=== PATIENT | male | born 1945 | race Two or more races ===

== ENCOUNTER 2020-02-04 22:49 | Inpatient (IN) | payer MEDICAID ==
[~2020-02-04] VITALS: Ht 157.5 cm; Wt 77.7 kg
[2020-02-04] MEDS ORDERED: ACETAMINOPHEN 650 mg PER 20 mL UD PO ONE (23:30)
[2020-02-04] MEDS ORDERED: PIPERACILLIN-TAZOB 3.375GM 100 ML IV ONE (23:45)
[2020-02-04 23:54] LABS: Basophils # (auto) 0.1 10 ^3/uL (0-0.2); Basophils % (auto) 0.5 % (0.0-2.0); Eosinophils # (auto) 0.8 10 ^3/uL (0-0.8); Eosinophils % (auto) 6.6 % (0.0-7.0); Hematocrit 30.4 % (41.0-53.0); Hemoglobin 10.3 g/dL (13.5-17.5); Lymphocytes # (auto) 0.6 10 ^3/uL (0.4-5.4); Lymphocytes % (auto) 4.6 % (10.0-50.0); Mean Corpuscular Hemoglobin 30.4 pg (28.0-32.0); Mean Corpuscular Hgb Conc. 33.8 g/dL (32.0-36.0); Mean Corpuscular Volume 89.8 fL (80.0-100.0); Monocytes # (auto) 0.6 10 ^3/uL (0-1.3); Monocytes % (auto) 5.3 % (0.0-12.0); Neutrophils # (auto) 10.1 10 ^3/uL (1.6-8.6); Platelet Count (auto) 257 10^3/uL (140-450); Red Blood Cells 3.38 10^6/uL (4.5-5.90); Red Cell Distribution Width 14.7 % (11.8-14.3); White Blood Cell 12.2 10^3/uL (4.4-10.8)
[2020-02-05 00:11] LABS: Albumin 3.2 g/dL (3.4-5.0); BUN/Creatinine Ratio 4.7; Calcium 8.8 mg/dL (8.5-10.1); Potassium 5.1 mmol/L (3.5-5.1)
[2020-02-05 00:16] LABS: Bilirubin, Total 0.4 mg/dL (0.2-1.0); Total Protein 7.3 g/dL (6.4-8.2)
[2020-02-05 01:04] LABS: Lactic Acid w/Reflex 2.1 mmol/L (0.4-2.0)
[2020-02-05] MEDS ORDERED: NITROGLYCERIN 0.4 MG SL TAB SL PRN (04:00)
[2020-02-05] MEDS ORDERED: MORPHINE SULFATE 4 MG/ML SYR/VIAL IV PRN (04:00)
[2020-02-05] MEDS ORDERED: VANCOMYCIN 1GM/250ML 250 ML IV ONE (04:00)
[2020-02-05] MEDS ORDERED: DEXTROSE (50%) 50ML SYRG IV PRN (04:00)
[2020-02-05] MEDS ORDERED: VANCOMYCIN PER PHARMACY 0 MG IV SCH (04:00)
[2020-02-05] MEDS: ACCU-CHEK COMFORT CURVE STRIP VI SCH ×6 (04:36→23:59)
[2020-02-05] MEDS: InsuLIN REG 1unit/0.01ml Soln (100units/ml) SC SCH ×6 (04:36→23:59)
[2020-02-05] MEDS: ENOXAPARIN SOD 80 MG/0.8ML SYRINGE SC SCH (05:27)
[2020-02-05] MEDS ORDERED: PIPERACILLIN-TAZOB 2.25GM 0.75 GM in D5W 5% 50 ML IV SCH ×2 (05:45→11:00)
[2020-02-05] MEDS ORDERED: PIPERACILLIN-TAZOB 3.375GM 100 ML IV SCH (06:00)
[2020-02-05 06:33] LABS: Basophils # (auto) 0.1 10 ^3/uL (0-0.2); Basophils % (auto) 0.7 % (0.0-2.0); Eosinophils # (auto) 0.5 10 ^3/uL (0-0.8); Hematocrit 31.7 % (41.0-53.0); Hemoglobin 10.9 g/dL (13.5-17.5); Lymphocytes # (auto) 0.8 10 ^3/uL (0.4-5.4); Mean Corpuscular Hemoglobin 30.9 pg (28.0-32.0); Mean Corpuscular Hgb Conc. 34.5 g/dL (32.0-36.0); Mean Corpuscular Volume 89.6 fL (80.0-100.0); Monocytes # (auto) 0.7 10 ^3/uL (0-1.3); Monocytes % (auto) 7.2 % (0.0-12.0); Neutrophils # (auto) 7.8 10 ^3/uL (1.6-8.6); Neutrophils % (auto) 79.1 % (37.0-80.0); Platelet Count (auto) 245 10^3/uL (140-450); Red Blood Cells 3.53 10^6/uL (4.5-5.90); Red Cell Distribution Width 14.5 % (11.8-14.3); White Blood Cell 9.9 10^3/uL (4.4-10.8)
[2020-02-05 08:12] LABS: BUN/Creatinine Ratio 4.7
[2020-02-05] MEDS ORDERED: CALCIUM GLUC 4.65meq/50ml D5AE 50 ML IV ONE (08:45)
[2020-02-05] MEDS ORDERED: InsuLIN REG 1unit/0.01ml Soln (100units/ml) IV ONE (08:45)
[2020-02-05] MEDS ORDERED: SODIUM ZIRCONIUM CYCL 10 GM PAK PO ONE (08:45)
[2020-02-05] MEDS ORDERED: DEXTROSE (50%) 50ML SYRG IV ONE (08:45)
[2020-02-05] MEDS ORDERED: SODIUM BICARBONATE 8.4 % INJ 50ML VIAL IV ONE (08:45)
[2020-02-05] MEDS: CLOPIDOGREL BISULFATE 75 MG TAB PO SCH (09:50)
[2020-02-05] MEDS ORDERED: LISINOPRIL 20 MG TAB PO SCH (10:00)
[2020-02-05] MEDS: ASPirin 81 mg TAB PO SCH (10:00)
[2020-02-05 11:00] VITALS: BP 157/79
--- NOTE | 2020-02-05 11:00 | NUR ---
Admit to [facility]ENNIFER[facility]ALITO admitted to [facility] via gurney on nurse monitoring, and portable 02. Patient transferred to bed, connected to unit monitoring and oxygen, [facility]. Patient awake and alert. Primary Anguillan speaking, [facility] clinical trial head utilized in communicating with patient. No S/S of SOB/distress or pain. Patient saturation 94% at 2 LPM oxygen via nasal cannula. LT arm AV fistula with bruit. See interventions for complete assessment. Bed locked on low position, side rails up x2, bed alarms on at all times, call crisostomo within reach, instructed to call for needed assistance. Patient oriented to Radha Allen primary RN, unit, room, bed, and unit policies regarding patient care and visiting hours. All questions and concerns addressed, patient verbalized understanding.
--- NOTE | 2020-02-05 11:05 | NUR ---
Per Lexie RIOS, they already called Nephrology consult to Dr Alcantara.
[2020-02-05 11:45] VITALS: BP 146/62
--- NOTE | 2020-02-05 11:57 | NUR ---
Lisinopril held at this time, patient for possible HD today.
[2020-02-05] MEDS: METOPROLOL TARTRATE 25 MG TAB PO SCH ×2 (12:00→21:58)
[2020-02-05] MEDS: DOCUSATE SOD 100 MG CAP PO SCH (12:00)
[2020-02-05] MEDS: PIPERACILLIN-TAZOB 2.25GM 50 ML IV SCH ×2 (12:00→21:57)
[2020-02-05 12:50] LABS: Potassium 4.9 mmol/L (3.5-5.1)
[2020-02-05 12:57] LABS: BUN/Creatinine Ratio 4.9; Calcium 9.5 mg/dL (8.5-10.1)
[2020-02-05] MEDS ORDERED: ESOM40CA83 PO (14:21)
[2020-02-05] MEDS ORDERED: FURO40TA4 PO (14:21)
[2020-02-05] MEDS ORDERED: SEVE800T PO (14:21)
[2020-02-05] MEDS ORDERED: AMLO5TAB15 PO (14:21)
[2020-02-05] MEDS ORDERED: NEPVITT PO (14:21)
--- NOTE | 2020-02-05 14:51 | NUR ---
Dr Mata at bedside, updated on patient's status. Patient seen and examined. Will carry out new orders.
--- NOTE | 2020-02-05 15:00 | NUR ---
Cindy Carnes EMERGENCY DEPARTMENT at bedside, updated on patient's status. Patient seen and examined. Will carry out new orders.
[2020-02-05 15:45] VITALS: BP 132/60
--- NOTE | 2020-02-05 15:48 | NUR ---
Patient's temperature 100.8F orally. Cooling measures done. Will continue to monitor.
[2020-02-05] MEDS: ACETAMINOPHEN 325 MG TAB PO PRN (16:50)
--- NOTE | 2020-02-05 16:51 | NUR ---
Patient's temperature 101F orally, Tylenol PRN given, will continue to monitor.
--- NOTE | 2020-02-05 17:55 | NUR ---
Patient's temperature 98.3 orally. Will continue to monitor.
--- NOTE | 2020-02-05 18:30 | NUR ---
Follow-up consult to Dr Alcantara.
--- NOTE | 2020-02-05 18:45 | NUR ---
Received call from Dr Mosquera, informed that patient goes to [facility] with Dr Alcantara. verbalized understanding and states "That's ok."
--- NOTE | 2020-02-05 18:51 | NUR ---
Spoke to Dr Alcantara over the phone, updated on patient's status. Plan to do HD tomorrow. Will carry out new orders.
--- NOTE | 2020-02-05 19:25 | NUR ---
Opening Shift Note ASSUMED CARE OF PATIENT IN ROOM 262. REPORT RECEIVED FROM DAY NURSE. PT AWAKE AND ALERT, NO S/S RESPIRATORY DISTRESS OR REPORTS OF PAIN. COMPLETE PHYSICAL ASSESSMENT UNDER INTERVENTIONS. CALL LIGHT WITHIN REACH AND BED LOCKED FOR SAFETY. WILL CONTINUE TO MONITOR FOR CHANGES.
[2020-02-05 20:00] VITALS: BP 140/69
[2020-02-05] MEDS: ATORVASTATIN 20 MG TAB PO SCH (21:57)
[2020-02-06] VITALS (7 sets, daily range): BP systolic 132–144; BP diastolic 63–77
--- NOTE | 2020-02-06 01:27 | NUR ---
HOSPITALIST PAGED AFTER USING RESTROOM PT FEELS SOB. PATIENT REPOSITIONED, AND HOB INCREASED. LUNG SOUNDS SOUNDING MORE COURSE.
--- NOTE | 2020-02-06 01:43 | NUR ---
RT AT BEDSIDE PT GETTING BREATHING TREATMENT.
[2020-02-06] MEDS: ALBUTEROL SULF 2.5 MG/0.5ML(0.5%) NEB SOLN NEB PRN ×2 (01:47→11:48)
--- NOTE | 2020-02-06 01:53 | NUR ---
RE-ASSESSMENT PT STILL SOUNDING COURSE AND CRACKLES THROUGHOUT. RR MID 30S PT USING ACCESSORY MUSCLES WITH SHALLOW BREATHING. USING SIMPLE MASK NOW. WILL NOTIFY HOSPITALIST.
--- NOTE | 2020-02-06 01:54 | NUR ---
Respiratory note: POST MED NEB TX PT STILL BREATH SOUNDS ARE COURSE T/O WITH INSPIRATORY CRACKLES HEARD T/O. PLACED PT ON SIMPLE MASK AT 8LPM TO MAINTAIN SATS ABOVE 92%. RN MADE AWARE OF O2 CHANGE. BLANCA CHUNGD MIRYAM WILL BE PAGED TO HOPEFULLY OBTAIN NEW ORDERS FOR PT. WILL CONTINUE TO MONITOR.
[2020-02-06] MEDS ORDERED: FUROSEMIDE 40 MG/4 ML VIAL ONE (02:18)
--- NOTE | 2020-02-06 02:22 | NUR ---
RESPIRATORY STATUS: Pt in respiratory distress. Pt's O2 sats 90-91% on 8 liters simple mask; HR in low 100s (Had previously been in 70s-80s), and respiratory rate in 30s-40s; lung sounds coarse. Pt states he feels SOB. Hospitalist notified of pt's status following breathing treatment and ADULT MINISTRIES DIRECTOR assessment. Order received for Lasix 40mg IVP x1. Lasix administered at this time. To continue to monitor pt.
[2020-02-06] MEDS ORDERED: FUROSEMIDE 40 MG/4 ML VIAL IV ONE (02:30)
[2020-02-06] MEDS: ONDANSETRON HCL 4 MG/2 ML VIAL IV PRN (02:40)
--- NOTE | 2020-02-06 02:40 | NUR ---
NAUSEA: Pt c/o nausea. Zofran 4mg IVP given for nausea as per order. To continue to monitor pt.
--- NOTE | 2020-02-06 02:45 | NUR ---
Respiratory note: Increased o2 consumption. Now at 12lpm on simple mask. Pt getting new IV access at this time, retort load expediterBLANCA Echols and BLANCA Gauthier at bedside. Pt has nausea at this time unable to place on bipap at this time.
--- NOTE | 2020-02-06 02:57 | NUR ---
RESPIRATORY STATUS: Pt continues to experience respiratory distress. Hospitalist notified and order received to begin pt on Bipap. UTILITIES EQUIPMENT REPAIRER at bedside at this time setting up Bipap for pt. To continue to monitor pt.
--- NOTE | 2020-02-06 03:00 | NUR ---
Respiratory note: PLACED PT ON BIPAP B11, BIPAP CONNECTED TO RED OUTLET AND O2 WALL SOURCE. ALARMS ARE SET AND AUDIBLE. AMBU BAG AND MASK AT BEDSIDE. BS ARE COURSE CRACKLES T/O, PT PLACED ON BIPAP DUE TO INCREASED WOB AND INCREASED O2 CONSUMPTION. PT LAST ON 12LPM SIMPLE MASK POX 84%.
[2020-02-06] MEDS: InsuLIN REG 1unit/0.01ml Soln (100units/ml) SC SCH ×6 (04:00→23:13)
[2020-02-06] MEDS: ACCU-CHEK COMFORT CURVE STRIP VI SCH ×6 (04:00→23:13)
--- NOTE | 2020-02-06 04:29 | NUR ---
Respiratory note: PT OFF BIPAP ON 4LPM NC POX 94-96%, BS IMPROVED, BS FINE COURSE T/O. PT COMFORTABLY RESTING IN BED. RN SCAR AWARE OF CHANGES
--- NOTE | 2020-02-06 05:00 | NUR ---
UNABLE TO COLLECT URINE SAMPLE PT HAD LITTLE URINE AND WHEN HE DID HE SAT ON TOILET AND WAS NOT ABLE TO COLLECT.
[2020-02-06] MEDS: ENOXAPARIN SOD 80 MG/0.8ML SYRINGE SC SCH (05:15)
[2020-02-06 05:39] LABS: Basophils # (auto) 0 10 ^3/uL (0-0.2); Basophils % (auto) 0.3 % (0.0-2.0); Eosinophils # (auto) 0.1 10 ^3/uL (0-0.8); Eosinophils % (auto) 0.8 % (0.0-7.0); Hematocrit 30.8 % (41.0-53.0); Hemoglobin 10.3 g/dL (13.5-17.5); Lymphocytes # (auto) 0.4 10 ^3/uL (0.4-5.4); Lymphocytes % (auto) 3.2 % (10.0-50.0); Mean Corpuscular Hemoglobin 30.4 pg (28.0-32.0); Mean Corpuscular Hgb Conc. 33.5 g/dL (32.0-36.0); Mean Corpuscular Volume 90.6 fL (80.0-100.0); Monocytes # (auto) 0.9 10 ^3/uL (0-1.3); Monocytes % (auto) 7.7 % (0.0-12.0); Nucleated Red Blood Cells % 0.1 %; Platelet Count (auto) 232 10^3/uL (140-450); Red Blood Cells 3.39 10^6/uL (4.5-5.90); Red Cell Distribution Width 14.4 % (11.8-14.3); White Blood Cell 11.4 10^3/uL (4.4-10.8)
[2020-02-06 05:52] LABS: INR 1.17 (0.9-1.15)
[2020-02-06 06:10] LABS: BUN/Creatinine Ratio 5.4; Calcium 9.3 mg/dL (8.5-10.1)
[2020-02-06 06:13] LABS: Potassium 6.7 mmol/L (3.5-5.1)
[2020-02-06] MEDS ORDERED: SODIUM CHL 0.9% 1000 ML BAG XX ONE (07:00)
--- NOTE | 2020-02-06 07:01 | NUR ---
HOSPITALIST PAGED REGARDING LAB VALUES THIS MORNING.
--- NOTE | 2020-02-06 07:38 | NUR ---
REPORT GIVEN PT APPEARS TO BE RESTING.
--- NOTE | 2020-02-06 07:50 | NUR ---
HD RN AT BEDSIDE: HD STARTED AT THIS TIME PATIENT LAYING SUPINE IN BED AT THIS TIME. PATIENT A & O X4 CALM AND FOLLOWS COMMANDS. PATIENT GEORGIAN SPEAKING ONLY. BLANCA TRIPLETT AT BEDSIDE MONITORING PATIENT. WILL CONTINUE TO MONITOR PATIENT. CONTINUE CARE.
[2020-02-06] MEDS ORDERED: MORPHINE SULF INJ 2 MG/ML SYRINGE 1ML IV ONE (09:30)
--- NOTE | 2020-02-06 09:30 | NUR ---
DR. TAVARES AT BEDSIDE: ORDERS MD UPDATED ON PT'S STATUS, LABS AND POC FOR TODAY. ORDERS GIVEN AND TO BE CARRIED OUT. SEE COMMUNICATION ORDER, PER DR. TAVARES.
[2020-02-06] MEDS: PIPERACILLIN-TAZOB 2.25GM 50 ML IV SCH ×2 (10:00→21:52)
[2020-02-06] MEDS: DOCUSATE SOD 100 MG CAP PO SCH (10:00)
[2020-02-06] MEDS: CLOPIDOGREL BISULFATE 75 MG TAB PO SCH (10:00)
--- NOTE | 2020-02-06 10:00 | NUR ---
FAMILY AT BEDSIDE: UPDATE TALKING WITH PATIENT'S SON AND AT BEDSIDE. UPDATED THEM ON PT'S CURRENT STATUS AND POC FOR TODAY. FAMILY REMAINS AT BEDSIDE TO VISIT PATIENT, WHILE PATIENT IS RECEIVING HD. HD RN AT BEDSIDE. CONTINUE CARE.
--- NOTE | 2020-02-06 10:41 | NUR ---
HD COMPLETED CURRENT POST HD VS: HR 99, BP 141/77, RR 16. HD RN REMOVED 3.3 LITERS FROM PATIENT DURING HD. CONTINUE CARE.
--- NOTE | 2020-02-06 11:48 | NUR ---
Respiratory note: ASSESSED PT FOR BREATHING TX. PT STATED HE WAS HAVING A SLIGHT DIFFICULT TIME BREATHING. PT IS AWAKE AND ALERT. PT IS CURRENTLY ON 4 L NASAL CANNULA. PT RECEIVED BREATHING TX W/O ANY ADVERSE REACTIONS. HR 102, RR 21, SPO2 98%. WILL CONTINUE TO MONITOR PT. BLANCA RITCHIE IS AWARE.
[2020-02-06] MEDS: ASPirin 81 mg TAB PO SCH (12:35)
[2020-02-06] MEDS: METOPROLOL TARTRATE 25 MG TAB PO SCH ×2 (12:35→21:53)
[2020-02-06] MEDS ORDERED: SODIUM ZIRCONIUM CYCL 10 GM PAK PO ONE (13:30)
--- NOTE | 2020-02-06 13:30 | NUR ---
DR. SIMS AT BEDSIDE: ORDERS MD UPDATED ON PT'S CURRENT STATUS, LABS AND POC FOR TODAY. WILL CARRY OUT ORDERS GIVEN. WILL CONTINUE TO MONITOR.
[2020-02-06] MEDS ORDERED: OPTISON 3ml Vial for INJ IV ONE (15:57)
[2020-02-06] MEDS ORDERED: VANCOMYCIN 1GM/250ML 250 ML IV ONE (16:00)
[2020-02-06] MEDS ORDERED: guaiFENesin-DM 100/10mg/5ml SYR PO PRN (16:45)
--- NOTE | 2020-02-06 16:46 | NUR ---
ASSESSMENT PER CONSULT HELP WITH INSURANCE. PER DUSTY HE WILL SEE PATIENT TODAY TO ASSESS FOR INSURANCE. Addendum: 02/06/20 at 1647 by Adenike Perales Amended: Links added.
[2020-02-06 18:09] LABS: BUN/Creatinine Ratio 4.8; Calcium 9.4 mg/dL (8.5-10.1); Potassium 5.1 mmol/L (3.5-5.1)
[2020-02-06] MEDS: ACETYLCYSTEINE 10 %(100MG/ML) SOL 4ML NEB SCH (18:33)
[2020-02-06] MEDS: IPRATROPIUM BROM 0.5 MG/2.5ML INH SOL NEB SCH (18:33)
[2020-02-06] MEDS: ALBUTEROL SULF 2.5 MG/0.5ML(0.5%) NEB SOLN NEB SCH (18:33)
--- NOTE | 2020-02-06 20:00 | NUR ---
SHIFT OPENING NOTE RECEIVED PATIENT AWAKE, ALERT AND ORIENTED X4. NO SOB, DISTRESS OR PAIN NOTED. ON 4L N/C POX 96%. PATIENT RECEIVED DIALYSIS EARLIER TODAY WITH ACCESS SITE LEFT AV FISTULA 3.3 L OUT. PATIENT IS OLIGURIC WITH URINAL AT BEDSIDE. PHYSICAL ASSESSMENT COMPLETED, SEE INTERVENTIONS. INSTRUCTED ON POC AND TO CALL FOR ASSIST NEEDED. BED IS IN THE LOWEST POSITION WITH THE SIDE RAILS UP X2, CALL LIGHT IS WITHIN REACH.
[2020-02-06] MEDS: ATORVASTATIN 20 MG TAB PO SCH (21:53)
[2020-02-06] MEDS ORDERED: CARVEDILOL 12.5 MG TAB PO SCH (22:00)
[2020-02-07] VITALS: BP 125/59
[2020-02-07] MEDS: ALBUTEROL SULF 2.5 MG/0.5ML(0.5%) NEB SOLN NEB PRN ×2 (00:19→23:55)
[2020-02-07] MEDS: ACETYLCYSTEINE 10 %(100MG/ML) SOL 4ML NEB SCH ×5 (00:19→23:55)
--- NOTE | 2020-02-07 01:55 | NUR ---
MORNING HYGIENE CARE FULL BED BATH PERFORMED WITH WARM SOAPY WASH CLOTHES. GOWN CHANGED. PARTIAL LINEN CHANGED. PATIENT REPOSITIONED FOR COMFORT. TOLERATED IT WELL.
[2020-02-07] MEDS: ACCU-CHEK COMFORT CURVE STRIP VI SCH ×6 (03:36→23:42)
[2020-02-07] MEDS: InsuLIN REG 1unit/0.01ml Soln (100units/ml) SC SCH ×6 (03:36→23:42)
[2020-02-07 03:44] VITALS: BP 122/55
[2020-02-07] MEDS: ENOXAPARIN SOD 80 MG/0.8ML SYRINGE SC SCH ×2 (05:11→23:42)
[2020-02-07 05:58] LABS: Basophils # (auto) 0.1 10 ^3/uL (0-0.2); Basophils % (auto) 0.8 % (0.0-2.0); Eosinophils # (auto) 0.4 10 ^3/uL (0-0.8); Eosinophils % (auto) 5.7 % (0.0-7.0); Hematocrit 27.7 % (41.0-53.0); Hemoglobin 9.4 g/dL (13.5-17.5); Lymphocytes % (auto) 12.9 % (10.0-50.0); Mean Corpuscular Hemoglobin 30.5 pg (28.0-32.0); Mean Corpuscular Hgb Conc. 33.9 g/dL (32.0-36.0); Mean Corpuscular Volume 89.9 fL (80.0-100.0); Monocytes % (auto) 13.6 % (0.0-12.0); Neutrophils # (auto) 5.1 10 ^3/uL (1.6-8.6); Nucleated Red Blood Cells % 0.1 %; Platelet Count (auto) 227 10^3/uL (140-450); Red Blood Cells 3.08 10^6/uL (4.5-5.90); Red Cell Distribution Width 14.3 % (11.8-14.3); White Blood Cell 7.6 10^3/uL (4.4-10.8)
[2020-02-07 06:16] LABS: Albumin 2.7 g/dL (3.4-5.0); Calcium 8.9 mg/dL (8.5-10.1); Potassium 5.1 mmol/L (3.5-5.1)
[2020-02-07 06:23] LABS: Bilirubin, Total 0.4 mg/dL (0.2-1.0); Total Protein 6.6 g/dL (6.4-8.2)
--- NOTE | 2020-02-07 06:40 | NUR ---
END OF SHIFT PATIENT IS QUIETLY LAYING IN BED SLEEPING. NO SOB, DISTRESS OR PAIN NOTED. ON 4L N/C. WILL GIVE REPORT AND ENDORSE CARE TO THE DAY SHIFT RN.
[2020-02-07] MEDS: IPRATROPIUM BROM 0.5 MG/2.5ML INH SOL NEB SCH ×3 (07:00→18:57)
[2020-02-07] MEDS: ALBUTEROL SULF 2.5 MG/0.5ML(0.5%) NEB SOLN NEB SCH ×3 (07:00→18:56)
[2020-02-07 07:40] VITALS: BP 110/47
--- NOTE | 2020-02-07 07:59 | NUR ---
Patient primary Pitcairn Islander speaking. [facility] luster applicator # [id number] utilized in communicating with patient.
--- NOTE | 2020-02-07 08:00 | NUR ---
Opening Shift Note Assumed care of patient, laying in bed, eyes closed, arousable to light shaking, oriented. No S/S of distress/SOB or pain. Patient saturation 97% at 4 LPM oxygen via nasal cannula. See interventions for complete assessment. Bed locked on low position, side rails up x2, bed alarms on at all times, call crisostomo within reach, instructed on POC and to call for assist PRN, will continue to monitor for changes Q1hr and PRN.
--- NOTE | 2020-02-07 09:20 | NUR ---
Paged Cindy Carnes SCHOOL AGE PROGRAM TEACHER regarding patient's Troponin 3.290, awaiting call back.
[2020-02-07] MEDS: PIPERACILLIN-TAZOB 2.25GM 50 ML IV SCH ×2 (09:22→21:14)
[2020-02-07] MEDS: CLOPIDOGREL BISULFATE 75 MG TAB PO SCH (09:23)
[2020-02-07] MEDS: METOPROLOL TARTRATE 25 MG TAB PO SCH ×2 (09:23→21:02)
[2020-02-07] MEDS: SODIUM ZIRCONIUM CYCL 10 GM PAK PO SCH (09:23)
[2020-02-07] MEDS: DOCUSATE SOD 100 MG CAP PO SCH (09:24)
[2020-02-07] MEDS: ASPirin 81 mg TAB PO SCH (09:24)
--- NOTE | 2020-02-07 11:00 | NUR ---
[employer] Ecologist Sandoval at bedside.
[2020-02-07 11:40] VITALS: BP 105/44
--- NOTE | 2020-02-07 11:40 | NUR ---
Dr Atkinson at bedside, updated on patient's status. Informed of patient's Troponin 3.290. verbalized understanding. Patient seen and examined. Will carry out new orders.
--- NOTE | 2020-02-07 11:45 | NUR ---
Re-paged Cindy Carnes TELETYPE ADJUSTER regarding patient's Troponin, awaiting call back.
--- NOTE | 2020-02-07 14:37 | NUR ---
Re-paged Cindy Carnes AIRCRAFT LOADMASTER SUPERINTENDENT regarding patient's Troponin level, awaiting call back. cant hooker Paul informed AIRCRAFT LOADMASTER SUPERINTENDENT not responding despite multiple pages.
[2020-02-07 15:40] VITALS: BP 115/53
--- NOTE | 2020-02-07 16:10 | NUR ---
Dr Ambrosio at bedside, updated on patient's status. Informed of patient's troponin 3.290, verbalized understanding. Patient seen and examined. Received verbal order to schedule Heart Catheterization tomorrow, called Options Advisor. Orders read back and verified. Will carry out.
--- NOTE | 2020-02-07 16:45 | NUR ---
Paged Dr Atkinson to update on patient's status and procedure tomorrow, awaiting call back.
--- NOTE | 2020-02-07 17:30 | NUR ---
Urine sample sent to lab.
[2020-02-07 17:46] LABS: Urine Bacteria NONE SEEN /hpf (None Seen); Urine Blood TRACE /uL (Negative); Urine Specific Gravity 1.008 (1.001-1.035); Urine WBC 6 /hpf (0 - 3)
--- NOTE | 2020-02-07 18:29 | NUR ---
RT NOTE PT WAS SEEN BY RT FOR HHN TX. PT IS EATING EVENING MEAL. RT WILL RETURN.
--- NOTE | 2020-02-07 18:55 | NUR ---
RT NOTE PT WAS SEEN BY RT FOR HHN TX. PT TOLERATES WELL VIA MASK. NO ADVERSE REACTION NOTED. CONT ORDERED Addendum: 02/07/20 at 1919 by Juanita Tse RT Amended: Links added.
[2020-02-07 20:00] VITALS: BP 114/62
--- NOTE | 2020-02-07 20:00 | NUR ---
SHIFT OPENING NOTE RECEIVED PATIENT AWAKE, ALERT AND ORIENTED X4. NO SOB, DISTRESS OR PAIN NOTED. ON 3L N/C POX 98%. LEFT AV FISTULA NOTED. PATIENT IS OLIGURIC WITH URINAL AT BEDSIDE. PHYSICAL ASSESSMENT COMPLETED, SEE INTERVENTIONS. INSTRUCTED ON POC AND TO CALL FOR ASSIST NEEDED. BED IS IN THE LOWEST POSITION WITH THE SIDE RAILS UP X2, CALL LIGHT IS WITHIN REACH.
[2020-02-07] MEDS: ATORVASTATIN 20 MG TAB PO SCH (21:13)
--- NOTE | 2020-02-07 23:56 | NUR ---
RT NOTE PT WAS SEEN BY RT FOR HHN TX. PT TOLERATES WELL VIA MASK. NO ADVERSE REACTION NOTED. CONT ORDERED Addendum: 02/07/20 at 2357 by Juanita Tse RT Amended: Links added.
[2020-02-08] VITALS (7 sets, daily range): BP systolic 129–157; BP diastolic 58–74
--- NOTE | 2020-02-08 03:20 | NUR ---
MORNING HYGIENE CARE FULL BED BATH PERFORMED WITH CHG WIPES FOR PROCEDURE PREP. ORAL CARE INDEPENDENTLY DONE BY PATIENT. FULL LINEN CHANGE. GOWN CHANGED. PATIENT REPOSITIONED FOR COMFORT. TOLERATED IT WELL.
[2020-02-08] MEDS: InsuLIN REG 1unit/0.01ml Soln (100units/ml) SC SCH ×3 (03:48→12:00)
[2020-02-08] MEDS: ACCU-CHEK COMFORT CURVE STRIP VI SCH ×3 (03:48→13:34)
[2020-02-08 06:57] LABS: Basophils # (auto) 0.1 10 ^3/uL (0-0.2); Basophils % (auto) 0.8 % (0.0-2.0); Eosinophils # (auto) 0.8 10 ^3/uL (0-0.8); Eosinophils % (auto) 11.3 % (0.0-7.0); Hematocrit 27.6 % (41.0-53.0); Hemoglobin 9.6 g/dL (13.5-17.5); Lymphocytes % (auto) 14.7 % (10.0-50.0); Mean Corpuscular Hemoglobin 31.1 pg (28.0-32.0); Mean Corpuscular Hgb Conc. 34.7 g/dL (32.0-36.0); Mean Corpuscular Volume 89.7 fL (80.0-100.0); Monocytes # (auto) 0.7 10 ^3/uL (0-1.3); Monocytes % (auto) 10.5 % (0.0-12.0); Neutrophils # (auto) 4.4 10 ^3/uL (1.6-8.6); Neutrophils % (auto) 62.7 % (37.0-80.0); Platelet Count (auto) 216 10^3/uL (140-450); Red Blood Cells 3.08 10^6/uL (4.5-5.90); Red Cell Distribution Width 14.6 % (11.8-14.3)
[2020-02-08] MEDS: ACETYLCYSTEINE 10 %(100MG/ML) SOL 4ML NEB SCH ×3 (07:00→18:00)
[2020-02-08] MEDS: ALBUTEROL SULF 2.5 MG/0.5ML(0.5%) NEB SOLN NEB SCH ×3 (07:00→18:00)
[2020-02-08] MEDS: IPRATROPIUM BROM 0.5 MG/2.5ML INH SOL NEB SCH ×3 (07:00→18:00)
[2020-02-08] MEDS ORDERED: SODIUM CHL 0.9% 1000 ML BAG XX ONE (07:00)
[2020-02-08 07:10] LABS: INR 1.06 (0.9-1.15); Partial Thromboplastin Time 42.7 sec (23.64-32.05)
[2020-02-08 07:19] LABS: Albumin 2.7 g/dL (3.4-5.0); BUN/Creatinine Ratio 6.3; Potassium 5.2 mmol/L (3.5-5.1)
[2020-02-08 07:22] LABS: Bilirubin, Total 0.3 mg/dL (0.2-1.0); Total Protein 6.7 g/dL (6.4-8.2)
--- NOTE | 2020-02-08 08:15 | NUR ---
IV removal IV on RT forearm tender, puffy and leaking, discontinued with sterile technique, catheter fully intact. Pressure dressing applied to site. Patient tolerated procedure well.
--- NOTE | 2020-02-08 08:15 | NUR ---
Opening Shift Note Assumed care of patient, awake and alert. Patient primary Cypriot speaking, [employer] director supply chain # [id number] used in communicating with patient. No S/S of distress/SOB or pain. Patient saturation 99% at 3 LPM oxygen via nasal cannula. Patient scheduled for heart cath around 1300 per Parliamentary Counsel BLANCA Hurtado. HD BLANCA Coreas for [facility] informed and verbalized understanding. Patient instructed on NPO and verbalized understanding. Bed locked on low position, side rails up x2, bed alarms on at all times, call crisostomo within reach, instructed on POC and to call for assist PRN, will continue to monitor for changes Q1hr and PRN.
[2020-02-08] MEDS: SODIUM ZIRCONIUM CYCL 10 GM PAK PO SCH (10:00)
[2020-02-08] MEDS: METOPROLOL TARTRATE 25 MG TAB PO SCH ×2 (10:34→22:00)
[2020-02-08] MEDS: ASPirin 81 mg TAB PO SCH (10:35)
[2020-02-08] MEDS: CLOPIDOGREL BISULFATE 75 MG TAB PO SCH (10:35)
[2020-02-08] MEDS: DOCUSATE SOD 100 MG CAP PO SCH (10:35)
--- NOTE | 2020-02-08 11:30 | NUR ---
IV insertion IV access obtained, via clean sterile technique by inserting 22 gauge catheter at RT forearm after two attempts. IV secured properly. No trauma to site. Patient tolerated procedure well.
--- NOTE | 2020-02-08 11:50 | NUR ---
Dr Ambrosio at bedside, updated on patient's status. Patient seen and examined. Will do heart cath today. Will facilitate.
--- NOTE | 2020-02-08 12:00 | NUR ---
Dr tAkinson at bedside, updated on patient's status. Informed of [facility] recommendation to discontinue Zosyn and Vancomycin and start patient on Levaquin per respiratory culture report, MD verbalized understanding and states may go ahead with recommendation. Will inform pharmacy. Received verbal order to discontinue accucheck. Orders read back and verified. Will carry out.
[2020-02-08] MEDS ORDERED: levoFLOXacin 750MG 150 ML IV ONE (14:00)
--- NOTE | 2020-02-08 14:12 | NUR ---
Called hospital laboratory technician and spoke to Shobha RN, per Shobha patient is re-scheduled for tomorrow.
--- NOTE | 2020-02-08 15:36 | NUR ---
assessment Patient is a 75 year old male who is Bahamian speaking. I called patients son José and he informed me that patient has insurance, but he was unable to talk right now. I will follow up later. Addendum: 02/08/20 at 1537 by Adenike MALDONADO Amended: Links added.
--- NOTE | 2020-02-08 15:57 | NUR ---
Nutrition Assessment Notes Please refer to link for full assessment notes. Est energy needs: 0186-3921 kcals (23-25 kcal/kgBW) d/t pt on HD Est protein needs: 86-94 gms/day (1.1-1.2 gm/kgBW) d/t pt on HD Will continue to monitor and reassess prn. Addendum: 02/08/20 at [address] Amended: Links added.
--- NOTE | 2020-02-08 15:58 | NUR ---
Called pharmacy regarding patient's Levaquin since he will be getting HD in an hour. Per Janelle [facility], it is ok to give Levaquin.
--- NOTE | 2020-02-08 16:15 | NUR ---
Paged Dr Atkinson and called back, updated on patient's status. Informed heart cath was re-schedule for tomorrow, verbalized understanding. Received telephone order to transfer patient to Telemetry. Orders read back and verified. Will carry out.
--- NOTE | 2020-02-08 16:48 | NUR ---
[facility] pt transferred to floor [facility] Covarrubias transferred to Tele floor via wheelchair on property assessment monitor and portable 02. All patient medications and personal belongings transfered with patient to receiving floor. Patient care transferred to Lilia RIOS.
--- NOTE | 2020-02-08 16:54 | NUR ---
Pt Arrived in Unit Pt arrived on unit from [facility] via wheelchair. Pt is a/ox with no s/s of distress or SOB. Pt able to ambulate to bed without any difficulty. Dialysis nurse is at bedside for dialysis treatment. Safety measures maintained with call light within reach, bed in lowest position and side rails up. Will continue to monitor.
--- NOTE | 2020-02-08 19:30 | NUR ---
Opening Shift Note Assumed care of patient, awake and alert. No S/S of distress/SOB or pain. Patient on 3L NC and tolerating well. Instructed on POC and to call for assist PRN, will continue to monitor for changes Q1hr and PRN. Bed is in lowest position, bed rails 2x, bed wheels locked. Call light and bedside table are within reach.
[2020-02-08] MEDS ORDERED: EPOETIN ALFA 4,000 UNIT/ML VL SC ONE (21:00)
[2020-02-08] MEDS: ATORVASTATIN 20 MG TAB PO SCH (22:30)
[2020-02-08] MEDS ORDERED: EPOETIN ALFA 10,000 UNIT/1 ML VIAL ONE (23:46)
[2020-02-09] MEDS: ACETYLCYSTEINE 10 %(100MG/ML) SOL 4ML NEB SCH ×4 (00:02→19:50)
[2020-02-09] MEDS: ALBUTEROL SULF 2.5 MG/0.5ML(0.5%) NEB SOLN NEB PRN (00:03)
[2020-02-09 00:53] VITALS: BP 157/67
[2020-02-09] MEDS: ACETAMINOPHEN 325 MG TAB PO PRN (02:20)
[2020-02-09] MEDS: ENOXAPARIN SOD 80 MG/0.8ML SYRINGE SC SCH (05:00)
[2020-02-09 05:39] VITALS: BP 151/73
[2020-02-09] MEDS: IPRATROPIUM BROM 0.5 MG/2.5ML INH SOL NEB SCH ×3 (06:02→19:50)
[2020-02-09] MEDS: ALBUTEROL SULF 2.5 MG/0.5ML(0.5%) NEB SOLN NEB SCH ×3 (06:02→19:50)
--- NOTE | 2020-02-09 07:20 | NUR ---
Closing Shift Note Endorsed care to morning shift nurse. No complaints of pain at this time. Bed is in lowest position, bed wheels locked, bed rails 2x. Call light and bedside table are within reach.
[2020-02-09 07:59] LABS: Basophils # (auto) 0 10 ^3/uL (0-0.2); Basophils % (auto) 0.8 % (0.0-2.0); Eosinophils # (auto) 0.5 10 ^3/uL (0-0.8); Eosinophils % (auto) 9.7 % (0.0-7.0); Hematocrit 28.2 % (41.0-53.0); Hemoglobin 9.5 g/dL (13.5-17.5); Lymphocytes # (auto) 1.1 10 ^3/uL (0.4-5.4); Lymphocytes % (auto) 21.2 % (10.0-50.0); Mean Corpuscular Hemoglobin 30.3 pg (28.0-32.0); Mean Corpuscular Hgb Conc. 33.8 g/dL (32.0-36.0); Mean Corpuscular Volume 89.6 fL (80.0-100.0); Monocytes # (auto) 0.6 10 ^3/uL (0-1.3); Monocytes % (auto) 11.6 % (0.0-12.0); Neutrophils % (auto) 56.7 % (37.0-80.0); Nucleated Red Blood Cells % 0.1 %; Platelet Count (auto) 216 10^3/uL (140-450); Red Blood Cells 3.15 10^6/uL (4.5-5.90); Red Cell Distribution Width 14.5 % (11.8-14.3); White Blood Cell 5.4 10^3/uL (4.4-10.8)
[2020-02-09 08:14] LABS: INR 1.13 (0.9-1.15); Partial Thromboplastin Time 31.8 sec (23.64-32.05)
--- NOTE | 2020-02-09 08:15 | NUR ---
Opening Shift Note Assumed care of patient, awake, alert, and oriented. No S/S of distress/SOB or pain. Bed in lowest/locked position, bed rails up x2, call light within reach. Instructed on POC and to call for assist PRN. Will continue to monitor for changes Q1hr and PRN.
[2020-02-09 08:16] LABS: Potassium 4.3 mmol/L (3.5-5.1)
[2020-02-09 09:00] VITALS: BP 142/60
[2020-02-09] MEDS: SODIUM ZIRCONIUM CYCL 10 GM PAK PO SCH (10:00)
[2020-02-09] MEDS: levoFLOXacin 500MG 100 ML IV SCH (10:34)
[2020-02-09] MEDS: ASPirin 81 mg TAB PO SCH (10:35)
[2020-02-09] MEDS: DOCUSATE SOD 100 MG CAP PO SCH (10:35)
[2020-02-09] MEDS: CLOPIDOGREL BISULFATE 75 MG TAB PO SCH (10:35)
[2020-02-09] MEDS: METOPROLOL TARTRATE 25 MG TAB PO SCH ×2 (10:35→22:23)
[2020-02-09 13:23] VITALS: BP 138/72
--- NOTE | 2020-02-09 14:02 | NUR ---
OFF UNIT PATIENT TAKEN TO ASSEMBLER CRIMPER
[2020-02-09] MEDS ORDERED: ANGIOMAX 250 MG VIAL IV ONE (15:02)
[2020-02-09] MEDS ORDERED: fentaNYL CITRATE 100 MCG/2 ML VL ONE (15:02)
[2020-02-09] MEDS ORDERED: LIDOCAINE 2%HCL (LOCAL ANESTH.) INJ 20ML MDV ONE (15:02)
[2020-02-09] MEDS ORDERED: MIDAZOLAM HCL 1MG/1ML-2 ML VIAL ONE (15:02)
[2020-02-09] MEDS ORDERED: SODIUM CHL 0.9% 0 ML ONE (15:02)
[2020-02-09] MEDS ORDERED: IODIXANOL 320MG/ML 100ML BTL IV ONE (15:02)
--- NOTE | 2020-02-09 15:04 | NUR ---
assessment Patient is a 75 year old male who is alert and oriented. Per patients andre Kumar prior to admission patient lived home with family and functioned with assistance. Per José patient had insurance. Eliseo De Souza informed me patients Medi-feli was termed and he is securing patients Medi-feli again. I have provided patient with resources for [facility], Dr. Varghese, and [facility] urgent care for follow up visits. I have provided patient with a prescription card from community assistance program. Patient will return home with family on discharge. Addendum: 02/09/20 at 1511 by Adenike MALDONADO Amended: Links added.
[2020-02-09] MEDS ORDERED: VERAPAMIL 2.5MG/ML INJ 2ML VIAL IV ONE (15:24)
[2020-02-09] MEDS ORDERED: HEPARIN SODIUM (PORCINE) 5000 UNITS/ML 1ML VIAL ONE (15:24)
--- NOTE | 2020-02-09 17:02 | NUR ---
ON UNIT PATIENT RETURNED TO ROOM. RIGHT WRIST VASC BAND APPLIED. NO S/S OF BLEEDING, DISTRESS. PATIENT TOLERATING WELL. WILL CONTINUE TO MONITOR
--- NOTE | 2020-02-09 19:20 | NUR ---
Opening Shift Note Assumed care of patient, awake and alert. Family at bedside. No S/S of distress/SOB or pain. Patient is on 3L NC and tolerating well. Vasc band in place at right wrist, no bleeding, adequate circulation noted, present at this time will continue to remove air per protocol. Instructed on POC and to call for assist PRN, will continue to monitor for changes Q1hr and PRN. Bed is in lowest position, bed rails 2x, bed wheels locked. Call light and bedside table are within reach.
[2020-02-09 22:00] VITALS: BP 143/73
[2020-02-09] MEDS: ATORVASTATIN 20 MG TAB PO SCH (22:22)
[2020-02-10] MEDS: ACETYLCYSTEINE 10 %(100MG/ML) SOL 4ML NEB SCH ×4 (00:55→18:37)
[2020-02-10] MEDS: ALBUTEROL SULF 2.5 MG/0.5ML(0.5%) NEB SOLN NEB PRN (00:56)
[2020-02-10 04:58] VITALS: BP 120/66
[2020-02-10] MEDS: ENOXAPARIN SOD 80 MG/0.8ML SYRINGE SC SCH (05:28)
[2020-02-10 05:32] LABS: Basophils # (auto) 0.1 10 ^3/uL (0-0.2); Basophils % (auto) 0.9 % (0.0-2.0); Eosinophils # (auto) 0.4 10 ^3/uL (0-0.8); Eosinophils % (auto) 7.7 % (0.0-7.0); Hematocrit 25.9 % (41.0-53.0); Hemoglobin 8.9 g/dL (13.5-17.5); Lymphocytes % (auto) 19.4 % (10.0-50.0); Mean Corpuscular Hemoglobin 30.8 pg (28.0-32.0); Mean Corpuscular Hgb Conc. 34.4 g/dL (32.0-36.0); Mean Corpuscular Volume 89.4 fL (80.0-100.0); Monocytes # (auto) 0.6 10 ^3/uL (0-1.3); Monocytes % (auto) 10.4 % (0.0-12.0); Neutrophils # (auto) 3.3 10 ^3/uL (1.6-8.6); Neutrophils % (auto) 61.6 % (37.0-80.0); Platelet Count (auto) 221 10^3/uL (140-450); Red Cell Distribution Width 14.1 % (11.8-14.3); White Blood Cell 5.4 10^3/uL (4.4-10.8)
[2020-02-10 05:50] LABS: Potassium 4.7 mmol/L (3.5-5.1)
[2020-02-10 05:59] LABS: Albumin 2.6 g/dL (3.4-5.0); Bilirubin, Total 0.4 mg/dL (0.2-1.0); Calcium 8.8 mg/dL (8.5-10.1); Total Protein 6.4 g/dL (6.4-8.2)
[2020-02-10] MEDS: IPRATROPIUM BROM 0.5 MG/2.5ML INH SOL NEB SCH ×3 (06:11→18:37)
[2020-02-10] MEDS: ALBUTEROL SULF 2.5 MG/0.5ML(0.5%) NEB SOLN NEB SCH ×3 (06:11→18:37)
--- NOTE | 2020-02-10 07:10 | NUR ---
Called hospitalist Received call from lab for elevated troponin and elevated Creatinine.
--- NOTE | 2020-02-10 07:28 | NUR ---
Closing shift note Paged hospitalist for critical labs, awaiting call back. Endorsed care and critical labs to morning nurse.
--- NOTE | 2020-02-10 07:29 | NUR ---
Opening Shift Note: Assumed care of patient, awake and alert. No S/S of distress/SOB or pain. Will contact hospitalist regarding critical lab values. Bed in lowest locked position, side rails up x 2, call light within reach. Patient instructed on POC and to call for assist PRN, will continue to monitor for changes Q1hr and PRN.
[2020-02-10 09:00] VITALS: BP 133/68
[2020-02-10] MEDS ORDERED: SODIUM CHL 0.9% 1000 ML BAG XX ONE (09:45)
--- NOTE | 2020-02-10 09:52 | NUR ---
Dialysis nurse at bedside.
[2020-02-10] MEDS: METOPROLOL TARTRATE 25 MG TAB PO SCH ×2 (10:00→22:00)
[2020-02-10] MEDS: DOCUSATE SOD 100 MG CAP PO SCH (10:00)
[2020-02-10] MEDS: ASPirin 81 mg TAB PO SCH (10:00)
[2020-02-10] MEDS: SODIUM ZIRCONIUM CYCL 10 GM PAK PO SCH (10:00)
--- NOTE | 2020-02-10 11:18 | NUR ---
1200 MED NEB TX NOT ADMINISTERED DUE TO PT RECEIVING DIALYSIS AT THIS TIME. NO RESPIRATORY DISTRESS NOTE.D PT ON 2LNC, SPO2 95%. RN ALICJA AWARE OF NON ADMINISTERED MED.
[2020-02-10 12:45] VITALS: BP 122/45
[2020-02-10] MEDS: CLOPIDOGREL BISULFATE 75 MG TAB PO SCH (13:26)
[2020-02-10] MEDS ORDERED: diphenhdrAMINE HCL 25 MG CAP PO PRN ×2 (14:15→14:30)
[2020-02-10] MEDS: ONDANSETRON HCL 4 MG/2 ML VIAL IV PRN (15:42)
--- NOTE | 2020-02-10 16:29 | NUR ---
IV removal: right hand IV DC'd with clean sterile technique, catheter fully intact. Pressure dressing applied to site. Patient tolerated well.
[2020-02-10 16:44] VITALS: BP 150/67
--- NOTE | 2020-02-10 17:55 | NUR ---
1800 BP: BP 150/67 DR. SIMS CALLED AND NOTIFIED. NEW ORDERS PLACED, READ BACK AND VERIFIED.
[2020-02-10] MEDS ORDERED: cloNIDine HCL 0.1 MG TAB PO PRN (18:00)
--- NOTE | 2020-02-10 19:23 | NUR ---
CLOSING NOTE: Patient resting in bed. No S/S of pain, distress or SOB at this time. Respirations even and unlabored. Care endorsed to NOC RN
--- NOTE | 2020-02-10 19:40 | NUR ---
OPENING SHIFT NOTE Assumed care of patient who is A&O x4; Slovak speaking only. Currently on 2L NC with no s/s of distress. Denies SOB or pain at this time. Pressure dressing on right wrist is CDI. area is soft and nontender to palpation. No pain noted. Pulse is intact. AV fistula in left upper arm, accessed by dialysis nurse today. PIV in left AC is intact and patent. Flushed with 10ml NS. Patient is ambulatory at baseline. Bed is in low locked position with side rails up x2. Call light is within reach and patient encouraged to call for assistance when needed. Will continue to monitor for changes PRN.
[2020-02-10] MEDS ORDERED: EPOETIN ALFA 4,000 UNIT/ML VL SC ONE (21:00)
[2020-02-10 21:34] VITALS: BP 117/73
[2020-02-10] MEDS: ATORVASTATIN 20 MG TAB PO SCH (22:07)
--- NOTE | 2020-02-10 22:16 | NUR ---
BP meds 2200 dose of Lopressor held due to BP of 117/73. Will continue to monitor for changes.
[2020-02-11 04:54] VITALS: BP 120/50
[2020-02-11] MEDS: ENOXAPARIN SOD 80 MG/0.8ML SYRINGE SC SCH (05:38)
[2020-02-11 06:00] LABS: Hematocrit 28.9 % (41.0-53.0); Hemoglobin 9.5 g/dL (13.5-17.5); Mean Corpuscular Hemoglobin 30.5 pg (28.0-32.0); Mean Corpuscular Hgb Conc. 32.9 g/dL (32.0-36.0); Mean Corpuscular Volume 92.6 fL (80.0-100.0); Platelet Count (auto) 251 10^3/uL (140-450); Red Blood Cells 3.12 10^6/uL (4.5-5.90); Red Cell Distribution Width 14.5 % (11.8-14.3); White Blood Cell 6.2 10^3/uL (4.4-10.8)
[2020-02-11] MEDS: ACETYLCYSTEINE 10 %(100MG/ML) SOL 4ML NEB SCH ×3 (06:02→19:36)
[2020-02-11] MEDS: IPRATROPIUM BROM 0.5 MG/2.5ML INH SOL NEB SCH ×3 (06:02→19:35)
[2020-02-11] MEDS: ALBUTEROL SULF 2.5 MG/0.5ML(0.5%) NEB SOLN NEB SCH ×3 (06:02→19:35)
[2020-02-11 06:08] LABS: Band Neutrophils % (manual) 0; Basophils % (manual) 0 (0.0-2.0); Blast Cells 0; Metamyelocytes % 0; Myelocytes % 0; Promyelocytes % 0; Reactive Lymphocytes 0
[2020-02-11 06:17] LABS: BUN/Creatinine Ratio 4.5; Calcium 8.7 mg/dL (8.5-10.1); Potassium 4.5 mmol/L (3.5-5.1)
--- NOTE | 2020-02-11 07:30 | NUR ---
OPENING NOTE ASSUMED CARE PT. PT ALERT AND ORIENTED X4. NO S/S OF SOB AND DISTRESS NOTED. SAFETY PRECAUTIONS IN PLACE. BED SET TO LOWEST POSITION/LOCKED. BED SIDE RAILS UP X2. CALL LIGHT WITHIN REACH. INSTRUCTED PT TO CALL FOR ASSISTANCE. PT UPDATED ON POC. PT VERBALIZED UNDERSTANDING. WILL CONTINUE TO MONITOR Q1HR AND PRN.
[2020-02-11 08:31] LABS: Eosinophils % (manual) 8 (0-7); Lymphocytes % (manual) 25 (10.0-50.0); Monocytes % (manual) 10 (0-12)
[2020-02-11 09:19] VITALS: BP 129/71
[2020-02-11] MEDS: DOCUSATE SOD 100 MG CAP PO SCH (10:00)
[2020-02-11] MEDS: SODIUM ZIRCONIUM CYCL 10 GM PAK PO SCH (10:00)
[2020-02-11] MEDS: ASPirin 81 mg TAB PO SCH (10:46)
[2020-02-11] MEDS: CLOPIDOGREL BISULFATE 75 MG TAB PO SCH (10:46)
[2020-02-11] MEDS: METOPROLOL TARTRATE 25 MG TAB PO SCH ×2 (10:47→22:00)
[2020-02-11] MEDS: levoFLOXacin 500MG 100 ML IV SCH (10:52)
[2020-02-11] MEDS ORDERED: SODIUM CHL 0.9% 1000 ML BAG XX ONE (11:00)
[2020-02-11 13:33] VITALS: BP 155/73
[2020-02-11 16:36] VITALS: BP 119/75
[2020-02-11] MEDS: SEVELAMER 800 MG TAB PO SCH (17:34)
--- NOTE | 2020-02-11 19:40 | NUR ---
opening shift note Assumed care of patient who is A&O x4. Currently receiving nebulizer treatment. No c/o SOB or pain. PIV in right AC is intact and patent. Flushed with 10ml NS. AV fistula in Left upper arm. Bruit and thrill present. Bed is in low locked position with side rails up x2. Call light is within reach and patient encouraged to call for assistance when needed. Will continue to monitor for changes PRN.
[2020-02-11 20:05] VITALS: BP 119/75
[2020-02-11 22:00] VITALS: BP 122/48
[2020-02-11] MEDS: ATORVASTATIN 20 MG TAB PO SCH (22:04)
[2020-02-12 05:00] VITALS: BP 156/60
[2020-02-12] MEDS: ENOXAPARIN SOD 80 MG/0.8ML SYRINGE SC SCH (05:16)
--- NOTE | 2020-02-12 05:17 | NUR ---
Patient awoke with mild edema to right periorbital area. Denies pain or itching. States that nebulizer mask was rubbing near the inner canthus of his right eye and shortly after removal he felt the area becoming edematous. Cold pack provided and patient instructed to hold against the area to reduce inflammation. Will continue to monitor for improvement.
[2020-02-12 05:22] LABS: Hematocrit 26.5 % (41.0-53.0); Mean Corpuscular Hemoglobin 30.7 pg (28.0-32.0); Mean Corpuscular Hgb Conc. 34.1 g/dL (32.0-36.0); Platelet Count (auto) 264 10^3/uL (140-450); Red Blood Cells 2.95 10^6/uL (4.5-5.90); Red Cell Distribution Width 14.2 % (11.8-14.3); White Blood Cell 7.8 10^3/uL (4.4-10.8)
[2020-02-12 05:44] LABS: Potassium 4.7 mmol/L (3.5-5.1)
[2020-02-12 05:45] LABS: Band Neutrophils % (manual) 0; Basophils % (manual) 0 (0.0-2.0); Blast Cells 0; Metamyelocytes % 0; Myelocytes % 0; Promyelocytes % 0; Reactive Lymphocytes 0
[2020-02-12 05:50] LABS: BUN/Creatinine Ratio 5.3; Calcium 9.1 mg/dL (8.5-10.1)
[2020-02-12] MEDS: IPRATROPIUM BROM 0.5 MG/2.5ML INH SOL NEB SCH ×3 (06:25→18:45)
[2020-02-12] MEDS: ALBUTEROL SULF 2.5 MG/0.5ML(0.5%) NEB SOLN NEB SCH ×3 (06:25→18:45)
[2020-02-12] MEDS: ACETYLCYSTEINE 10 %(100MG/ML) SOL 4ML NEB SCH ×3 (06:26→18:46)
--- NOTE | 2020-02-12 07:14 | NUR ---
Opening Shift Note Assumed care of patient, awake and alert. No S/S of distress/SOB or pain. Instructed on POC and to call for assist PRN, will continue to monitor for changes Q1hr and PRN. Bed is set in lowest locked position with side rails up x 2 for safety and call light is within reach.
[2020-02-12 07:23] LABS: Eosinophils % (manual) 16 (0-7); Lymphocytes % (manual) 23 (10.0-50.0); Monocytes % (manual) 9 (0-12)
[2020-02-12] MEDS: SEVELAMER 800 MG TAB PO SCH ×3 (08:16→18:09)
[2020-02-12 09:00] VITALS: BP 128/60
--- NOTE | 2020-02-12 09:14 | NUR ---
Per Sandoval at [facility] Life Vest, patient has emergency medi-feli only and does not qualify for the life vest-he is looking into other ways to see if patient can still get the vest.
--- NOTE | 2020-02-12 09:31 | NUR ---
MD at bedside Dr. Mata, updated patient on POC. Patient verbalized understanding. MD aware of right periorbital edema, new orders received and read back for verification. Will proceed to carry out orders.
[2020-02-12] MEDS: SACUBITRIL-VALSARTAN 24mg/26mg TAB PO SCH ×2 (09:44→22:16)
[2020-02-12] MEDS: ASPirin 81 mg TAB PO SCH (09:45)
[2020-02-12] MEDS: METOPROLOL TARTRATE 25 MG TAB PO SCH ×2 (09:45→22:15)
[2020-02-12] MEDS ORDERED: ARTIFICIAL TEARS 15ml EACHEYE PRN (09:45)
[2020-02-12] MEDS: DOCUSATE SOD 100 MG CAP PO SCH (09:46)
[2020-02-12 13:00] VITALS: BP 141/69
--- NOTE | 2020-02-12 13:11 | NUR ---
Palak Operations Accountant at bedside Patient's family at bedside at this time.
--- NOTE | 2020-02-12 15:18 | NUR ---
re-assessment Per consult does not have PCP or explosive operator supervisor. Adenike Ivory to see patient for PCP. Per Eliseo De Souza patients [facility] is now active. Addendum: 02/13/20 at 1719 by Adenike Perales Amended: Links added.
[2020-02-12 17:00] VITALS: BP 145/80
--- NOTE | 2020-02-12 19:15 | NUR ---
OPENING NOTE- NOC SHIFT PATIENT IS IN BED, BED IS LOCKED AT LOWEST POSITION, BED RAILS UP X2 AND HEAD OF BED IS UP >30 DEGREES. BEDSIDE TABLE WITHIN REACH, CALL LIGHT WITHIN REACH. PATIENT IS RESTING EYES CLOSED. BREATHS ARE EVEN AND UNLABORED. WILL CONTINUE TO MONITOR Q1H AND PRN.
[2020-02-12 22:00] VITALS: BP 126/62
[2020-02-12] MEDS: ATORVASTATIN 20 MG TAB PO SCH (22:16)
--- NOTE | 2020-02-12 22:50 | NUR ---
PATIENT COMPLAINS OF NAUSEA. WILL ADMINISTER NAUSEA MEDICATION PER eMAR MD ORDERS.
[2020-02-12] MEDS: ONDANSETRON HCL 4 MG/2 ML VIAL IV PRN (22:52)
--- NOTE | 2020-02-12 23:56 | NUR ---
ROUNDS PATIENT IS SLEEPING BREATHING EVENLY. NO S/SX OF DISTRESS, SOB OR PAIN.
[2020-02-13 05:00] VITALS: BP 130/67
[2020-02-13 05:45] LABS: Hemoglobin 9.4 g/dL (13.5-17.5); Mean Corpuscular Hemoglobin 31.2 pg (28.0-32.0); Mean Corpuscular Hgb Conc. 34.9 g/dL (32.0-36.0); Mean Corpuscular Volume 89.3 fL (80.0-100.0); Platelet Count (auto) 292 10^3/uL (140-450); Red Blood Cells 3.03 10^6/uL (4.5-5.90); White Blood Cell 9.6 10^3/uL (4.4-10.8)
[2020-02-13] MEDS: ACETYLCYSTEINE 10 %(100MG/ML) SOL 4ML NEB SCH ×3 (05:55→18:17)
[2020-02-13] MEDS: IPRATROPIUM BROM 0.5 MG/2.5ML INH SOL NEB SCH ×3 (05:56→18:17)
[2020-02-13] MEDS: ALBUTEROL SULF 2.5 MG/0.5ML(0.5%) NEB SOLN NEB SCH ×3 (05:56→18:17)
[2020-02-13] MEDS: ENOXAPARIN SOD 80 MG/0.8ML SYRINGE SC SCH (06:04)
[2020-02-13 06:10] LABS: Potassium 4.9 mmol/L (3.5-5.1)
[2020-02-13 06:30] LABS: Calcium 9.2 mg/dL (8.5-10.1)
[2020-02-13 06:41] LABS: BUN/Creatinine Ratio 5.5
--- NOTE | 2020-02-13 06:58 | NUR ---
LORENA 11.3 PAGED HOSPITALIST PATIENT IS DIALYSIS PATIENT. HOSPITALIST PATIENT. NO INSURANCE. LAST DIALYSIS 02/09 ON TELE FLOOR. DIALYSIS DAYS , , SAT.
[2020-02-13 07:00] LABS: Band Neutrophils % (manual) 0; Basophils % (manual) 0 (0.0-2.0); Blast Cells 0; Metamyelocytes % 0; Myelocytes % 0; Promyelocytes % 0; Reactive Lymphocytes 0
--- NOTE | 2020-02-13 07:23 | NUR ---
CLOSING NOTE- NOC SHIFT ENDORSED PATIENT CARE TO DAY SHIFT NURSE KELSEY RIOS. PATIENT IS COMFORTABLE IN BED, NO S/SX OF DISTRESS, SOB OR PAIN.
[2020-02-13 07:40] LABS: Eosinophils % (manual) 18 (0-7); Lymphocytes % (manual) 15 (10.0-50.0); Monocytes % (manual) 7 (0-12)
[2020-02-13] MEDS: SEVELAMER 800 MG TAB PO SCH ×3 (07:42→18:00)
[2020-02-13 08:54] VITALS: BP 106/52
--- NOTE | 2020-02-13 09:25 | NUR ---
MD at bedside Dr. Mata, updated pt on POC. MD aware of patient's creatinine lab value of 11.30.
[2020-02-13] MEDS: DOCUSATE SOD 100 MG CAP PO SCH (10:00)
[2020-02-13] MEDS: NEOMYCIN-POLYM-GRAM OPTH(EYE) SOL 10ML EACHEYE SCH ×4 (10:33→21:40)
[2020-02-13] MEDS: SACUBITRIL-VALSARTAN 24mg/26mg TAB PO SCH ×2 (10:33→21:41)
[2020-02-13] MEDS: ASPirin 81 mg TAB PO SCH (10:33)
[2020-02-13] MEDS: levoFLOXacin 500MG 100 ML IV SCH (10:33)
[2020-02-13] MEDS: METOPROLOL TARTRATE 25 MG TAB PO SCH ×2 (10:34→21:40)
[2020-02-13 12:14] VITALS: BP 135/67
[2020-02-13 16:17] VITALS: BP 142/74
[2020-02-13] MEDS ORDERED: SODIUM CHL 0.9% 1000 ML BAG XX ONE (18:30)
--- NOTE | 2020-02-13 19:05 | NUR ---
OPENING NOTE- NOC SHIFT PATIENT IS ALERT AND ORIENTED X4 AND ANSWERS IN COMPLETE SENTENCES. PATIENT IS IN BED. NO S/SX OF DISTRESS, SOB OR PAIN. WILL CONTINUE TO MONITOR Q1H AND PRN.
--- NOTE | 2020-02-13 19:08 | NUR ---
Care endorsed to NOC RN
[2020-02-13] MEDS ORDERED: EPOETIN ALFA 10,000 UNIT/1 ML VIAL SC ONE (21:00)
[2020-02-13] MEDS: ATORVASTATIN 20 MG TAB PO SCH (21:40)
[2020-02-13 21:56] VITALS: BP 109/51
--- NOTE | 2020-02-13 22:15 | NUR ---
[facility] SITE DRESSING REMOVED DRESSING AT [facility] PER MD ORDERS. LOWER ACCESS HAD PIN POINT FRESH BLOOD, APPLIED PRESSURE AND REDRESSED WITH PRESSURE ADDED TO SITE. WILL RE ASSESS.
[2020-02-14] MEDS: NEOMYCIN-POLYM-GRAM OPTH(EYE) SOL 10ML EACHEYE SCH ×6 (02:22→22:00)
--- NOTE | 2020-02-14 02:23 | NUR ---
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 NOTED REDUCED EDEMA SIGNIFICANTLY TO RIGHT EYE. PATIENT STATES HE CAN FEEL HIS EYE "MORE OPEN".
[2020-02-14 05:45] VITALS: BP 128/69
[2020-02-14] MEDS: ENOXAPARIN SOD 80 MG/0.8ML SYRINGE SC SCH (05:50)
--- NOTE | 2020-02-14 07:07 | NUR ---
CLOSING NOTE- NOC SHIFT PATIENT IS COMFORTABLE IN BED WATCHING TELEVISION. NO S/SX OF DISTRESS OR SOB. PATIENT DENIES PAIN AT THIS TIME. [facility] SITE DRY AND CLEAN; NO BLEEDING. WILL ENDORSE PATIENT CARE TO DAY SHIFT RN.
--- NOTE | 2020-02-14 07:08 | NUR ---
OPENING SHIFT NOTE Assumed care of patient from night shift supervisor RN. Patient is alert and oriented x4, no signs of distress noted. Patient was updated on the plan of care and verbalized understanding. Bed is locked, in the lowest position, side rails up x2 and call light is in reach. Patient was encouraged to call for assistance as needed.
[2020-02-14 07:09] LABS: Hematocrit 30.7 % (41.0-53.0); Hemoglobin 10.4 g/dL (13.5-17.5); Mean Corpuscular Hemoglobin 30.3 pg (28.0-32.0); Mean Corpuscular Hgb Conc. 33.9 g/dL (32.0-36.0); Mean Corpuscular Volume 89.4 fL (80.0-100.0); Platelet Count (auto) 336 10^3/uL (140-450); Red Blood Cells 3.43 10^6/uL (4.5-5.90); Red Cell Distribution Width 14.2 % (11.8-14.3); White Blood Cell 9.2 10^3/uL (4.4-10.8)
[2020-02-14 07:27] LABS: Basophils % (manual) 0 (0.0-2.0); Blast Cells 0; Metamyelocytes % 0; Myelocytes % 0; Potassium 4.7 mmol/L (3.5-5.1); Promyelocytes % 0; Reactive Lymphocytes 0
[2020-02-14 07:33] LABS: BUN/Creatinine Ratio 4.3; Calcium 9.2 mg/dL (8.5-10.1)
[2020-02-14] MEDS: SEVELAMER 800 MG TAB PO SCH ×3 (08:05→18:17)
[2020-02-14] MEDS: ALBUTEROL SULF 2.5 MG/0.5ML(0.5%) NEB SOLN NEB SCH ×3 (09:07→18:59)
[2020-02-14] MEDS: IPRATROPIUM BROM 0.5 MG/2.5ML INH SOL NEB SCH ×3 (09:07→18:59)
[2020-02-14] MEDS: ACETYLCYSTEINE 10 %(100MG/ML) SOL 4ML NEB SCH ×3 (09:08→18:59)
[2020-02-14 09:12] VITALS: BP 98/44
[2020-02-14 09:19] LABS: Band Neutrophils % (manual) 1; Lymphocytes % (manual) 10 (10.0-50.0); Monocytes % (manual) 7 (0-12)
[2020-02-14 09:20] LABS: Eosinophils % (manual) 16 (0-7)
[2020-02-14] MEDS: SACUBITRIL-VALSARTAN 24mg/26mg TAB PO SCH (10:21)
[2020-02-14] MEDS: DOCUSATE SOD 100 MG CAP PO SCH (10:21)
[2020-02-14] MEDS: METOPROLOL TARTRATE 25 MG TAB PO SCH (10:22)
[2020-02-14] MEDS: ASPirin 81 mg TAB PO SCH (10:22)
--- NOTE | 2020-02-14 11:23 | NUR ---
DR PEACE AT BEDSIDE Updated on patient status and plan of care, patient verbalized understanding, no new orders received.
[2020-02-14] MEDS ORDERED: ENALAPRIL MALEATE 2.5 MG TAB PO ONE (11:30)
--- NOTE | 2020-02-14 11:50 | NUR ---
Nutrition Follow-up Notes Wt.: 74.7 kg today Pt currently on Renal Standard diet with good appetite aeb avg 80% PO intake. Est energy needs: 7092-1981 kcals (23-25 kcal/kgBW) d/t pt on HD. Est protein needs: 86-94 gms/day (1.1-1.2 gm/kgBW) d/t pt on HD. Will continue to monitor pertinent labs and reassess nutrient needs prn Labs 02/13: Na 132 L, Cl 97 L, BUN 33 H, Cr 7.75 H. 02/09: albumin 2.6 L Skin: Topher scale 19, low risk, skin intact per radiology scheduler. GI: Pt had BM02/14/20 per radiology scheduler. PES: 1) Obesity r/t energy intake in excess of energy needs aeb 156% IBW and BMI of 31.5 kg/m2 2) Altered nutrition related lab values r/t current/chronic medical aeb hyponat, hyperkal, hypochlor, elev RFTs, hypoalb, low GFR Will continue to monitor PO intake, skin status, pertinent labs and weight trend. F/u in 3 to 5 days. Recommendations: 1) Continue to closely monitor pt PO intake to meet a goal of at least 75% of meals eaten. 2) Refer pt to RD/CDE for nutrition education upon D/C. 3) Continue current plan of care.
[2020-02-14 12:37] VITALS: BP 133/71
--- NOTE | 2020-02-14 14:21 | NUR ---
CALLED JOSE MANUEL DAWSON regarding patient Zoll vest, stated she is taking care of it.
[2020-02-14] MEDS ORDERED: CAR3125T PO (14:42)
[2020-02-14] MEDS ORDERED: ENAL2.5T PO (14:42)
--- NOTE | 2020-02-14 15:16 | NUR ---
I called Sandoval at [facility]-he said he has in his system that patient only has emergency medi-feli. I called Eliseo-he confirmed that patient's medi-feli is only for dialysis.
--- NOTE | 2020-02-14 16:13 | NUR ---
SPOKE TO JOSE MANUEL DAWSON about patient Palak guzman, patient needs still needs letter of support, proof of residence and to send money order.
--- NOTE | 2020-02-14 16:19 | NUR ---
UPDATED PATIENT ON ZOLL VEST Patient stated that he already sent the letter of support and proof of residence. He is stating that he needs who to send the money order to.
--- NOTE | 2020-02-14 16:41 | NUR ---
SPOKE TO GLENYS AT [facility] patient is to bring in the papers and we can fax the letter of support, proof of income, and money order to .
--- NOTE | 2020-02-14 16:48 | NUR ---
PATIENT INFORMED TO HAVE FAMILY BRING IN PAPERWORK Patient states he will call someone and have them bring it in.
[2020-02-14 16:55] VITALS: BP 138/68
--- NOTE | 2020-02-14 17:05 | NUR ---
SPOKE WITH PATIENT'S GRANDSON after verifying password. Explained that he needed to bring in the letter of support, proof of residency and money order. Son stated he would be by in an hour to drop it off.
--- NOTE | 2020-02-14 18:40 | NUR ---
INFO FAXED TO [employer] at , papers in chart.
[2020-02-14 19:42] VITALS: BP 137/68
[2020-02-14 21:56] VITALS: BP 138/75
[2020-02-14] MEDS: ATORVASTATIN 20 MG TAB PO SCH (22:00)
[2020-02-14] MEDS: ENALAPRIL MALEATE 2.5 MG TAB PO SCH (22:00)
[2020-02-14] MEDS: CARVEDILOL 3.125 MG TAB PO SCH (22:00)
[2020-02-15] MEDS: NEOMYCIN-POLYM-GRAM OPTH(EYE) SOL 10ML EACHEYE SCH ×5 (02:00→18:07)
[2020-02-15 05:33] VITALS: BP 113/51
[2020-02-15] MEDS: IPRATROPIUM BROM 0.5 MG/2.5ML INH SOL NEB SCH ×3 (06:50→20:18)
[2020-02-15] MEDS: ALBUTEROL SULF 2.5 MG/0.5ML(0.5%) NEB SOLN NEB SCH ×3 (06:50→20:19)
[2020-02-15] MEDS: ACETYLCYSTEINE 10 %(100MG/ML) SOL 4ML NEB SCH ×3 (06:51→20:18)
--- NOTE | 2020-02-15 07:40 | NUR ---
Opening Shift Note Assumed care of patient, awake and alert. No S/S of distress/SOB or pain. Updated on POC and instructed to call for assistance as needed, patient verbalized understanding. Bed locked in lowest position, side rails up x2, call light within reach. Will continue to monitor for changes Q1hr and PRN.
--- NOTE | 2020-02-15 07:50 | NUR ---
Dialysis nurse at bedside.
[2020-02-15] MEDS: SEVELAMER 800 MG TAB PO SCH ×3 (08:00→18:07)
[2020-02-15 08:53] VITALS: BP 125/59
[2020-02-15] MEDS: ASPirin 81 mg TAB PO SCH (09:38)
[2020-02-15] MEDS: DOCUSATE SOD 100 MG CAP PO SCH (09:38)
[2020-02-15] MEDS: CARVEDILOL 3.125 MG TAB PO SCH (09:38)
[2020-02-15] MEDS: ENALAPRIL MALEATE 2.5 MG TAB PO SCH (09:40)
--- NOTE | 2020-02-15 11:33 | NUR ---
Dialysis completed. 3L removed, patient tolerated well. Vitals stable at this time.
[2020-02-15 12:42] VITALS: BP 102/54
--- NOTE | 2020-02-15 16:40 | NUR ---
I spoke with Sandoval at [facility], patient should be fitted this evening with the life vest.
[2020-02-15 16:49] VITALS: BP 129/57
--- NOTE | 2020-02-15 18:40 | NUR ---
RT NOTE PT WAS SEEN BY RT FOR [facility] TX,. PT IS EATING EVENING MEAL. RT WILL RETURN.
[2020-02-15 19:51] VITALS: BP 128/72
--- NOTE | 2020-02-15 20:15 | NUR ---
RT NOTE PT WAS SEEN BY RT FOR [facility] TX. PT IS SITTING AT BEDSIDE, DRESSED AND AWAITING HIS DISCHARGE PAPERWORK. PT STATES NO TREATMENT NEEDED BEFORE HE LEAVES. BLANCA HEAHT NOTIFIED. CONT ORDERED
--- NOTE | 2020-02-15 20:40 | NUR ---
Zoll Vest delivered at bedside. Per Zoll Vest automotive sales representative, instructions were given
--- NOTE | 2020-02-15 21:15 | NUR ---
Discharge instructions given as ordered. Encourage to follow up with PMD as instructed. All questions and concerns addressed. All instructions translated by CORPORATE CONTROLLER February. Patient verbalized understanding. Medication reconciliation form completed and copy given to patient. IV removed with catheter intact, pressure dressing applied. Telemetry unit returned to ICU. Patient taken to vehicle via wheelchair with all personal belongings, accompanied by staff. Son waiting in ER lobby to merchandise pickup/receiving associate patient. Instructions given to son as well translated by same CORPORATE CONTROLLER. No distress noted at time of departure.
[2020-02-15 22:00] VITALS: BP 128/72
== END 2020-02-15 21:15 | disposition home or self-care (01) | DRG 192 ==
LOC: ER 22:56 → TELE 22:57 → DOU IN ICU 02-05 10:45 → TELE-CENTR 02-08 16:48
PROVIDERS: ADMIT Hospitalist; ATTEND Internal Medicine
PROC: 5A1D70Z Performance of Urinary Filtration, Intermittent, Less than 6 Hours Per Day (ICD-10-PCS; 2020-02-06)
PROC: 5A1D70Z Performance of Urinary Filtration, Intermittent, Less than 6 Hours Per Day (ICD-10-PCS; 2020-02-08)
PROC: 4A023N7 Measurement of Cardiac Sampling and Pressure, Left Heart, Percutaneous Approach (ICD-10-PCS; principal; 2020-02-09)
PROC: B2111ZZ Fluoroscopy of Multiple Coronary Arteries using Low Osmolar Contrast (ICD-10-PCS; 2020-02-09)
PROC: B2151ZZ Fluoroscopy of Left Heart using Low Osmolar Contrast (ICD-10-PCS; 2020-02-09)
PROC: 5A1D70Z Performance of Urinary Filtration, Intermittent, Less than 6 Hours Per Day (ICD-10-PCS; 2020-02-10)
PROC: 5A1D70Z Performance of Urinary Filtration, Intermittent, Less than 6 Hours Per Day (ICD-10-PCS; 2020-02-13)
PROC: 5A1D70Z Performance of Urinary Filtration, Intermittent, Less than 6 Hours Per Day (ICD-10-PCS; 2020-02-15)
DX: I13.2 Hypertensive heart and chronic kidney disease with heart failure and with stage 5 chronic kidney disease, or end stage renal disease (principal); J96.01 Acute respiratory failure with hypoxia; I21.A1 Myocardial infarction type 2; J18.9 Pneumonia, unspecified organism; E44.0 Moderate protein-calorie malnutrition; E11.22 Type 2 diabetes mellitus with diabetic chronic kidney disease; N18.6 End stage renal disease; I27.20 Pulmonary hypertension, unspecified; E11.40 Type 2 diabetes mellitus with diabetic neuropathy, unspecified; E11.65 Type 2 diabetes mellitus with hyperglycemia; E87.5 Hyperkalemia; I42.9 Cardiomyopathy, unspecified; I50.43 Acute on chronic combined systolic (congestive) and diastolic (congestive) heart failure; E87.70 Fluid overload, unspecified; E87.1 Hypo-osmolality and hyponatremia; D63.8 Anemia in other chronic diseases classified elsewhere; J98.11 Atelectasis; E66.9 Obesity, unspecified; J40 Bronchitis, not specified as acute or chronic; E78.5 Hyperlipidemia, unspecified; I25.118 Atherosclerotic heart disease of native coronary artery with other forms of angina pectoris; E21.3 Hyperparathyroidism, unspecified; Z99.2 Dependence on renal dialysis; Z79.899 Other long term (current) drug therapy; Z68.31 Body mass index [BMI] 31.0-31.9, adult
CPT/HCPCS: 36415; 36600; 71045; 71046; 80048; 80053; 80061; 80202; 81001; 82805; 82962; 83036; 83605; 83880; 84443; 84484; 85007; 85025; 85027; 85610; 85730; 86141; 86850; 86900; 86901; 87040; 87070; 87081; 87205; 87804; 90935; 93005; 93306; 94640; 94660; 96365; 96367; 96375; 97163; 99152; G0378; J0610; J0885; J1642; J1815; J1956; J2250; J2405; J2543; Q9956; Q9967

== ENCOUNTER 2020-03-08 11:29 | Inpatient (IN) | payer MEDICAID ==
[~2020-03-08] VITALS: Ht 188 cm; Wt 76.7 kg
[~2020-03-08 11:29] MED LIST: CAR3125T PO; ENAL2.5T PO; ESOM40CA83 PO; NEPVITT PO; SEVE800T PO
[2020-03-08 12:21] LABS: Basophils # (auto) 0 10 ^3/uL (0-0.2); Basophils % (auto) 0.4 % (0.0-2.0); Eosinophils # (auto) 0.1 10 ^3/uL (0-0.8); Eosinophils % (auto) 1.6 % (0.0-7.0); Hematocrit 31.8 % (41.0-53.0); Hemoglobin 10.7 g/dL (13.5-17.5); Lymphocytes % (auto) 11.8 % (10.0-50.0); Mean Corpuscular Hemoglobin 30.4 pg (28.0-32.0); Mean Corpuscular Hgb Conc. 33.6 g/dL (32.0-36.0); Mean Corpuscular Volume 90.5 fL (80.0-100.0); Monocytes # (auto) 0.8 10 ^3/uL (0-1.3); Monocytes % (auto) 9.5 % (0.0-12.0); Neutrophils # (auto) 6.4 10 ^3/uL (1.6-8.6); Neutrophils % (auto) 76.7 % (37.0-80.0); Platelet Count (auto) 308 10^3/uL (140-450); Red Blood Cells 3.51 10^6/uL (4.5-5.90); Red Cell Distribution Width 15.5 % (11.8-14.3); White Blood Cell 8.3 10^3/uL (4.4-10.8)
[2020-03-08 12:26] LABS: Albumin 2.4 g/dL (3.4-5.0); Calcium 8.8 mg/dL (8.5-10.1); INR 1.14 (0.9-1.15); Partial Thromboplastin Time 34.1 sec (23.64-32.05); Potassium 3.1 mmol/L (3.5-5.1)
[2020-03-08 12:30] LABS: BUN/Creatinine Ratio 3.2; Bilirubin, Total 0.3 mg/dL (0.2-1.0); Total Protein 6.3 g/dL (6.4-8.2)
[2020-03-08] MEDS ORDERED: PIPERACILLIN-TAZOB 3.375GM 100 ML IV ONE (15:15)
[2020-03-08] MEDS ORDERED: cefTRIAXone 1GM/50ML D5W 50 ML IV ONE (15:30)
[2020-03-08] MEDS ORDERED: LORazepam 2MG/ML-1ML VIAL IV PRN (15:30)
[2020-03-08] MEDS ORDERED: MORPHINE SULF INJ 2 MG/ML SYRINGE 1ML IV PRN ×2 (15:30)
[2020-03-08] MEDS ORDERED: PROMETHAZINE HCL 25 MG/ML 1ML IV PRN (15:30)
--- NOTE | 2020-03-08 16:34 | NUR ---
Telemetry admit from ER LALITO RODRIGUEZ admitted to Telemetry unit after SBAR received. Patient oriented to Austin Sanz, primary RN, unit, room, bed, and unit policies regarding patient care and visiting hours. Patient now on continuous telemetry monitoring, tele box # 30 and telemetry reading on arrival to unit is sinus rhythm. Patient weighed by bedscale and encouraged to call if they need something. All questions and concerns addressed, patient verbalized understanding.
[2020-03-08 17:00] VITALS: BP 134/74
[2020-03-08] MEDS: SEVELAMER 800 MG TAB PO SCH (17:53)
[2020-03-08] MEDS: VANCOMYCIN HCL 125MG/5ML ORAL SOL PO SCH ×2 (17:53→22:01)
[2020-03-08 18:26] VITALS: BP 134/74
--- NOTE | 2020-03-08 19:00 | NUR ---
Opening Shift Note Assumed care of patient, awake and alert. No S/S of distress/SOB, patient complains of pain in his lower abdomen, stating it is a 4/10, Tylenol to be given. Patient is Syriac speaking. Needed stool sample from patient, will let patient know to leave sample in hat to be collected. Instructed on POC and to call for assist PRN, will continue to monitor for changes Q1hr and PRN. Patient in lowest possible position with call light within reach.
[2020-03-08 20:00] VITALS: BP 147/66
--- NOTE | 2020-03-08 21:30 | NUR ---
Stool sample collected. Stool bacterial sample to be collected per Dr. Vaz. Sample collected and sent to lab.
[2020-03-08 22:00] VITALS: BP 147/66
[2020-03-08] MEDS ORDERED: FAMOTIDINE 20 MG TAB PO SCH (22:00)
[2020-03-08] MEDS: metroNIDAZOLE 500MG/100ML 100 ML IV SCH (22:00)
[2020-03-08] MEDS: ENALAPRIL MALEATE 2.5 MG TAB PO SCH (22:01)
[2020-03-08] MEDS: CARVEDILOL 3.125 MG TAB PO SCH (22:01)
[2020-03-08] MEDS: ACETAMINOPHEN 500 MG TAB PO PRN (22:02)
[2020-03-09 05:00] VITALS: BP 110/57
[2020-03-09] MEDS: metroNIDAZOLE 500MG/100ML 100 ML IV SCH ×3 (05:32→22:51)
[2020-03-09] MEDS: VANCOMYCIN HCL 125MG/5ML ORAL SOL PO SCH ×4 (05:33→22:51)
[2020-03-09 06:02] LABS: Basophils # (auto) 0 10 ^3/uL (0-0.2); Basophils % (auto) 0.2 % (0.0-2.0); Eosinophils # (auto) 0.2 10 ^3/uL (0-0.8); Eosinophils % (auto) 1.6 % (0.0-7.0); Hematocrit 28.9 % (41.0-53.0); Lymphocytes % (auto) 10.3 % (10.0-50.0); Mean Corpuscular Hgb Conc. 34.4 g/dL (32.0-36.0); Mean Corpuscular Volume 90.2 fL (80.0-100.0); Monocytes # (auto) 1.1 10 ^3/uL (0-1.3); Monocytes % (auto) 11.2 % (0.0-12.0); Neutrophils # (auto) 7.2 10 ^3/uL (1.6-8.6); Neutrophils % (auto) 76.7 % (37.0-80.0); Platelet Count (auto) 298 10^3/uL (140-450); Red Blood Cells 3.21 10^6/uL (4.5-5.90); Red Cell Distribution Width 15.1 % (11.8-14.3); White Blood Cell 9.4 10^3/uL (4.4-10.8)
[2020-03-09 06:18] LABS: Potassium 3.4 mmol/L (3.5-5.1)
[2020-03-09 06:25] LABS: Albumin 2.1 g/dL (3.4-5.0); BUN/Creatinine Ratio 3.2; Bilirubin, Total 0.4 mg/dL (0.2-1.0); Calcium 8.2 mg/dL (8.5-10.1); Total Protein 5.4 g/dL (6.4-8.2)
--- NOTE | 2020-03-09 07:15 | NUR ---
Opening shift note Assumed care, patiently currently sleeping on room air. No s/s of distress or pain noted at this time. Bed in low position, locked, siderails x2 up, and call light within reach. Will continue care.
[2020-03-09 09:02] VITALS: BP 105/39
[2020-03-09] MEDS: SEVELAMER 800 MG TAB PO SCH ×3 (09:26→18:22)
[2020-03-09] MEDS: PANTOPRAZOLE 40 MG TAB PO SCH (09:26)
[2020-03-09] MEDS: cefTRIAXone 1GM/50ML D5W 50 ML IV SCH (09:26)
[2020-03-09] MEDS: B-COMPLEX W/ C & FOLIC ACID(NEPHROVITE TAB) PO SCH (09:27)
[2020-03-09] MEDS: CARVEDILOL 3.125 MG TAB PO SCH ×2 (09:34→22:52)
[2020-03-09] MEDS: ENALAPRIL MALEATE 2.5 MG TAB PO SCH ×2 (09:35→22:52)
--- NOTE | 2020-03-09 10:09 | NUR ---
MD call Received call from Dr. Alcantara regarding patient unable to receive dialysis today do to AURE fistula being clotted. Per Dr. Alcantara patient needs to get a temporary dialysis access. Dr Mata paged regarding temporary dialysis access needed, awaiting call back.
--- NOTE | 2020-03-09 11:30 | NUR ---
Note Per Dr. Mata, Dr. Kamara is to perform Connor cath on patient today. Supplies ready at bedside.
[2020-03-09 12:36] VITALS: BP 127/58
[2020-03-09] MEDS ORDERED: POTASSIUM CHLORIDE 8 MEQ TAB PO ONE (13:00)
[2020-03-09 16:49] VITALS: BP 115/54
--- NOTE | 2020-03-09 17:30 | NUR ---
Procedure at bedside Dr. Kamara performing Connor cath procedure at bedside. Access not obtained, per Dr Kamara he will try to obtain US guided access on 03/10/2020 at 0600. Supplies for procedure at bedside.
[2020-03-09] MEDS: Ensure Enlive Strawberry 8oz Bottle PO SCH (18:22)
--- NOTE | 2020-03-09 19:25 | NUR ---
Opening Shift Note Assumed care of patient, awake and alert. No S/S of distress/SOB or pain. Safety measures in place bed in lowest position, side rails x2 up, and call light within reach. Instructed on POC and to call for assist PRN, will continue to monitor for changes Q1hr and PRN.
[2020-03-09 22:00] VITALS: BP 145/59
--- NOTE | 2020-03-10 05:41 | NUR ---
Mary Jo from [facility] called inquiring if the patient had his Connor Catheter placed on 03/09/20. Informed Mary Jo access was not obtained. She requested a call at [phone] to inform her if access was obtained today or if she should reschedule. Will endorse to art RIOS.
[2020-03-10] MEDS: metroNIDAZOLE 500MG/100ML 100 ML IV SCH ×3 (05:56→22:56)
[2020-03-10] MEDS: VANCOMYCIN HCL 125MG/5ML ORAL SOL PO SCH ×4 (05:56→22:57)
[2020-03-10 06:00] VITALS: BP 131/58
[2020-03-10] MEDS ORDERED: HEPARIN 1,000 UNITS/ml 1ML VIAL ONE (06:38)
--- NOTE | 2020-03-10 06:46 | NUR ---
DR. Kamara at the bedside with patient placing Connor Catheter. Ultrasound is at the bedside. Orders received. Will continue to monitor.
--- NOTE | 2020-03-10 06:48 | NUR ---
Called Mary Jo with [facility] requesting call back to come and administer dialysis for the patient. Will endorse to art RIOS.
--- NOTE | 2020-03-10 07:42 | NUR ---
DR. FARIAS PLACED DIALYSIS CATHETER TO RIGHT GROIN. CATHETER READY FOR USE. DIALYSIS CAN COMMENCE TODAY. WILL ENDORSE TO GRACE RIOS.
[2020-03-10] MEDS: PANTOPRAZOLE 40 MG TAB PO SCH (08:16)
[2020-03-10] MEDS: SEVELAMER 800 MG TAB PO SCH ×3 (08:17→17:50)
[2020-03-10] MEDS: CARVEDILOL 3.125 MG TAB PO SCH ×2 (08:17→22:57)
[2020-03-10] MEDS: cefTRIAXone 1GM/50ML D5W 50 ML IV SCH (08:17)
[2020-03-10] MEDS: B-COMPLEX W/ C & FOLIC ACID(NEPHROVITE TAB) PO SCH (08:17)
[2020-03-10] MEDS: ENALAPRIL MALEATE 2.5 MG TAB PO SCH ×2 (08:18→22:58)
[2020-03-10] MEDS: Ensure Enlive Strawberry 8oz Bottle PO SCH ×3 (08:18→17:50)
[2020-03-10 09:34] VITALS: BP 122/55
[2020-03-10 10:14] LABS: Basophils # (auto) 0 10 ^3/uL (0-0.2); Basophils % (auto) 0.4 % (0.0-2.0); Eosinophils # (auto) 0.2 10 ^3/uL (0-0.8); Eosinophils % (auto) 2.3 % (0.0-7.0); Hematocrit 27.8 % (41.0-53.0); Hemoglobin 9.5 g/dL (13.5-17.5); Lymphocytes % (auto) 12.7 % (10.0-50.0); Mean Corpuscular Hemoglobin 31.1 pg (28.0-32.0); Mean Corpuscular Hgb Conc. 34.1 g/dL (32.0-36.0); Mean Corpuscular Volume 91.2 fL (80.0-100.0); Monocytes # (auto) 0.7 10 ^3/uL (0-1.3); Monocytes % (auto) 9.1 % (0.0-12.0); Neutrophils % (auto) 75.5 % (37.0-80.0); Platelet Count (auto) 298 10^3/uL (140-450); Red Blood Cells 3.05 10^6/uL (4.5-5.90); Red Cell Distribution Width 15.3 % (11.8-14.3); White Blood Cell 7.9 10^3/uL (4.4-10.8)
[2020-03-10 10:28] LABS: BUN/Creatinine Ratio 3.1; Calcium 8.1 mg/dL (8.5-10.1); Potassium 3.1 mmol/L (3.5-5.1)
[2020-03-10] MEDS ORDERED: SODIUM CHL 0.9% 1000 ML BAG XX ONE (12:15)
[2020-03-10] MEDS ORDERED: POTASSIUM CHL 10 Meq TABLET PO ONE (12:15)
[2020-03-10 13:00] VITALS: BP 198/82
--- NOTE | 2020-03-10 13:15 | NUR ---
Dialysis completed Dialysis completed 1.62 L removed. VS- BP 79/89, HR 56
--- NOTE | 2020-03-10 13:37 | NUR ---
NUTRITION ASSESSMENT NOTES Please refer to link notes of nutrition screen form filed under the intervention section of the plan of care for further details. Est. Energy Needs: 5959-7204 kcal ( 23-25 kcal/kg BW). Est. Protein Needs: 89-104 gms/day ( 1.2-1.4 gms/kg BW) - Dialysis Will continue to monitor pertinent labs and reassess nutrient need prn Addendum: 03/10/20 at [address] Amended: Links added.
[2020-03-10 17:57] VITALS: BP 135/63
--- NOTE | 2020-03-10 19:35 | NUR ---
Opening Shift Note Assumed care of patient, awake and alert to self. No S/S of distress/SOB or pain. Safety measures in place bed in lowest position, side rails x2 up, and call light within reach. Instructed on POC and to call for assist PRN, will continue to monitor for changes Q1hr and PRN.
[2020-03-10 22:00] VITALS: BP 136/57
[2020-03-11 05:00] VITALS: BP 139/57
[2020-03-11] MEDS: metroNIDAZOLE 500MG/100ML 100 ML IV SCH ×3 (06:20→22:18)
[2020-03-11] MEDS: VANCOMYCIN HCL 125MG/5ML ORAL SOL PO SCH ×4 (06:20→22:18)
[2020-03-11 06:21] LABS: Basophils # (auto) 0 10 ^3/uL (0-0.2); Basophils % (auto) 0.4 % (0.0-2.0); Eosinophils # (auto) 0.2 10 ^3/uL (0-0.8); Eosinophils % (auto) 2.7 % (0.0-7.0); Hematocrit 24.7 % (41.0-53.0); Hemoglobin 8.4 g/dL (13.5-17.5); Lymphocytes # (auto) 1.4 10 ^3/uL (0.4-5.4); Lymphocytes % (auto) 19.2 % (10.0-50.0); Mean Corpuscular Hemoglobin 31.1 pg (28.0-32.0); Mean Corpuscular Hgb Conc. 34.2 g/dL (32.0-36.0); Monocytes # (auto) 0.8 10 ^3/uL (0-1.3); Monocytes % (auto) 11.4 % (0.0-12.0); Neutrophils # (auto) 4.8 10 ^3/uL (1.6-8.6); Neutrophils % (auto) 66.3 % (37.0-80.0); Nucleated Red Blood Cells % 0.1 %; Platelet Count (auto) 243 10^3/uL (140-450); Red Blood Cells 2.71 10^6/uL (4.5-5.90); Red Cell Distribution Width 15.2 % (11.8-14.3); White Blood Cell 7.3 10^3/uL (4.4-10.8)
[2020-03-11 06:38] LABS: Calcium 7.3 mg/dL (8.5-10.1); Potassium 3.5 mmol/L (3.5-5.1)
--- NOTE | 2020-03-11 06:49 | NUR ---
Caitlyn from chemistry called with a critical lab value Creatinine 13.3, value is improving from previous trend. Will continue to monitor.
[2020-03-11] MEDS: Ensure Enlive Strawberry 8oz Bottle PO SCH ×3 (08:00→17:46)
[2020-03-11 09:00] VITALS: BP 132/71
[2020-03-11] MEDS: PANTOPRAZOLE 40 MG TAB PO SCH (09:20)
[2020-03-11] MEDS: CARVEDILOL 3.125 MG TAB PO SCH ×2 (09:20→22:22)
[2020-03-11] MEDS: SEVELAMER 800 MG TAB PO SCH ×3 (09:20→17:46)
[2020-03-11] MEDS: cefTRIAXone 1GM/50ML D5W 50 ML IV SCH (09:21)
[2020-03-11] MEDS: B-COMPLEX W/ C & FOLIC ACID(NEPHROVITE TAB) PO SCH (09:26)
[2020-03-11] MEDS: ENALAPRIL MALEATE 2.5 MG TAB PO SCH ×2 (09:27→22:21)
--- NOTE | 2020-03-11 11:05 | NUR ---
OFF UNIT Patient off unit down to Dry Roaster
--- NOTE | 2020-03-11 12:00 | NUR ---
Missed Vancomycin dose Patient off unit missed 1200 scheduled Vancomycin dose.
[2020-03-11] MEDS ORDERED: HEPARIN SODIUM (PORCINE) 5000 UNITS/ML 1ML VIAL ONE (13:10)
[2020-03-11] MEDS ORDERED: fentaNYL CITRATE 100 MCG/2 ML VL ONE (13:10)
[2020-03-11] MEDS ORDERED: LIDOCAINE 2%HCL (LOCAL ANESTH.) INJ 20ML MDV ONE (13:11)
[2020-03-11] MEDS ORDERED: MIDAZOLAM HCL 1MG/1ML-2 ML VIAL ONE (13:11)
--- NOTE | 2020-03-11 15:15 | NUR ---
Patient back on Unit Patient back to unit from Computer Graphic Artist. Left side tunneled catheter in place, dressing intact, minimal bleeding noted to site. Patient verbalizes no pain VS- BP 155/75, HR 58, O2 99%.
[2020-03-11 17:00] VITALS: BP 118/53
--- NOTE | 2020-03-11 19:30 | NUR ---
Opening Shift Note Assumed care of patient, awake and alert. No S/S of distress/SOB or pain. Safety measures in place bed in lowest position, side rails x2 up, and call light within reach. Right groin dressing clean dry and intact. Left upper arm tunnel cath in place. Instructed on POC and to call for assist PRN, will continue to monitor for changes Q1hr and PRN.
[2020-03-11 21:59] VITALS: BP 127/66
[2020-03-12] MEDS: ACETAMINOPHEN 500 MG TAB PO PRN (00:38)
[2020-03-12 05:00] VITALS: BP 144/59
[2020-03-12] MEDS: VANCOMYCIN HCL 125MG/5ML ORAL SOL PO SCH ×3 (05:49→18:00)
[2020-03-12] MEDS: metroNIDAZOLE 500MG/100ML 100 ML IV SCH (05:49)
--- NOTE | 2020-03-12 05:52 | NUR ---
Roslyn from [facility] called, she will arrive in one hour to start dialysis.
[2020-03-12 06:07] LABS: BUN/Creatinine Ratio 2.9; Calcium 7.9 mg/dL (8.5-10.1); Potassium 3.9 mmol/L (3.5-5.1)
--- NOTE | 2020-03-12 06:34 | NUR ---
Caitlyn from chemistry called regarding critical Creatinine 14.4. Patient's creatinine has been trending critically high. Patient prepared to receive dialysis at 0645.
--- NOTE | 2020-03-12 06:58 | NUR ---
Dialysis nurse at the bedside. Signed: 03/12/20 at 0659 by MARIA R MERCADO RN RN
[2020-03-12] MEDS ORDERED: SODIUM CHL 0.9% 1000 ML BAG XX ONE (07:00)
--- NOTE | 2020-03-12 08:00 | NUR ---
ASSUMED CARE OF PATIENT WHILE ATTENDED IN ISOLATION ROOM BY HD RN. HEMODIALYSIS IN PROGRESS. NOC RN REPORTS THAT HD IS IN NEW ACCESS TO RT CHEST WALL CATH RECENTLY PLACED.
[2020-03-12 08:54] VITALS: BP 133/63
[2020-03-12] MEDS: ENALAPRIL MALEATE 2.5 MG TAB PO SCH ×2 (10:00→21:21)
[2020-03-12] MEDS: SEVELAMER 800 MG TAB PO SCH ×3 (12:00→19:30)
[2020-03-12] MEDS: Ensure Enlive Strawberry 8oz Bottle PO SCH ×3 (12:15→18:00)
[2020-03-12] MEDS: CARVEDILOL 3.125 MG TAB PO SCH ×2 (12:16→21:21)
[2020-03-12] MEDS: B-COMPLEX W/ C & FOLIC ACID(NEPHROVITE TAB) PO SCH (12:17)
[2020-03-12] MEDS: PANTOPRAZOLE 40 MG TAB PO SCH (12:17)
[2020-03-12 12:50] VITALS: BP 121/76
[2020-03-12 16:54] VITALS: BP 147/69
--- NOTE | 2020-03-12 18:00 | NUR ---
CONTINUES INDEPENDENT WITH ADL'S WITH NO COMPLAINS. RT GROIN SITE REMAINS BENIGN. WEARS AND CARES FOR HIS CARDIAC VEST.
--- NOTE | 2020-03-12 19:16 | NUR ---
Opening Shift Note Assumed care of patient, awake and alert. No S/S of distress/SOB or pain. Instructed on POC and to call for assist PRN, will continue to monitor for changes Q1hr and PRN. Side rails up x2. Bed locked in lowest position. Call light within reach.
[2020-03-12] MEDS ORDERED: EPOETIN ALFA 10,000 UNIT/1 ML VIAL SC ONE (21:00)
[2020-03-12 22:00] VITALS: BP 134/65
[2020-03-13 05:00] VITALS: BP 110/66
[2020-03-13] MEDS: VANCOMYCIN HCL 125MG/5ML ORAL SOL PO SCH ×4 (06:10→22:00)
--- NOTE | 2020-03-13 07:24 | NUR ---
Endorsed care to day shift RN. Patient in bed asleep with no signs of distress.
[2020-03-13] MEDS: Ensure Enlive Strawberry 8oz Bottle PO SCH ×3 (08:00→18:05)
--- NOTE | 2020-03-13 08:10 | NUR ---
ASSUMED CARE OF PT INDEPENDANT WITH ADL'S IN ISOLATION FOR C-DIFF. CROATIAN SPEKING ONLY. ABLE TO COMMUNICATE NEEDS. INDICATES NO COMPLAINTS OR NEEDS , NO PAIN. TOLERATES BREAKFAST. MAINTAINS WEARING CARDIAC VEST.
[2020-03-13] MEDS: SEVELAMER 800 MG TAB PO SCH (08:45)
[2020-03-13 09:00] VITALS: BP 142/69
[2020-03-13 09:04] LABS: BUN/Creatinine Ratio 3.3; Magnesium 1.7 mg/dL (1.6-2.6); Potassium 3.8 mmol/L (3.5-5.1)
[2020-03-13] MEDS ORDERED: MAGNESIUM SULFATE 1GM/100ML 100 ML IV ONE (10:00)
[2020-03-13] MEDS ORDERED: VANC125PO PO (10:31)
[2020-03-13] MEDS: CARVEDILOL 3.125 MG TAB PO SCH (11:00)
[2020-03-13] MEDS: B-COMPLEX W/ C & FOLIC ACID(NEPHROVITE TAB) PO SCH (11:00)
[2020-03-13] MEDS: FAMOTIDINE 20 MG TAB PO SCH (11:00)
[2020-03-13] MEDS: ENALAPRIL MALEATE 2.5 MG TAB PO SCH (11:00)
[2020-03-13 13:00] VITALS: BP 107/59
--- NOTE | 2020-03-13 13:32 | NUR ---
CALL TO PATIENTS PHARMACY TO CONFIRM PRESCRIPTION FOR PO VANCOMYCIN HAS BEEN FILLED. REQUIRES PER AUTHORIZATION FROM THE INSURANCE. MESSAGE LEFT WITH COIL REWIND MACHINE OPERATOR JACEK TO ASSIST IN EXPEDITING APPROVAL.
--- NOTE | 2020-03-13 14:06 | NUR ---
[facility] CALLED BACK ICD 10 DX CODES PROVIDED. REQUESTED TO PLACE IN THE NOTES ON PREAUTH REQUEST THAT DISCHARGE FROM ACUTE CARE SETTING DELAYED UNTIL SCRIPT FILLED.
--- NOTE | 2020-03-13 15:09 | NUR ---
assessment Patient is a 75 year old male who is alert and oriented and Afghan speaking. Per patients deepika John prior to admission patient lived home with family and functioned with assistance. Per John patient has a cane for home use. Patient is on dialysis with [facility] MWF. Per John patients assist patient in the home. Patient will return home with family on discharge and family will transport. John verbalized understanding and agreed to discharge plan home. Addendum: 03/13/20 at 1513 by Adenike MALDONADO Amended: Links added.
[2020-03-13 16:45] VITALS: BP 120/61
--- NOTE | 2020-03-13 19:04 | NUR ---
CALL TO PT'S PHARMACY F/U ON VANCO HOME MED. TECH STATES [facility] HAS BEEN SENT TO MEDICAL WITH URGENT REQUEST. NO REPLY YET AND CAN TAKE UP TO 72 HOURS TO PROCESS.
--- NOTE | 2020-03-13 21:00 | NUR ---
[facility] been notified that the patient's PO Vancomycin script has not been able to be filled and is unable to be discharged home. Sergio Vallejo ordered to hold discharge until script could be filled.
[2020-03-13 22:00] VITALS: BP 137/64
[2020-03-14 05:00] VITALS: BP 145/65
[2020-03-14] MEDS: VANCOMYCIN HCL 125MG/5ML ORAL SOL PO SCH ×4 (06:00→22:00)
[2020-03-14] MEDS ORDERED: SODIUM CHL 0.9% 1000 ML BAG XX ONE (07:00)
[2020-03-14] MEDS: Ensure Enlive Strawberry 8oz Bottle PO SCH ×3 (08:00→18:00)
[2020-03-14 09:00] VITALS: BP 127/61
--- NOTE | 2020-03-14 09:50 | NUR ---
Confirmed HD scheduled for this am. Pt. made aware. F/U with Daphne castillo.
--- NOTE | 2020-03-14 09:59 | NUR ---
pharmacy reports medical ins has rejected requested medication based on diagnostic code. Md contacted made aware. " c-diff colitis" is Dx. Medical records contacted. ICD10 code is A0472. Returned call to [facility] code provided.
[2020-03-14] MEDS: ENALAPRIL MALEATE 2.5 MG TAB PO SCH ×2 (11:30→22:05)
[2020-03-14] MEDS: CARVEDILOL 3.125 MG TAB PO SCH ×2 (11:30→22:04)
[2020-03-14] MEDS: SEVELAMER 800 MG TAB PO SCH ×3 (11:31→18:50)
[2020-03-14 13:00] VITALS: BP 141/66
--- NOTE | 2020-03-14 14:29 | NUR ---
HD HAS BEEN IN PROGRESS. EZIO CONTACTED FOR UPDATE. NO REPLY FROM INS FOR PRE AUTH YET. SOCIAL SERVICE TIMOTEO HAYDEN ATTEMPTING TO ARRANGE PRESCRIPTION AT ALTERNATE PHARMACY, COORDINATING WITH .
[2020-03-14 17:00] VITALS: BP 110/55
--- NOTE | 2020-03-14 18:55 | NUR ---
PRESCRIPTION NOT FILLED. DC HOME DELAYED.
--- NOTE | 2020-03-14 19:25 | NUR ---
Opening Shift Note Assumed care of patient, awake and alert. No S/S of distress/SOB or pain. Bed is locked in lowest position with call light within reach. Instructed on POC and to call for assist PRN, will continue to monitor for changes Q1hr and PRN.
[2020-03-14] MEDS ORDERED: EPOETIN ALFA 10,000 UNIT/1 ML VIAL SC ONE (21:00)
[2020-03-14 22:00] VITALS: BP 147/64
[2020-03-15 05:13] VITALS: BP 142/57
[2020-03-15 08:00] VITALS: BP 130/68
[2020-03-15] MEDS: SEVELAMER 800 MG TAB PO SCH (08:23)
[2020-03-15] MEDS: Ensure Enlive Strawberry 8oz Bottle PO SCH (08:23)
[2020-03-15 09:00] VITALS: BP 130/68
--- NOTE | 2020-03-15 10:00 | NUR ---
TIMOTEO Wheeler BROUGHT PATIENTS VANCO PRESCRIPTION TO NURSES STATION. I WILL PROVIDE TO PATIENT UPON DISCHARGE
[2020-03-15] MEDS: B-COMPLEX W/ C & FOLIC ACID(NEPHROVITE TAB) PO SCH (10:56)
[2020-03-15] MEDS: CARVEDILOL 3.125 MG TAB PO SCH (10:56)
[2020-03-15] MEDS: FAMOTIDINE 20 MG TAB PO SCH (10:56)
[2020-03-15 11:28] VITALS: BP 130/68
--- NOTE | 2020-03-15 12:15 | NUR ---
Discharge instructions given as ordered. Encourage to follow up with PMD as instructed on March 20 @ 1:40 PM. Appointment is a tele appointment with Dr. Chao [phone] ext [phone]. All questions and concerns addressed. Patient verbalized understanding. Medication reconciliation form completed and copy given to patient. Vanco medication given to patient. [facility] will contact patient prior to Wednesday to provide additional vanco medication needed. No home medications being held in Pharmacy and patient refused needed vaccines. IV removed with catheter intact and pressure dressing applied. All discharge instructions given to patient in Peruvian. Telemetry unit returned to ICU. Patient taken to vehicle via wheelchair with all personal belongings, accompanied by staff member. No distress noted at time of departure.
== END 2020-03-15 12:15 | disposition home or self-care (01) | DRG 206 ==
LOC: ER 11:29 → EDBD 11:29 → TELE-CENTR 11:30
PROVIDERS: ADMIT Internal Medicine; ATTEND Internal Medicine
PROC: 0JH63XZ Insertion of Tunneled Vascular Access Device into Chest Subcutaneous Tissue and Fascia, Percutaneous Approach (ICD-10-PCS; principal; 2020-03-11)
PROC: 02HV33Z Insertion of Infusion Device into Superior Vena Cava, Percutaneous Approach (ICD-10-PCS; 2020-03-11)
PROC: B5181ZA Fluoroscopy of Superior Vena Cava using Low Osmolar Contrast, Guidance (ICD-10-PCS; 2020-03-11)
PROC: B548ZZA Ultrasonography of Superior Vena Cava, Guidance (ICD-10-PCS; 2020-03-11)
DX: T82.868A Thrombosis due to vascular prosthetic devices, implants and grafts, initial encounter (principal); E44.0 Moderate protein-calorie malnutrition; A04.72 Enterocolitis due to Clostridium difficile, not specified as recurrent; I13.2 Hypertensive heart and chronic kidney disease with heart failure and with stage 5 chronic kidney disease, or end stage renal disease; Y83.2 Surgical operation with anastomosis, bypass or graft as the cause of abnormal reaction of the patient, or of later complication, without mention of misadventure at the time of the procedure; E11.22 Type 2 diabetes mellitus with diabetic chronic kidney disease; E87.6 Hypokalemia; I25.10 Atherosclerotic heart disease of native coronary artery without angina pectoris; I50.32 Chronic diastolic (congestive) heart failure; E87.1 Hypo-osmolality and hyponatremia; D63.8 Anemia in other chronic diseases classified elsewhere; N18.6 End stage renal disease; K40.20 Bilateral inguinal hernia, without obstruction or gangrene, not specified as recurrent; Z87.442 Personal history of urinary calculi; Z99.2 Dependence on renal dialysis; Z68.21 Body mass index [BMI] 21.0-21.9, adult; Y92.89 Other specified places as the place of occurrence of the external cause; Z03.818 Encounter for observation for suspected exposure to other biological agents ruled out
CPT/HCPCS: 36415; 36561; 71046; 74176; 76937; 77001; 80048; 80053; 82962; 83605; 83690; 83735; 84443; 85025; 85610; 85652; 85730; 86141; 87040; 87045; 87427; 87493; 90935; 93005; 93306; 96365; 99152; 99153; G0378; J0696; J0885; J1642; J2250; J2543; J3490

== ENCOUNTER 2020-03-20 15:45 | Emergency (ER) | payer MEDICAID ==
[~2020-03-20] VITALS: Ht 152.4 cm; Wt 77.7 kg
[~2020-03-20 15:45] MED LIST changes: -ENAL2.5T PO; +ENAL2.5T7 PO; +VANC125PO PO
[2020-03-20 19:35] LABS: Basophils # (auto) 0.1 10 ^3/uL (0-0.2); Basophils % (auto) 1.3 % (0.0-2.0); Eosinophils # (auto) 0.8 10 ^3/uL (0-0.8); Eosinophils % (auto) 11.2 % (0.0-7.0); Hematocrit 30.2 % (41.0-53.0); Hemoglobin 9.9 g/dL (13.5-17.5); Lymphocytes # (auto) 1.2 10 ^3/uL (0.4-5.4); Lymphocytes % (auto) 16.2 % (10.0-50.0); Mean Corpuscular Hemoglobin 30.5 pg (28.0-32.0); Mean Corpuscular Hgb Conc. 32.7 g/dL (32.0-36.0); Mean Corpuscular Volume 93.4 fL (80.0-100.0); Monocytes # (auto) 0.6 10 ^3/uL (0-1.3); Monocytes % (auto) 8.5 % (0.0-12.0); Neutrophils # (auto) 4.7 10 ^3/uL (1.6-8.6); Neutrophils % (auto) 62.8 % (37.0-80.0); Nucleated Red Blood Cells % 0.1 %; Platelet Count (auto) 496 10^3/uL (140-450); Red Blood Cells 3.23 10^6/uL (4.5-5.90); Red Cell Distribution Width 17.3 % (11.8-14.3); White Blood Cell 7.6 10^3/uL (4.4-10.8)
[2020-03-20 19:42] LABS: Albumin 2.6 g/dL (3.4-5.0); Calcium 8.6 mg/dL (8.5-10.1); Magnesium 2.2 mg/dL (1.6-2.6); Potassium 4.2 mmol/L (3.5-5.1)
[2020-03-20 19:45] LABS: Bilirubin, Total 0.4 mg/dL (0.2-1.0)
[2020-03-20 19:54] LABS: INR 1.02 (0.9-1.15); Partial Thromboplastin Time 27.9 sec (23.64-32.05)
[2020-03-20 20:23] LABS: Urine Bacteria NONE SEEN /hpf (None Seen); Urine Blood TRACE /uL (Negative); Urine Specific Gravity 1.005 (1.001-1.035); Urine WBC 8 /hpf (0 - 3)
[2020-03-20] MEDS ORDERED: ENOXAPARIN SOD 100 MG/1 ML SYRINGE SC ONE (22:00)
[2020-03-21 06:48] VITALS: BP 166/62
== END 2020-03-21 07:01 | disposition short-term general hospital (02) ==
LOC: ER 15:45
DX: I82.622 Acute embolism and thrombosis of deep veins of left upper extremity (principal); I82.890 Acute embolism and thrombosis of other specified veins; T82.590A Other mechanical complication of surgically created arteriovenous fistula, initial encounter; I13.2 Hypertensive heart and chronic kidney disease with heart failure and with stage 5 chronic kidney disease, or end stage renal disease; E11.22 Type 2 diabetes mellitus with diabetic chronic kidney disease; N18.6 End stage renal disease; I50.9 Heart failure, unspecified; Z99.2 Dependence on renal dialysis; Z79.2 Long term (current) use of antibiotics; Z79.899 Other long term (current) drug therapy
CPT/HCPCS: 36415; 71045; 80053; 81001; 83735; 85025; 85610; 85730; 93005; 93971; 96372; 99285; J1650

== ENCOUNTER 2023-09-15 01:28 | Emergency (ER) | payer MEDICAID, OTHER ==
[~2023-09-15] VITALS: Ht 165.1 cm; Wt 75.0 kg
[~2023-09-15 01:28] MED LIST changes: +B-CO1TAB33 PO; +ENAL1TAB42 PO; -ENAL2.5T7 PO; -NEPVITT PO
[2023-09-15 02:48] VITALS: BP 103/60; PULSE 94; RESP 16; TEMP 98.1; O2SAT 97
== END 2023-09-15 04:04 | disposition home or self-care (01) ==
LOC: ER 01:28
DX: Z00.8 Encounter for other general examination (principal); I12.0 Hypertensive chronic kidney disease with stage 5 chronic kidney disease or end stage renal disease; E11.22 Type 2 diabetes mellitus with diabetic chronic kidney disease; N18.6 End stage renal disease; Z98.818 Other dental procedure status; Z79.899 Other long term (current) drug therapy

== ENCOUNTER 2025-10-25 08:55 | Inpatient (IN) | payer OTHER ==
[~2025-10-25] VITALS: Ht 157.5 cm; Wt 97.0 kg
[2025-10-25] VITALS (10 sets, daily range): BP systolic 115–135; BP diastolic 35–43; PULSE 53–106; RESP 10–22; TEMP 97.2; O2SAT 96–100
[~2025-10-25 08:55] MED LIST changes: -CAR3125T PO; +CARV-214 PO; -SEVE800T PO; +SEVE800T7 PO
--- NOTE | 2025-10-25 09:22 | ECG ---
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
--- NOTE | 2025-10-25 09:41 | DVH ---
CHEST RADIOGRAPH Indication: sob Technique: Single frontal view of the chest was obtained COMPARISON: None FINDINGS: Lines and Tubes: None Lungs: Multifocal airspace disease. Pleura: No effusion.No pneumothorax. Cardiomediastinal contours: Cardiomegaly. Bones: Unremarkable IMPRESSION: Cardiomegaly. Pulmonary vascular congestion and possible multifocal airspace disease.
--- NOTE | 2025-10-25 09:52 | ED.PDOC ---
SOB-HPI HPI Comments 80-year-old male with a medical history of ESRD, dialysis Wednesday and Wednesday, an AFib, presents to the ED for chief complaint of shortness a breath in the started yesterday. The patient was brought in by deepika who states that patient has not eaten in the past two days and has been feeling weak. Additionally, grandson reports that patient has had bloody stools for the past couple of weeks, states he had a colonoscopy three weeks ago in which they detected some colon polyp and was told that bleeding was normal. In his still having bloody stools. Upon ED arrival, the patient's saturation level is at 82- 85 % on room air and was placed on 3 L via NC with saturation improving to 95%. He denies any chest pain, palpitations, nausea, vomiting. Chief Complaint: Shortness of Breath Time Seen by MD: 09:25 Primary Care Provider: Unknown Reviewed notes: Nurses Notes, Medications, Allergies Information Source: Patient, Relative (GrandChild) Mode of Arrival: Ambulatory Severity: Moderate Timing: Days (2) Duration: Since onset Context: At Rest PE Risk Factors: None History of: None Modifying Factors: Nothing Associated Signs and Symptoms: None Past Medical History PAST MEDICAL HISTORY: DM, ESRD, HTN Surgical History: Denies all surgeries Family History Family History: Unknown Social History Smoker: Non-Smoker Alcohol: Denies ETOH Use Drugs: Denies Drug Use Lives In: Home Constitutional: denies: chills, diaphoresis, fatigue, fever, malaise, sweats, weakness, others EENTM: denies: blurred vision, double vision, ear bleeding, ear discharge, ear drainage, ear pain, ear ringing, eye pain, eye redness, hearing loss, mouth pain, mouth swelling, nasal discharge, nose bleeding, nose congestion, nose pain, photophobia, tearing, throat pain, throat swelling, voice changes, others Respiratory: reports: SOB at rest, shortness of breath, SOB with excertion; denies: cough, hemoptysis, orthopnea, stridor, wheezing, others Cardiovascular: denies: chest pain, dizzy spells, diaphoresis, Dyspnea on exertion, edema, irregular heart beat, left arm pain, lightheadedness, palpitations, PND, syncope, others Gastrointestinal: denies: abdomen distended, abdominal pain, blood streaked bowels, constipated, diarrhea, dysphagia, difficulty swallowing, hematemesis, melena, nausea, poor appetite, poor fluid intake, rectal bleeding, rectal pain, vomiting, others Genitourinary: denies: burning, dysuria, flank pain, frequency, hematuria, incontinence, penile discharge, penile sore, pain, testicle pain, testicle swelling, urgency, others Neurological: denies: dizziness, fainting, headache, left sided numbness, left sided weakness, numbness, paresthesia, pre-existing deficit, right sided numbness, right sided weakness, seizure, speech problems, tingling, tremors, weakness, others Musculoskeletal: denies: back pain, gout, joint pain, joint swelling, muscle pain, muscle stiffness, neck pain, others Integumetry: denies: bruises, change in color, change in hair/nails, dryness, laceration, lesions, lumps, rash, wounds, others Allergic/Immunocompromised: denies: Difficulty Healing, Frequent Infections, Hives, Itching, others Hematologic/Lymphatic: denies: anemia, blood clots, easy bleeding, easy bruising, swollen glands, others Endocrine: denies: excessive hunger, excessive sweating, excessive thirst, excessive urination, flushing, intolerance to cold, intolerance to heat, unexplained weight gain, unexplained weight loss, others Psychiatric: denies: anxiety, bipolar disorder, depression, hopeless, panic disorder, schizophrenia, sleepless, suicidal, others All Other Systems: Reviewed and Negative Physical Exam General Appearance: Severe Distress HEENT: Normal ENT Inspection, Pharynx Normal, TMs Normal Neck: Full Range of Motion, Non-Tender, Normal, Normal Inspection Respiratory: Other (Coarse breath sounds) Cardiovascular: Tachycardia Breast Exam: Deferred Gastrointestinal: No Organomegaly, Non Tender, No Pulsatile Mass, Normal Bowel Sounds, Soft Genitalia: Deferred Pelvic: Deferred Rectal: Deferred Extremities: No calf tenderness, Pedal edema Musculoskeletal : Apperance: Normal Neurologic: Alert, No Motor Deficits, No Sensory Deficits Cerebellar Function: NOT DONE Reflexes: Normal Skin: Pallor Peripheral Pulses: 3+ Radial (R), 3+ Radial (L) Lymphatic: No Adenopathy Was a procedure done? Was a procedure done?: No Differential Dx Differential Diagnosis: Anxiety, Asthma, Bronchitis, Dysrhythmia, Hyponatremia, Pneumonia, Respiratory Distress, URI X-Ray, Labs, Meds, VS Vital Signs Date Time Temp Pulse Resp B/P (MAP) Pulse Ox O2 Delivery O2 Flow Rate FiO2 10/25/25 09:16 109 10/25/25 08:58 101.7 130 13 115/64 84 101.7 Lab Test 10/25/25 09:25 Range/Units White Blood Count 14.2 H 4.4-10.8 10^3/uL Red Blood Count 2.73 L 4.5-5.90 10^6/uL Hemoglobin 8.0 L 13.5-17.5 g/dL Hematocrit 23.9 L 41.0-53.0 % Mean Corpuscular Volume 87.7 80.0-100.0 fL Mean Corpuscular Hemoglobin 29.2 28.0-32.0 pg Mean Corpuscular Hemoglobin Concent 33.3 32.0-36.0 g/dL Red Cell Distribution Width 17.4 H 11.8-14.3 % Platelet Count 313 140-450 10^3/uL Mean Platelet Volume 8.4 6.9-10.8 fL Neutrophils (%) (Auto) 86.1 H 37.0-80.0 % Lymphocytes (%) (Auto) 4.4 L 10.0-50.0 % Monocytes (%) (Auto) 8.3 0.0-12.0 % Eosinophils (%) (Auto) 0.6 0.0-7.0 % Basophils (%) (Auto) 0.6 0.0-2.0 % Neutrophils # (Auto) 12.3 H 1.6-8.6 10 ^3/uL Lymphocytes # (Auto) 0.6 0.4-5.4 10 ^3/uL Monocytes # (Auto) 1.2 0-1.3 10 ^3/uL Eosinophils # (Auto) 0.1 0-0.8 10 ^3/uL Basophils # (Auto) 0.1 0-0.2 10 ^3/uL Nucleated Red Blood Cells 0.0 % Prothrombin Time 13.0 H 9.3-11.8 sec Prothrombin Time INR 1.25 H 0.9-1.15 Activated Partial Thromboplast Time 32.8 24.5-34.5 SEC Sodium Level 138 136-145 mmol/L Potassium Level 4.0 3.5-5.1 mmol/L Chloride Level 96 L 98-107 mmol/L Carbon Dioxide Level 30 20-31 mmol/L Anion Gap 12 5-15 Blood Urea Nitrogen 42 H 9-23 mg/dL Creatinine 7.13 H 0.700-1.30 mg/dL Glomerular Filtration Rate Calc 7 >90 mL/min BUN/Creatinine Ratio 5.9 L 10.0-20.0 Serum Glucose 104 74-106 mg/dL Lactic Acid Level 1.9 0.4-2.0 mmol/L Calcium Level 9.7 8.7-10.4 mg/dL Total Bilirubin 0.6 0.2-1.0 mg/dL Aspartate Amino Transferase (AST) 39 13-40 U/L Alanine Aminotransferase (ALT) 23 7-40 U/L Alkaline Phosphatase 107 46-116 U/L Total Protein 6.8 5.7-8.2 g/dL Albumin 3.2 3.2-4.8 g/dL Current Medications Medications (Trade) Dose Ordered Sig/Florentin Route Start Time Stop Time Status Last Admin Cefepime HCl 50 ml @ 12.5 mls/hr ONCE ONCE IV 10/25/25 09:15 10/25/25 13:14 10/25/25 10:00 Azithromycin 250 ml @ 125 mls/hr ONCE ONCE IV 10/25/25 09:15 10/25/25 11:14 10/25/25 10:50 Sodium Chloride 1,000 ml @ 1,000 mls/hr Q1H ONCE IV 10/25/25 10:45 10/25/25 11:44 10/25/25 10:53 Patient alert. Answering questions. End-stage renal disease on dialysis. Sepsis protocol. WBC elevated. Chronic anemia. Have to hold the fluids because of renal condition. Dialysis. Was given cefepime. Was given azithromycin. Explained to the patient. Continue monitoring. Time of 1ST Reevaluation: 09:52 Reevaluation 1ST: Unchanged Patient Education/Counseling: Diagnosis, Treatment, Prognosis Family Education/Counseling: Diagnosis, Treatment, Prognosis SEPSIS Sepsis Screen Date sepsis recognized/suspect: Oct 25, 2025 Time Sepsis recognized/suspect: 857 Recent Procedure: No On Antibiotic Therapy: No Respiratory Rate >20: No Heart Rate >90: Yes Temp<36 C (96.8 F) or >38.3 C: Yes SBP <90 or MAP <65 mmHG: No New Acute Mental Status Change: No Is the patient on CPAP, BIPAP,: No Physician Orders Urinalysis (10/25/25 09:06) Chest Portable (10/25/25 09:06) Accucheck (10/25/25 09:06) Blood Culture (10/25/25 09:06) Cefepime 1gm/50ml (Maxipime 1gm/50ml) (10/25/25 09:15) Notify Md If Map <65 Or Bp<90 (10/25/25 09:06) If Map<65 Start Vasopressor (10/25/25 09:06) Sepsis Reassesment After Fluid (10/25/25 10:06) Azithromycin 500mg/250ml (Zithromax 500m (10/25/25 09:15) Sodium Chloride 0.9% (10/25/25 10:45) Sodium Chloride 0.9% (10/25/25 10:45) Vital Signs Date Time Temp Pulse Resp B/P (MAP) Pulse Ox O2 Delivery O2 Flow Rate FiO2 10/25/25 09:16 109 10/25/25 08:58 101.7 130 13 115/64 84 101.7 Laboratory Tests Test 10/25/25 09:25 Lactic Acid Level 1.9 mmol/L (0.4-2.0) White Blood Count 14.2 10^3/uL (4.4-10.8) H Medications Medications Dose Ordered Sig/Florentin Route Start Time Stop Time Status Last Admin Dose Admin Azithromycin 250 ml @ 125 mls/hr ONCE ONCE IV 10/25/25 09:15 10/25/25 11:14 10/25/25 10:50 Cefepime HCl 50 ml @ 12.5 mls/hr ONCE ONCE IV 10/25/25 09:15 10/25/25 13:14 10/25/25 10:00 Sodium Chloride 1,000 ml @ 1,000 mls/hr Q1H ONCE IV 10/25/25 10:45 10/25/25 11:44 10/25/25 10:53 Departure 1 Departure Time of Disposition: 11:02 Impression: Primary Impression: Sepsis Qualified Codes: A41.9 - Sepsis, unspecified organism Additional Impressions: End stage renal disease on dialysis CHF (congestive heart failure) Qualified Codes: I50.43 - Acute on chronic combined systolic (congestive) and diastolic (congestive) heart failure Disposition: ADMITTED INPATIENT Admit to: Med Surg Condition: Guarded Critical Care Note Critical Care Time?: No Stability Stability form required: No I personally scribed for REBEKAH FARIAS MD ([email or web address]) on 10/25/25 at 09:52. Electronically submitted by Lesly Strange ([facility]). REBEKAH FARIAS MD Oct 25, 2025 09:52
[2025-10-25] MEDS: CEFEPIME 1GM/50ML 50 ML IV ONE (10:00)
[2025-10-25 10:03] LABS: Hematocrit 23.9 % (41.0-53.0); Hemoglobin 8.0 g/dL (13.5-17.5); Mean Corpuscular Hemoglobin 29.2 pg (28.0-32.0); Mean Corpuscular Volume 87.7 fL (80.0-100.0); Nucleated Red Blood Cells % 0.0 %
[2025-10-25 10:12] LABS: Alanine Aminotransferase 23 U/L (7-40); Albumin 3.2 g/dL (3.2-4.8); Alkaline Phosphatase 107 U/L (46-116); Anion Gap 12 (5-15); BUN/Creatinine Ratio 5.9 (10.0-20.0); Calcium 9.7 mg/dL (8.7-10.4); Carbon Dioxide 30 mmol/L (20-31); Glucose 104 mg/dL (74-106); Potassium 4.0 mmol/L (3.5-5.1); Sodium 138 mmol/L (136-145); Total Protein 6.8 g/dL (5.7-8.2)
[2025-10-25 10:13] LABS: Bilirubin, Total 0.6 mg/dL (0.2-1.0)
[2025-10-25 10:15] LABS: Blood Urea Nitrogen 42 mg/dL (9-23); Chloride 96 mmol/L (98-107)
[2025-10-25 10:17] LABS: INR 1.25 (0.9-1.15); Partial Thromboplastin Time 32.8 SEC (24.5-34.5); Prothrombin Time 13.0 sec (9.3-11.8)
[2025-10-25] MEDS: SODIUM CHLORIDE 0.9% 1,000 ML IV ONE ×2 (10:42)
[2025-10-25] MEDS: AZITHROMYCIN 500MG/250ML 250 ML IV ONE (10:50)
[2025-10-25] MEDS ORDERED: ONDANSETRON HCL 4 MG/2 ML VIAL IV PRN (12:15)
[2025-10-25] MEDS ORDERED: HEPARIN DRIP/D5W 100UNITS/ML 250 ML IV SCH (12:45)
--- NOTE | 2025-10-25 13:36 | DVHHPRES ---
History of Present Illness Resident Creating Document: JHGOGOEVANGELINAARLET RESIDENT History of Present Illness Patient is a 80-year-old male with a medical history of hypertension, end-stage renal disease on dialysis Wednesday was brought to the ED for chief complaint of shortness of breath since yesterday. Patient was reported to be apparently well until yesterday when he started to have shortness of breath associated after he got dialysis and later went home but continued to have shortness of breath following which she was brought to the hospital today morning for further evaluation. Patient denied any cough, phlegm, fever or chills, chest pain. Patient also reportedly has been having blood in the stools since the last 3 weeks since he got the colonoscopy and a polyp was removed. Patient denied any recent surgeries, immobilization, no calf pain, no chest pain. As per the grandson patient also has not been eating well since the last few days, patient denies any dysphagia, odynophagia or nausea/ vomiting. On arrival to the ED patient was seen to be tachycardic and EKG showed atrial fibrillation, elevated WBC count with left shift and was recorded to have a fever of 101.7 F. he will be admitted for further evaluation Medical history: Hypertension, ESRD on dialysis MWF Surgical history: Left upper arm fistula, denies any other surgery Social history: Patient lives with the family and denies smoking, alcohol, drug use Home medications: Amlodipine, carvedilol, enalapril, sevelamer Review of Systems Review of Systems Patient reports to be feeling better, no shortness of breath while on 2 L oxygen No chest pain, nausea, vomiting Allergies: Coded Allergies: NO KNOWN ALLERGIES (Unverified , 02/04/20) Exam Vital Signs Vital Signs Date Time Temp Pulse Resp B/P (MAP) Pulse Ox O2 Delivery O2 Flow Rate FiO2 10/25/25 11:40 99.2 108 18 104/45 (64) 98 99.2 Exam Skin - Patients skin is warm and dry. HEENT - normocephalic, atraumatic, moist mucous membranes, mild conjunctival pallor, no scleral icterus Neck - full ROM, no LAD, no JVD Pulmonary - B/L diffuse inspiratory rales cardiovascular -irregularly irregularS1,S2 heard, systolic murmur heard at the apex. peripheral pulses normal radial 2+, pedal 2+. capillary refill normal 3 secs. GI - soft, nontender abdomen. no hepatospleenomegaly. Bowel sounds normoactive Neurological - Patient is A/O X 4 . Bilateral upper extremity strength 5/5, bilateral lower extremity strength 5/5, no facial droop, normal speech, no tremor, no sensory deficiets. Labs/Xrays Labs Test 10/25/25 09:25 Range/Units White Blood Count 14.2 H 4.4-10.8 10^3/uL Red Blood Count 2.73 L 4.5-5.90 10^6/uL Hemoglobin 8.0 L 13.5-17.5 g/dL Hematocrit 23.9 L 41.0-53.0 % Mean Corpuscular Volume 87.7 80.0-100.0 fL Mean Corpuscular Hemoglobin 29.2 28.0-32.0 pg Mean Corpuscular Hemoglobin Concent 33.3 32.0-36.0 g/dL Red Cell Distribution Width 17.4 H 11.8-14.3 % Platelet Count 313 140-450 10^3/uL Mean Platelet Volume 8.4 6.9-10.8 fL Neutrophils (%) (Auto) 86.1 H 37.0-80.0 % Lymphocytes (%) (Auto) 4.4 L 10.0-50.0 % Monocytes (%) (Auto) 8.3 0.0-12.0 % Eosinophils (%) (Auto) 0.6 0.0-7.0 % Basophils (%) (Auto) 0.6 0.0-2.0 % Neutrophils # (Auto) 12.3 H 1.6-8.6 10 ^3/uL Lymphocytes # (Auto) 0.6 0.4-5.4 10 ^3/uL Monocytes # (Auto) 1.2 0-1.3 10 ^3/uL Eosinophils # (Auto) 0.1 0-0.8 10 ^3/uL Basophils # (Auto) 0.1 0-0.2 10 ^3/uL Nucleated Red Blood Cells 0.0 % Prothrombin Time 13.0 H 9.3-11.8 sec Prothrombin Time INR 1.25 H 0.9-1.15 Activated Partial Thromboplast Time 32.8 24.5-34.5 SEC Sodium Level 138 136-145 mmol/L Potassium Level 4.0 3.5-5.1 mmol/L Chloride Level 96 L 98-107 mmol/L Carbon Dioxide Level 30 20-31 mmol/L Anion Gap 12 5-15 Blood Urea Nitrogen 42 H 9-23 mg/dL Creatinine 7.13 H 0.700-1.30 mg/dL Glomerular Filtration Rate Calc 7 >90 mL/min BUN/Creatinine Ratio 5.9 L 10.0-20.0 Serum Glucose 104 74-106 mg/dL Lactic Acid Level 1.9 0.4-2.0 mmol/L Calcium Level 9.7 8.7-10.4 mg/dL Total Bilirubin 0.6 0.2-1.0 mg/dL Aspartate Amino Transferase (AST) 39 13-40 U/L Alanine Aminotransferase (ALT) 23 7-40 U/L Alkaline Phosphatase 107 46-116 U/L Total Protein 6.8 5.7-8.2 g/dL Albumin 3.2 3.2-4.8 g/dL SEPSIS Sepsis Screen Date sepsis recognized/suspect: Oct 25, 2025 Time Sepsis recognized/suspect: 924 Recent Procedure: No On Antibiotic Therapy: No Respiratory Rate >20: Yes Heart Rate >90: Yes Temp<36 C (96.8 F) or >38.3 C: Yes SBP <90 or MAP <65 mmHG: Yes New Acute Mental Status Change: No Is the patient on CPAP, BIPAP,: No Physician Orders Chest Portable (10/25/25 09:06) Accucheck (10/25/25 09:06) Blood Culture (10/25/25 09:06) Cefepime 1gm/50ml (Maxipime 1gm/50ml) (10/25/25 09:15) Notify Md If Map <65 Or Bp<90 (10/25/25 09:06) If Map<65 Start Vasopressor (10/25/25 09:06) Sepsis Reassesment After Fluid (10/25/25 10:06) Sodium Chloride 0.9% (10/25/25 10:45) Admit (10/25/25 12:13) Oxygen By Nasal Cannula (10/25/25 12:13) Stat Ekg For Chest Pain (10/25/25 12:13) Notify Md Of Changes From Base (10/25/25 12:13) Freelance Court Reporter For 24 Hours (10/25/25 12:13) Emergency Dysrhythmia Protocol (10/25/25 12:13) Ceftriaxone 1gm/50ml (Rocephin) (10/26/25 09:00) Azithromycin 500mg/250ml (Zithromax 500m (10/26/25 10:00) Chest Without Contrast (10/25/25 12:13) *Dr. [facility] -Da Lori (10/25/25 12:13) Echo 2d Mode Cardiac Dop (10/25/25 12:13) Ondansetron Hcl (Zofran) (10/25/25 12:15) * Swallow Request (10/25/25 12:13) Pureed (10/25/25 Lunch) Cardiac Diet-2gna,Lofat,Lochol (10/25/25 Lunch) Sodium Chloride 0.9% (10/25/25 12:15) Ct L Foot Wo Contrast (10/25/25 12:13) Ceftriaxone 1gm/50ml (Rocephin) (10/25/25 15:00) Urinalysis (10/25/25 12:13) Platelet Monitoring (10/25/25 12:32) Vte Protocol Initiated (10/25/25 12:32) Heparin Per Standardized Proce (10/25/25 12:32) Discontinue All Im Injections (10/25/25 12:32) PTPTT (10/25/25 12:32) Heparin Drip/D5w 100units/Ml (10/25/25 12:45) Vital Signs Date Time Temp Pulse Resp B/P (MAP) Pulse Ox O2 Delivery O2 Flow Rate FiO2 10/25/25 11:40 99.2 108 18 104/45 (64) 98 99.2 10/25/25 10:00 99.9 106 22 114/28 (56) 99 99.9 10/25/25 09:16 109 10/25/25 08:58 101.7 130 13 115/64 84 101.7 Laboratory Tests Test 10/25/25 09:25 Lactic Acid Level 1.9 mmol/L (0.4-2.0) White Blood Count 14.2 10^3/uL (4.4-10.8) H Medications Medications Dose Ordered Sig/Florentin Route Start Time Stop Time Status Last Admin Dose Admin Azithromycin 250 ml @ 125 mls/hr ONCE ONCE IV 10/25/25 09:15 10/25/25 11:14 DC 10/25/25 10:50 125 MLS/HR Cefepime HCl 50 ml @ 12.5 mls/hr ONCE ONCE IV 10/25/25 09:15 10/25/25 13:14 10/25/25 10:00 12.5 MLS/HR Sodium Chloride 1,000 ml @ 1,000 mls/hr Q1H ONCE IV 10/25/25 10:45 10/25/25 11:44 DC 10/25/25 10:53 1,000 MLS/HR Assessment/Plan Assessment/Plan Acute hypoxic respiratory failure likely due to pneumonia Pneumonia likely due to Gram +/- bacteria Septic shock likely from pneumonia Rule out metastasis from melanoma - IV antibiotics vanc+ ceftriaxone + azithromycin - judicious use of IV fluids since the patient is ESRD - CT chest pending - PE less likely since modified wells score<4 Congestive heart failure, likely HFrEF Atrial fibrillation, likely new onset ?Pericardial effusion - echocardiogram pending - last echocardiogram done in 2019 showed LVEF 45% with global hypokinesis with small pericardial effusion - no anticoagulation since the patient is anemic and reportedly has rectal bleeding - like no rate control since the patient's sepsis End-stage renal disease on dialysis MWF - nephrology consulted - monitor electrolytes ?Rectal Bleeding h/o colonoscopy status post polypectomy - IV Protonix - stool occult blood pending PUD prophylaxis: Protonix DVT prophylaxis: Held because patient is anemic and reports rectal bleeding Goals of care discussed with the patient and his grandson at bedside for over 25 minutes. Full code Critical care spent: 59 minutes Plan discussed with Dr. Bell Plan discussed with: Patient, Other (Grandson, RN) My Orders Orders - PAOLO PACHECO RESIDENT Procedure Category Date Status Time Admit ADMIT 10/25/25 Transmitted 12:13 Oxygen By Nasal RT 10/25/25 Transmitted Cannula 12:13 Stat Ekg For Chest [facility] 10/25/25 In Process Pain 12:13 Notify Of Changes [facility] 10/25/25 In Process From Base 12:[address] Reporter For [facility] 10/25/25 In Process 24 Hours 12:13 Emergency Dysrhythmia [facility] 10/25/25 In Process Protocol 12:13 Ceftriaxone 1gm/50ml PHA 10/26/25 Logged (Rocephin) 09:00 Azithromycin PHA 10/26/25 Logged 500mg/250ml 10:[address] 10/25/25 Logged 12:13 *Dr. Maricruz Vidales -Da CONS 10/25/25 Transmitted Lori 12:13 Echo 2d Mode Cardiac US 10/25/25 Logged DOP 12:13 Ondansetron Hcl PHA 10/25/25 Logged (Zofran) 12:15 * Swallow Request ST 10/25/25 Transmitted 12:13 Pureed DIET 10/25/25 Transmitted Lunch Cardiac DIET 10/25/25 Transmitted Diet-2gna,Lofat,Lochol Lunch Sodium Chloride 0.9% PHA 10/25/25 Logged 12:15 Ct L Foot Wo Contrast CT 10/25/25 Logged 12:13 Ceftriaxone 1gm/50ml PHA 10/25/25 Logged (Rocephin) 15:00 Urinalysis LAB 10/25/25 Logged 12:13 Platelet Monitoring [facility] 10/25/25 Transmitted 12:32 Vte Protocol Initiated [facility] 10/25/25 Transmitted 12:32 Heparin Per [facility] 10/25/25 Transmitted Standardized Proce 12:32 Discontinue All Im [facility] 10/25/25 Transmitted Injections 12:32 PTPTT LAB 10/25/25 Transmitted 12:32 Heparin Drip/D5w LOCATED [facility] 10/25/25 Transmitted 100units/Ml 12:45 Date of Service: Oct 25, 2025 Billing Provider: MARCOS BELL MD Common Visit Codes: [id number] CARE 30-74 MIN PAOLO PACHECO RESIDENT Oct 25, 2025 13:36
--- NOTE | 2025-10-25 13:40 | DVH ---
Procedure: CT CHEST WITHOUT CONTRAST Reason for study/Clinical History: SOB, pneumonia, mets h/o malignant melanoma Comparison Study: None TECHNIQUE: Multidetector CT of the chest was performed from the lung apices to the upper abdomen without the use of intravenous contract. Axial, coronal and sagittal multiplanar reformats were performed. Radiation Dose Information: CT Dose: CTDI volume is 13.9 mGy. Dose-length product is 515 mGy*cm The dose indicators for CT are the volume Computed Tomography (CT) Dose Index (CTDIvol) and the Dose Length Product (DLP), and are measured in units of mGy and mGy-cm, respectively. These indicators are not patient dose, but values generated from the CT scanner acquisition factors. The report includes radiation exposure data for exposures received during this examination. FINDINGS: Lower neck: Unremarkable. Lungs: Diffuse increased interstitial prominence, diffuse ground-glass increased attenuation and mild interlobular septal thickening. Bilateral lower lobe compressive atelectasis. Peribronchial thickening in the right upper lobe. Heart/Vascular Structures: Cardiomegaly. Coronary artery calcifications. Vascular calcifications of the aorta. Lymph Nodes: No adenopathy. Pleura: Small bilateral pleural effusions, [id number]. Musculoskeletal: Multilevel degenerative changes of the spine. Soft tissues: Normal. Upper abdomen: Limited portions of the upper abdomen are unremarkable. IMPRESSION: Cardiomegaly with findings of pulmonary edema and small bilateral pleural effusions. Bilateral lower lobe compressive atelectasis. Peribronchial thickening in the right upper lobe may be infectious or inflammatory. This measures 1.1 cm. Recommend repeat imaging after treatment to ensure complete resolution. Given history of cancer, metastatic lesion is not completely excluded. Radiation optimization: All CT scans at this facility use at least one of these dose optimization techniques: automated exposure control mA and/or kV adjustment per patient size (includes targeted exams where dose is matched to clinical indication) or iterative reconstruction.
--- NOTE | 2025-10-25 13:45 | DVH ---
EXAMINATION: CT CT L FOOT WO CONTRAST INDICATION: r/o left great toe osteomyelitis COMPARISON: None TECHNIQUE: CT of the left foot was performed with contrast. Volume transverse images were obtained reconstructed in multiple planes using bone and soft tissue algorithms. Radiation Dose Information: CT Dose: CTDI volume is 7.8 mGy. Dose-length product is 208 mGy*cm Findings/ IMPRESSION: Diffuse vascular atherosclerotic disease. Nonvisualization of flow in the dorsalis pedis artery. Flow is maintained to the foot via collaterals. Diffuse subcutaneous soft-tissue edema and swelling throughout the foot; possibly cellulitis. No abscess or fluid collection. No definite CT findings of osteomyelitis. MRI can be obtained to further evaluate if clinically indicated.
--- NOTE | 2025-10-25 15:35 | DVHINCON2 ---
Date of service: Oct 25, [address] Kamara Reason for Consultation End-stage renal disease History of Present Illness 80-year-old patient with significant history of end-stage renal disease on hemodialysis Wednesday with last dialysis yesterday, hypertension who yesterday was noticed to have irregular heart rate and was told to come to the emergency room if his symptoms persist or heart rate was more than 110 who presents to the hospital with shortness of breath since yesterday after dialysis as well as generalized weakness and decreased appetite. Per report patient also had some bloody stools for few days since colonoscopy was done about three weeks ago. Patient was found to have pulse oximetry of 82% on room air he denies cough chills but had fever in the ER. He was noticed to have AFib. Chest x-ray showed multifocal infiltrates Cellulitic changes on CT of the foot CT chest showed peribronchial thickening suspicious for infection versus metastatic disease Past Medical History Medical history: Hypertension, ESRD on dialysis MWF, melanoma Past Surgical History Surgical history: Left upper arm fistula, polypectomy Allergies: Coded Allergies: NO KNOWN ALLERGIES (Unverified , 02/04/20) Home Meds Active Scripts Vancomycin Hcl (Vancomycin Po) 125 Mg So, 125 MG PO QID, #40 ML Prov:JACKY MCDONALD MD 03/13/20 Enalapril Maleate (Enalapril Maleate) 2.5 Mg Tab, 2.5 MG PO Q12HR for 30 Days, #60 TAB Prov:DIAMOND PEACE MD 02/14/20 Carvedilol (COREG) 3.125 Mg Tab, 3.125 MG PO Q12HR for 30 Days, #60 TAB Prov:DIAMOND PEACE MD 02/14/20 Reported Medications Sevelamer Hydrochloride (Renagel) 800 Mg Tab, 1600 MG PO TID, TAB 02/05/20 Esomeprazole Magnesium (Esomeprazole Magnesium Dr) 40 Mg Cap, 40 MG PO DAILY, CAP 02/05/20 B-Complex W/ C & Folic Acid (Nephro-Roger Rx) 1 Tab Tb, 1 TAB PO DAILY, TAB 02/05/20 Current Medications Current Medications Medications (Trade) Dose Ordered Sig/Florentin Route PRN Reason Start Time Stop Time Status Last Admin Ceftriaxone Sodium 50 ml @ 100 mls/hr DAILY@09 IV 10/26/25 09:00 Azithromycin 250 ml @ 125 mls/hr DAILY IV 10/26/25 10:00 Ondansetron HCl (Zofran) 4 mg Q6HPRN PRN IV NAUSEA / VOMITING 10/25/25 12:15 Heparin Sodium/ Dextrose 250 ml @ 12.69 mls/ hr [id number] IV 10/25/25 12:45 10/25/25 12:46 DC Pantoprazole Sodium (Protonix) 40 mg DAILY IV 10/26/25 10:00 Norepinephrine Bitartrate 250 ml @ 3.75 mls/hr Q24H IV 10/25/25 15:15 UNV Family History: Diabetes mellitus G8 MOTHER G8 FATHER G8 SISTER G8 SISTER G8 SISTER G8 SISTER FH: pneumonia G8 BROTHER Social History Denies smoking alcohol or drug abuse Review of Systems HEENT: Oral mucosa dry Neck no JVD Cardiovascular: Denies for chest pain denies orthopnea or PND Respiratory: Positive for shortness of breath or cough Gastrointestinal: Denies for nausea vomiting, positive for rectal bleed Musculoskeletal: Denies myalgias Neurological: Denies focal weakness Dermatological: Denies any rash Positive for generalized weakness The rest of the review of systems were reviewed pertinent positives and pertinent negatives are as per HPI up to 12 points review of systems H&P Exam Vital Signs/I&O Vital Sign Date Time Temp Pulse Resp B/P (MAP) Pulse Ox O2 Delivery O2 Flow Rate FiO2 10/25/25 11:40 99.2 108 18 104/45 (64) 98 99.2 Physical Exam HEENT: No evidence of JVD, no oral ulcers. Pulmonary: Diminished on auscultation bilaterally Distended veins in the upper chest Cardiovascular irregular Abdomen: Bowel sounds positive, soft no rebound tenderness Skin: No rash Neurological: Alert, oriented, no focal weakness Extremities: Mild erythema of the lower legs with trace edema Access av fistula positive bruit and thrill Labs/Diagnostic Data Labs/Diagnostic Data Laboratory Tests Test 10/25/25 09:25 Range/Units White Blood Count 14.2 H 4.4-10.8 10^3/uL Red Blood Count 2.73 L 4.5-5.90 10^6/uL Hemoglobin 8.0 L 13.5-17.5 g/dL Hematocrit 23.9 L 41.0-53.0 % Mean Corpuscular Volume 87.7 80.0-100.0 fL Mean Corpuscular Hemoglobin 29.2 28.0-32.0 pg Mean Corpuscular Hemoglobin Concent 33.3 32.0-36.0 g/dL Red Cell Distribution Width 17.4 H 11.8-14.3 % Platelet Count 313 140-450 10^3/uL Mean Platelet Volume 8.4 6.9-10.8 fL Neutrophils (%) (Auto) 86.1 H 37.0-80.0 % Lymphocytes (%) (Auto) 4.4 L 10.0-50.0 % Monocytes (%) (Auto) 8.3 0.0-12.0 % Eosinophils (%) (Auto) 0.6 0.0-7.0 % Basophils (%) (Auto) 0.6 0.0-2.0 % Neutrophils # (Auto) 12.3 H 1.6-8.6 10 ^3/uL Lymphocytes # (Auto) 0.6 0.4-5.4 10 ^3/uL Monocytes # (Auto) 1.2 0-1.3 10 ^3/uL Eosinophils # (Auto) 0.1 0-0.8 10 ^3/uL Basophils # (Auto) 0.1 0-0.2 10 ^3/uL Nucleated Red Blood Cells 0.0 % Prothrombin Time 13.0 H 9.3-11.8 sec Prothrombin Time INR 1.25 H 0.9-1.15 Activated Partial Thromboplast Time 32.8 24.5-34.5 SEC D-Dimer, Quantitative 3.41 H 0.0-0.49 mg/L FEU Sodium Level 138 136-145 mmol/L Potassium Level 4.0 3.5-5.1 mmol/L Chloride Level 96 L 98-107 mmol/L Carbon Dioxide Level 30 20-31 mmol/L Anion Gap 12 5-15 Blood Urea Nitrogen 42 H 9-23 mg/dL Creatinine 7.13 H 0.700-1.30 mg/dL Glomerular Filtration Rate Calc 7 >90 mL/min BUN/Creatinine Ratio 5.9 L 10.0-20.0 Serum Glucose 104 74-106 mg/dL Lactic Acid Level 1.9 0.4-2.0 mmol/L Calcium Level 9.7 8.7-10.4 mg/dL Total Bilirubin 0.6 0.2-1.0 mg/dL Aspartate Amino Transferase (AST) 39 13-40 U/L Alanine Aminotransferase (ALT) 23 7-40 U/L Alkaline Phosphatase 107 46-116 U/L Total Protein 6.8 5.7-8.2 g/dL Albumin 3.2 3.2-4.8 g/dL Chest x-ray with pulmonary vascular congestion multifocal disease CT chest peribronchial lesion Assessment Assessment: 1. Severe sepsis 2. Multifocal pneumonia 3. End-stage renal disease on hemodialysis Wednesday 4. Acute hypoxic respiratory failure 5. New onset AFib RVR 6. Anemia 7. Cellulitis 8. Hyperkalemia managed with dialysis 9. Pericardial effusion Plan: Hemodialysis tomorrow Antibiotics, cultures AFib management as per Cardiology Oxygen supplementation to keep pulses more than 90% Low-potassium diet, renal diet Cardiology consult Levophed pressor support Nima for goal hemoglobin 10 to 11 grams/deciliter Thank you very much for allowing us to participate in the care of this patient please contact if you have any questions. Plan discussed with: Patient, Other LINDA NICOLE MD Oct 25, 2025 15:35
[2025-10-25] MEDS: SODIUM CHLORIDE 0.9% 250 ML IV ONE (16:00)
[2025-10-25] MEDS: NOREPINEPHRINE 8 MG/250ML KIT 250 ML IV ONE (16:00)
[2025-10-25] MEDS: NOREPINEPHRINE 8 MG/250ML KIT 250 ML IV SCH (16:00)
--- NOTE | 2025-10-25 16:11 | DVHSR ---
APPROVED REPORT EXAM: Two-dimensional and M-mode echocardiogram with Doppler and color Doppler. Blood Pressure: 104/45 mmHg INDICATION SOB, Previous EF 45%. RISK FACTORS Height: 5'2, Weight: 155 DIMENSIONS LVDd 5.9 (3.8-5.7cm) LA (2D) 4.5 (1.9-4.0cm) Aortic Root 2.9 (2.0-3.7cm) LVDs 3.7 (2.5-4.0cm) LA (MM) (1.9-4.0cm) Aortic Cusp Exc 1.0 (1.5-2.0cm) EF (%) 67.0 (55-70%) Rt. Atrium 4.4 (1.9-4.0cm) Asc. Aorta 3.6 cm IVSd 1.4 (0.7-1.1cm) RV (D) (1.8-2.4cm) PWd 1.4 (0.7-1.1cm) Mitral Valve Mitral Mitral Stenosis E wave 1.68m/s MV Mean GR. mmHg A wave 0.94m/s MV Peak GR. 136mmHg E/A ratio 1.8 2D MVA cm2 DECEL Time 275ms PRESS 1/2 Time ms Aortic Valve Aortic Valve Aortic Stenosis V1 1.13m/s AO Mean GR. mmHg LVOT Diameter 1.7 (1.8-2.4cm) Doppler BRENTON 0.00cm2 AI P 1/2 Time 516.68ms Pulmonic Valve V2 1.17m/s Conclusion lvef 50% by visual estimate mild LVH restricted LV filling RV enlarged, biatrial enlargement aortic stenosis, restricted motion, mean gradient not accurate, cannot rule out sever or low flow low gradient on this study moderate to severe mitral regurg eccentric cannot assess for mitral stenosis, i suspect there is significatn MS triival to small pericardial effusion, no HD compromise significant appearing L sided pleural effusion
[2025-10-25] MEDS ORDERED: VANCOMYCIN PER PHARMACY 0 MG IV SCH (16:15)
[2025-10-25] MEDS: PANTOPRAZOLE 40 MG/10 ML VIAL INJ IV ONE (16:17)
[2025-10-25 16:25] LABS: Base Excess 7.5 mmol/L (-2.0-3.0)
[2025-10-25 17:24] LABS: Hematocrit 21.3 % (41.0-53.0)
[2025-10-25 17:34] LABS: Hemoglobin 7.0 g/dL (13.5-17.5)
[2025-10-25] MEDS: VANCOMYCIN 500mg/100mL 100 ML IV ONE (17:57)
[2025-10-25] MEDS: VASOPRESSIN 20 UNITS in SODIUM CHL 0.9% 99 ML IV SCH (18:28)
[2025-10-26] VITALS (38 sets, daily range): BP systolic 102–160; BP diastolic 30–78; PULSE 41–107; RESP 12–24; TEMP 97.6–99; O2SAT 93–100
[2025-10-26 07:12] LABS: Hemoglobin 7.6 g/dL (13.5-17.5); Mean Corpuscular Hemoglobin 32.1 pg (28.0-32.0); Nucleated Red Blood Cells % 0.0 %
[2025-10-26 07:15] LABS: Hematocrit 21.9 % (41.0-53.0); Mean Corpuscular Volume 92.5 fL (80.0-100.0)
[2025-10-26 07:21] LABS: Calcium 9.4 mg/dL (8.7-10.4); Potassium 4.4 mmol/L (3.5-5.1); Sodium 137 mmol/L (136-145)
[2025-10-26 07:22] LABS: Anion Gap 10 (5-15); Carbon Dioxide 30 mmol/L (20-31)
[2025-10-26 07:27] LABS: BUN/Creatinine Ratio 6.2 (10.0-20.0); Blood Urea Nitrogen 50 mg/dL (9-23); Chloride 97 mmol/L (98-107); Glucose 118 mg/dL (74-106)
[2025-10-26] MEDS: AZITHROMYCIN 500MG/250ML 250 ML IV SCH (10:12)
[2025-10-26] MEDS: PANTOPRAZOLE 40 MG/10 ML VIAL INJ IV SCH (10:22)
[2025-10-26] MEDS: SODIUM CHL 0.9% 1000 ML BAG XX ONE (13:11)
--- NOTE | 2025-10-26 13:19 | DVH ---
LEFT Upper Extremity Venous Duplex Clinical History: dvt Comparison: None Findings: Duplex Doppler evaluation of the venous system of the LEFT lower neck and upper extremity including color Doppler and spectral/pulsed waveform analysis was performed. The internal jugular vein demonstrates appropriate compressibility and waveform variability. The subclavian vein is patent on color Doppler evaluation without intraluminal thrombus and demonstrates waveform variability. The visualized portion of the brachiocephalic vein is patent on color Doppler evaluation without intraluminal thrombus and demonstrates waveform variability. The axillary vein demonstrates appropriate compressibility and waveform variability. The brachial veins demonstrate appropriate compressibility and patency on Doppler evaluation. The basilic vein demonstrates appropriate compressibility and patency on Doppler evaluation. The cephalic vein demonstrates appropriate compressibility and patency on Doppler evaluation. Impression: No venous thrombus identified in the LEFT upper extremity vessels evaluated above. If clinical concern/symptoms persist or worsen, short-interval follow-up study is suggested.
--- NOTE | 2025-10-26 13:35 | DVHPN2 ---
Progress Note - Dictate Date Seen: Oct 26, 2025 Medical Necessity Reason Pt with a Central, PICC or Fol: No Subjective Patient is feeling much better his son is at bedside. vital signs Vital Sign Date Time Temp Pulse Resp B/P (MAP) Pulse Ox O2 Delivery O2 Flow Rate FiO2 10/26/25 12:15 80 24 123/45 (71) 99 10/26/25 07:15 Nasal Cannula* 2 10/26/25 07:15 98.8 98.8 Total Intake and Output 10/25/25 10/25/25 10/26/25 15:00 23:00 07:00 Intake Total 550 ml 409 ml 986 ml Balance 550 ml 409 ml 986 ml medications Current Medications Medications Dose Ordered Sig/Florentin Route Start Time Stop Time Status Last Admin Dose Admin Ceftriaxone Sodium 50 ml @ 100 mls/hr DAILY@09 IV 10/26/25 09:00 10/26/25 09:13 100 MLS/HR Azithromycin 250 ml @ 125 mls/hr DAILY IV 10/26/25 10:00 10/26/25 10:12 125 MLS/HR Ondansetron HCl 4 mg Q6HPRN PRN IV 10/25/25 12:15 Pantoprazole Sodium 40 mg DAILY IV 10/26/25 10:00 10/26/25 10:22 40 MG Norepinephrine Bitartrate 250 ml @ 3.75 mls/hr Q24H IV 10/25/25 15:15 10/25/25 16:00 3.75 MLS/HR Vancomycin HCl 0 ml @ 0 mls/hr PER PHARMACY IV 10/25/25 16:15 Heparin Sodium (Porcine) 5,000 units Q8HR SC 10/26/25 14:00 objective HEENT: No evidence of JVD, no oral ulcers. Pulmonary: Diminished on auscultation bilaterally Cardiovascular S1-S2, no S3 or S4 Abdomen: Bowel sounds positive, soft no rebound tenderness Skin: No rash Neurological: Alert, oriented, no focal weakness Extremities: Trace edema Left upper arm AV fistula positive bruit and thrill laboratory and microbiology Laboratory Tests 10/26/25 06:20 Test 10/26/25 06:20 Range/Units Serum Glucose 118 H 74-106 mg/dL Assessment/Plan Assessment: 1. Severe sepsis 2. Multifocal pneumonia 3. End-stage renal disease on hemodialysis Wednesday 4. Acute hypoxic respiratory failure 5. New onset AFib RVR 6. Anemia 7. Cellulitis 8. Hyperkalemia managed with dialysis 9. Pericardial effusion Plan: Hemodialysis today, aim UF 2 L Broad-spectrum antibiotics Cultures are pending AFib management as per Cardiology Oxygen supplementation to keep pulses more than 90% Low-potassium diet, renal diet Cardiology consult Off Levophed currently Nima for goal hemoglobin 10 to 11 grams/deciliter Thank you very much for allowing us to participate in the care of this patient please contact if you have any questions. Plan discussed with: Patient, Son LINDA NICOLE MD Oct 26, 2025 13:35
--- NOTE | 2025-10-26 13:42 | DVH ---
Upper Extremity Venous Duplex Clinical History: Pain Comparison: None Technique: Duplex Doppler evaluation of the venous system of the LEFT lower neck and upper extremity including color Doppler and spectral/pulsed waveform analysis was performed. Findings: Left arteriovenous fistula. No thrombus visualized. Subcutaneous edema noted. The internal jugular vein demonstrates appropriate compressibility and waveform variability. The subclavian vein is patent on color Doppler evaluation without intraluminal thrombus and demonstrates waveform variability. The visualized portion of the brachiocephalic vein is patent on color Doppler evaluation without intraluminal thrombus and demonstrates waveform variability. The axillary vein demonstrates appropriate compressibility and waveform variability. The brachial veins demonstrate appropriate compressibility and patency on Doppler evaluation. Left brachial inflow to graft measures 204.8 cm/sec blood flow. Diastolic velocity 108.7 cm/sec. VF diameter 0.95 cm. Anastomosis blood flow 297.4 cm/sec peak systolic velocity. End-diastolic velocity 164.4 cm/sec Outflow velocity proximally 150.4 cm/sec peak systolic flow. End-diastolic flow 67.7 cm/sec Outflow velocity mid 136.6 cm/sec peak systolic velocity. End-diastolic velocity 79.8 cm/sec Outflow velocity distal segment: Peak systolic velocity 133.8 cm/sec. End- diastolic velocity 64.1 cm 2nd The basilic vein demonstrates appropriate compressibility and patency on Doppler evaluation. The cephalic vein demonstrates appropriate compressibility and patency on Doppler evaluation. Impression: 1. No venous thrombus identified in the LEFT upper extremity vessels evaluated above. 2. If clinical concern/symptoms persist or worsen, short-interval follow-up study is suggested. 3. NO THROMBUS VISUALIZED. 4. Velocities in the proximal mid and distal graft noted above. 5. Left brachial cephalic venous fistula appears patent and negative for thrombus.
[2025-10-26] MEDS: HEPARIN SODIUM (PORCINE) 5000 UNITS/ML 1ML VIAL SC SCH (14:00)
--- NOTE | 2025-10-26 15:51 | ECG ---
[facility] Test Date: 2025-10-26 Test Time: 10:45:03 Pat Name: LALITO RODRIGUEZ Department: [facility] ED Room: 0297T Gender: M [employer]: codi : 1945 Requested By: LENARD COFFEY Order Number: [id number] Reading MD: Geronimo Ambrosio Measurements Intervals [place] Rate: 61 P: 0 [place]: 0 QRS: 41 QRSD: 104 T: 4 QT: 375 QTc: 378 Interpretive Statements Atrial fibrillation Borderline T wave abnormalities Electronically Signed On 10-30-2025 14:58:07 PST by Geronimo Ambrosio Please click the below link to view image of tracing.
[2025-10-26] MEDS: VANCOMYCIN 750MG KIT 100 ML IV ONE (18:06)
[2025-10-26] MEDS: SEVELAMER 800 MG TAB PO SCH (18:06)
--- NOTE | 2025-10-26 19:03 | DVHPNRES ---
Progress Note Date Seen: Oct 26, 2025 Resident Creating Document: LENARD COFFEY RESIDENT Medical Necessity Reason Pt with a Central, PICC or Fol: Yes The following are medically ne: Central Line Subjective Review of Systems Owen Ames is a 80-year-old with past medical history of hypertension, ESRD on dialysis Wednesday and possible thyroid disorder who came to the ED with a chief complaint of shortness of breath. The patient mentioned he started having shortness of breath 1 week back which got progressively worse. The patient underwent dialysis on Wednesday were 3 L fluid was removed, without any events. After he went home from the dialysis he started feeling his shortness of breaths getting worse. He denied any chest pain, cough, phlegm, fever or chills. The patient mentions noticing blood in the stools stools being darker colored since 3 weeks after he got a colonoscopy and a polyp was removed. When he was brought to the hospital, patient was septic and EKG showed atrial fibrillation. The patient also had to be put on vasopressors 0.03 overnight, which was stopped in the morning today as his blood pressure stabilized. Nephrology evaluated the patient and patient underwent hemodialysis today, without any complications. Past medical history:hypertension, ESRD on dialysis Wednesday and possible thyroid disorder .?melanoma Past surgical history: Left upper arm AV fistula Home medications: Amlodipine, carvedilol, enalapril, sevelamer Social & Personal history: Lives at home with family, denies any smoking, alcohol, drug use Allergies: No known allergies Patient seen and examined at bedside. Patient is alert and oriented to time, place person and responding to all questions. Eyes: No Pain, No Vision change, No Conjunctivae inflammation, No Eyelid inflammation, No Redness ENT: No Ear pain, No Ear discharge, No Nose pain, No Nose discharge, No Nose congestion, No Mouth pain, No Mouth swelling, No Throat pain, No Throat swelling Cardiovascular: No Chest Pain, No Palpitations, No Orthopnea, No Paroxysmal No Dyspnea, No Edema, No Lt Headedness Respiratory: No Cough, No Dry, No Shortness of breath, No SOB with exertion, No Wheezing, No Hemoptysis, No Pleuritic Pain, No Sputum Gastrointestinal: No Nausea, No Vomiting, No Abdominal Pain, No Diarrhea, No Constipation, No Melena, No Hematochezia Genitourinary: No Dysuria, No Frequency, No Incontinence, No Hematuria, No Retention Objective vital signs Vital Sign Date Time Temp Pulse Resp B/P (MAP) Pulse Ox O2 Delivery O2 Flow Rate FiO2 10/26/25 16:50 99.0 107 20 140/78 (98) 95 99.0 10/26/25 16:50 Nasal Cannula* 2 28 Total Intake and Output 10/25/25 10/25/25 10/26/25 15:00 23:00 07:00 Intake Total 550 ml 409 ml 986 ml Balance 550 ml 409 ml 986 ml medications Current Medications Medications Dose Ordered Sig/Florentin Route Start Time Stop Time Status Last Admin Dose Admin Ceftriaxone Sodium 50 ml @ 100 mls/hr DAILY@09 IV 10/26/25 09:00 10/26/25 09:13 100 MLS/HR Azithromycin 250 ml @ 125 mls/hr DAILY IV 10/26/25 10:00 10/26/25 10:12 125 MLS/HR Ondansetron HCl 4 mg Q6HPRN PRN IV 10/25/25 12:15 Pantoprazole Sodium 40 mg DAILY IV 10/26/25 10:00 10/26/25 10:22 40 MG Vancomycin HCl 0 ml @ 0 mls/hr PER PHARMACY IV 10/25/25 16:15 Heparin Sodium (Porcine) 5,000 units Q8HR SC 10/26/25 14:00 Carvedilol 3.125 mg Q12HR PO 10/26/25 22:00 Sevelamer HCl 1,600 mg TIDWM PO 10/26/25 18:00 10/26/25 18:06 1,600 MG Examination General Appearance: Cooperative. Well developed. Well nourished. NAD. Patient has a right femoral central line. Head Exam: Normal inspection Neck Exam: Normal inspection. Non-tender. Normal alignment Pulmonary/Respiratory: Chest non-tender. Clear bilateral breath sounds, no crackles, no wheezing. Cardiovascular/Chest: Regular rate and rhythm. No murmurs. No JVD. Peripheral Pulses: 2+ Radial (R). 2+ Radial (L). 2+ Pedal (R). 2+ Pedal (L) Abdominal Exam: Normal bowel sounds. Soft. normal abdomen, no visible veins, Nontender. No hepatospenomegaly. No masses Ankle Exam: Negative ankle edema Lower extremities: Negative lower extremity edema, 2 x 2 cm dark area on left great toe Upper extremity: Av fistula with palpable thrill on left inner arm, with redness around it, 3+ pitting edema of left upper extremity and 1+ edema of right upper extremity, engorged veins seen on the left shoulder area Neuro/Mental Status: A&O x4. Coherent. Thoughts/Psych: Normal thought pattern. Appropriate mood and affect. Good judgement and insight Skin Exam: Normal inspection. Normal color. Warm. Dry laboratory and microbiology Laboratory Tests 10/26/25 06:20 Test 10/26/25 06:20 Range/Units Serum Glucose 118 H 74-106 mg/dL Microbiology Date/Time Source Procedure Growth Status 10/25/25 09:40 Blood Blood Culture - Preliminary Resulted Labs and/or images reviewed: Labs reviewed by me, Image(s) reviewed by me Problem List/Assessment/Plan Problem List/Assessment/Plan # Septic shock, likely from pneumonia # Acute hypoxic respiratory failure likely due to pneumonia # Pneumonia likely due to Gram +/- bacteria # Rule out metastasis from melanoma - IV antibiotics vanc+ ceftriaxone + azithromycin - CT chest- cardiomegaly, pulmonary edema, bilateral effusions - PE less likely since modified wells score<4 - blood culture shows Gram-positive cocci clusters - D-dimer 3.41 - lactic acid 1.9 >1.0 - chest x-ray shows pulmonary vascular congestion # Congestive heart failure, likely HFrEF # Atrial fibrillation, likely new onset # Pericardial effusion, ruled out - echocardiogram EF 50%, mild LVH, biatrial enlargement,MS suspected - last echocardiogram done in 2019 showed LVEF 45% with global hypokinesis with small pericardial effusion - no anticoagulation since the patient is anemic and reportedly has rectal bleeding - no rate control since the patient has sepsis # normocytic normochromic anemia, possibly of chronic disease, S/P 1 PRBC - monitor H&H - transfuse if hemoglobin is less than 7 # End-stage renal disease on dialysis MWF - nephrology on board- hemodialysis today on 10/26/2025, 2L removed - monitor electrolytes # ?Rectal Bleeding - h/o colonoscopy status post polypectomy - IV Protonix - stool occult blood negative, repeat sample sent # Rule out DVT upper extremity # possible cellulitis left arm - No venous thrombus identified in the LEFT upper extremity vessels evaluated above. - ordered CT left upper extremity, pending # rule out osteomyelitis of left foot -left foot CT- Diffuse vascular atherosclerotic disease. Nonvisualization of flow in the dorsalis pedis artery. Flow is maintained to the foot via collaterals.Diffuse subcutaneous soft-tissue edema and swelling throughout the foot; possibly cellulitis. -podiatry consulted, pending evaluation PUD prophylaxis: Protonix DVT prophylaxis: Held because patient is anemic and reports rectal bleeding Goals of care discussed with the patient and his grandson at bedside for over 25 minutes.Full code Plan discussed with Dr. Carey Plan discussed with: Patient, Son My Orders My Orders Orders - LENARD COFFEY RESIDENT Procedure Category Date Status Time Mrsa Screen MAXIM 10/26/25 In Process 10:08 Heparin Sodium PHA 10/26/25 In Process (Porcine) 14:00 Lt Upper Dvt US 10/26/25 Resulted 11:48 Lt Upper Ext Art US 10/26/25 Resulted Duplex 12:48 Carvedilol Tablet PHA 10/26/25 In Process (Coreg Tablet) 22:00 Sevelamer (Renagel) PHA 10/26/25 In Process 18:00 Transfer Orders XFER 10/26/25 Transmitted 16:13 *Podiatry Consult CONS 10/26/25 Transmitted Musson(Dvmg) 16:43 Date of Service: Oct 26, 2025 Billing Provider: MARCOS CAREY MD Common Visit Codes: [id number] INP/OBS CARE(HIGH) LENARD COFFEY RESIDENT Oct 26, 2025 19:02
[2025-10-26] MEDS: EPOETIN ALFA-EPBX 10,000 UNIT/1ML VIAL SC ONE (21:42)
[2025-10-26] MEDS: CARVEDILOL 3.125 MG TAB PO SCH (22:00)
[2025-10-27] VITALS (7 sets, daily range): BP systolic 94–126; BP diastolic 39–68; PULSE 64–80; RESP 16–18; TEMP 97.3–98.4; O2SAT 97–100
[2025-10-27 06:44] LABS: Hematocrit 24.0 % (41.0-53.0); Hemoglobin 8.1 g/dL (13.5-17.5); Mean Corpuscular Hemoglobin 29.5 pg (28.0-32.0); Mean Corpuscular Volume 87.8 fL (80.0-100.0); Nucleated Red Blood Cells % 0.0 %
[2025-10-27 06:59] LABS: Anion Gap 8 (5-15); Potassium 4.0 mmol/L (3.5-5.1); Sodium 138 mmol/L (136-145)
[2025-10-27 07:00] LABS: Calcium 9.0 mg/dL (8.7-10.4)
[2025-10-27 07:05] LABS: BUN/Creatinine Ratio 5.5 (10.0-20.0); Carbon Dioxide 32 mmol/L (20-31); Chloride 98 mmol/L (98-107); Glucose 93 mg/dL (74-106)
[2025-10-27 07:06] LABS: Blood Urea Nitrogen 27 mg/dL (9-23)
--- NOTE | 2025-10-27 15:05 | DVHPN2 ---
Progress Note - Dictate Date Seen: Oct 27, 2025 Medical Necessity Reason Pt with a Central, PICC or Fol: Yes The following are medically ne: Central Line Subjective Patient is feeling better vital signs Vital Sign Date Time Temp Pulse Resp B/P (MAP) Pulse Ox O2 Delivery O2 Flow Rate FiO2 10/27/25 13:00 97.7 64 16 106/62 (77) 97 97.7 10/27/25 08:10 Nasal Cannula* 2 28 Total Intake and Output 10/26/25 10/26/25 10/27/25 15:00 23:00 07:00 Intake Total 300 ml Balance 300 ml medications Current Medications Medications Dose Ordered Sig/Florentin Route Start Time Stop Time Status Last Admin Dose Admin Ceftriaxone Sodium 50 ml @ 100 mls/hr DAILY@09 IV 10/26/25 09:00 10/27/25 09:50 100 MLS/HR Azithromycin 250 ml @ 125 mls/hr DAILY IV 10/26/25 10:00 10/27/25 09:50 125 MLS/HR Ondansetron HCl 4 mg Q6HPRN PRN IV 10/25/25 12:15 Pantoprazole Sodium 40 mg DAILY IV 10/26/25 10:00 10/27/25 09:50 40 MG Vancomycin HCl 0 ml @ 0 mls/hr PER PHARMACY IV 10/25/25 16:15 Heparin Sodium (Porcine) 5,000 units Q8HR SC 10/26/25 14:00 Carvedilol 3.125 mg Q12HR PO 10/26/25 22:00 10/27/25 09:49 3.125 MG Sevelamer HCl 1,600 mg TIDWM PO 10/26/25 18:00 10/27/25 12:28 1,600 MG objective HEENT: No evidence of JVD, no oral ulcers. Pulmonary: Diminished on auscultation bilaterally Cardiovascular S1-S2, no S3 or S4 Abdomen: Bowel sounds positive, soft no rebound tenderness Skin: No rash Neurological: Alert, oriented, no focal weakness Extremities: Trace edema Left upper arm AV fistula positive bruit and thrill laboratory and microbiology Laboratory Tests 10/27/25 06:00 Test 10/27/25 06:00 Range/Units Serum Glucose 93 74-106 mg/dL Assessment/Plan Assessment: 1. Severe sepsis 2. Multifocal pneumonia 3. End-stage renal disease on hemodialysis Wednesday 4. Acute hypoxic respiratory failure, improving 5. New onset AFib RVR 6. Anemia 7. Cellulitis 8. Hyperkalemia managed with dialysis 9. Pericardial effusion Plan: Hemodialysis Wednesday Broad-spectrum antibiotics So far no growth on the cultures AFib management as per Cardiology Oxygen supplementation to keep pulses more than 90% Low-potassium diet, renal diet Cardiology consult Get out of bed and PT if okay with primary Nima for goal hemoglobin 10 to 11 grams/deciliter Patient is stable from Nephrology perspective Thank you very much for allowing us to participate in the care of this patient please contact if you have any questions. Plan discussed with: Patient, Son LINDA NICOLE MD Oct 27, 2025 15:05
[2025-10-27] MEDS: VANCOMYCIN 500mg/100mL 100 ML IV ONE (15:16)
--- NOTE | 2025-10-27 22:30 | DVHPN2 ---
Subjective The patient seen and examined at bedside. Still complains of pain of the left arm where the AV fistula is. Reviewed: Care Plan, H&P, Labs, Medications, Previous Orders, Radiology Changes from previous H/P or p: No Changes Objective Vitals Vital Signs Date Time Temp Pulse Resp B/P (MAP) Pulse Ox O2 Delivery O2 Flow Rate FiO2 10/27/25 22:12 75 113/48 10/27/25 17:00 97.4 18 97 97.4 10/27/25 08:10 Nasal Cannula* 2 28 Intake/Output Intake and Output 10/27/25 07:00 Intake Total 300 ml Balance 300 ml IV Total 300 ml General Appearance: Alert, Cooperative, No acute distress HEENT: Atraumatic, PERRLA, EOMI, Mucous membr. moist/pink Neck: Supple Lungs: Clear to auscultation, Normal air movement Cardiovascular: Regular rate, Normal S1, Normal S2, No murmurs, Gallops, Rubs Abdomen: Normal bowel sounds, Soft, No tenderness Neuro: Cranial nerves 3-12 NL Psych/Mental Status: Mental status NL Medications Current Medications Medications Dose Ordered Sig/Florentin Route Start Time Stop Time Status Last Admin Dose Admin Ceftriaxone Sodium 50 ml @ 100 mls/hr DAILY@09 IV 10/26/25 09:00 10/27/25 09:50 100 MLS/HR Azithromycin 250 ml @ 125 mls/hr DAILY IV 10/26/25 10:00 10/27/25 09:50 125 MLS/HR Ondansetron HCl 4 mg Q6HPRN PRN IV 10/25/25 12:15 Pantoprazole Sodium 40 mg DAILY IV 10/26/25 10:00 10/27/25 09:50 40 MG Vancomycin HCl 0 ml @ 0 mls/hr PER PHARMACY IV 10/25/25 16:15 Heparin Sodium (Porcine) 5,000 units Q8HR SC 10/26/25 14:00 10/27/25 15:23 5,000 UNITS Carvedilol 3.125 mg Q12HR PO 10/26/25 22:00 10/27/25 22:12 3.125 MG Sevelamer HCl 1,600 mg TIDWM PO 10/26/25 18:00 10/27/25 17:01 1,600 MG Laboratory Results Laboratory Tests 10/27/25 06:00 Chemistry Test 10/27/25 06:00 Calcium Level 9.0 mg/dL (8.7-10.4) Microbiology Microbiology Date/Time Source Procedure Growth Status 10/26/25 10:07 Nose MRSA Screen - Final Complete 10/25/25 09:40 Blood Blood Culture - Preliminary Resulted Labs and/or images reviewed: Labs reviewed by me Assessment/Plan Assessment/Plan # Septic shock, likely from pneumonia # Acute hypoxic respiratory failure likely due to pneumonia # Pneumonia likely due to Gram +/- bacteria # Rule out metastasis from melanoma - IV antibiotics vanc+ ceftriaxone + azithromycin - CT chest- cardiomegaly, pulmonary edema, bilateral effusions - PE less likely since modified wells score<4 - blood culture shows Gram-positive cocci clusters - D-dimer 3.41 - lactic acid 1.9 >1.0 - chest x-ray shows pulmonary vascular congestion # Congestive heart failure, likely HFrEF # Atrial fibrillation, likely new onset # Pericardial effusion, ruled out - echocardiogram EF 50%, mild LVH, biatrial enlargement,MS suspected - last echocardiogram done in 2019 showed LVEF 45% with global hypokinesis with small pericardial effusion - no anticoagulation since the patient is anemic and reportedly has rectal bleeding - no rate control since the patient has sepsis # normocytic normochromic anemia, possibly of chronic disease, S/P 1 PRBC - monitor H&H - transfuse if hemoglobin is less than 7 # End-stage renal disease on dialysis MWF - nephrology on board- hemodialysis today on 10/26/2025, 2L removed - monitor electrolytes # ?Rectal Bleeding - h/o colonoscopy status post polypectomy - IV Protonix - stool occult blood negative, repeat sample sent # Rule out DVT upper extremity # possible cellulitis left arm - No venous thrombus identified in the LEFT upper extremity vessels evaluated above. - ordered CT left upper extremity, pending # rule out osteomyelitis of left foot -left foot CT- Diffuse vascular atherosclerotic disease. Nonvisualization of flow in the dorsalis pedis artery. Flow is maintained to the foot via collaterals.Diffuse subcutaneous soft-tissue edema and swelling throughout the foot; possibly cellulitis. -podiatry consulted, pending evaluation Continue current management. PT to be out of bed and ambulate. PUD prophylaxis: Protonix DVT prophylaxis: Held because patient is anemic and reports rectal bleeding Goals of care discussed with the patient and his grandson at bedside for over 25 minutes.Full code Plan discussed with: Patient Date of Service: Oct 27, 2025 Billing Provider: MARCOS BELL MD Common Visit Codes: [id number] INP/OBS CARE(HIGH) MARCOS BELL MD Oct 27, 2025 22:30
[2025-10-28] VITALS (8 sets, daily range): BP systolic 109–149; BP diastolic 49–61; PULSE 58–73; RESP 16–18; TEMP 97–98.6; O2SAT 96–99
[2025-10-28 06:32] LABS: Hematocrit 24.2 % (41.0-53.0); Hemoglobin 7.9 g/dL (13.5-17.5); Mean Corpuscular Hemoglobin 28.7 pg (28.0-32.0); Mean Corpuscular Volume 87.9 fL (80.0-100.0); Nucleated Red Blood Cells % 0.1 %
--- NOTE | 2025-10-28 11:58 | MEDREC ---
DVH ASP Intervention Section I Assessment of apprpriate abx f: Community acquired PNA (Blood culture preliminary shows gram positive cocci in clusters with coagulase negative Staphylococcus in addition with MRSA nares negative => MRSA infection less likely. Please consider d/c vancomycin. Ceftriaxone + azithromycin provides good emriric coverage for CAP. Consider IV to PO option when clinically appropriate ) AMANDA HERNANDEZ [facility] RESIDENT Oct 28, 2025 11:58
--- NOTE | 2025-10-28 13:32 | DVHPN2 ---
Progress Note - Dictate Date Seen: Oct 28, 2025 Medical Necessity Reason Pt with a Central, PICC or Fol: Yes The following are medically ne: Central Line Subjective He denies palpitations vital signs Vital Sign Date Time Temp Pulse Resp B/P (MAP) Pulse Ox O2 Delivery O2 Flow Rate FiO2 10/28/25 10:00 77 103/48 10/28/25 09:00 97.3 18 96 97.3 10/27/25 20:00 Nasal Cannula* 2 28 Total Intake and Output 10/27/25 10/27/25 10/28/25 15:00 23:00 07:00 Intake Total 300 ml 750 ml 300 ml Balance 300 ml 750 ml 300 ml medications Current Medications Medications Dose Ordered Sig/Florentin Route Start Time Stop Time Status Last Admin Dose Admin Ceftriaxone Sodium 50 ml @ 100 mls/hr DAILY@09 IV 10/26/25 09:00 10/28/25 12:03 100 MLS/HR Azithromycin 250 ml @ 125 mls/hr DAILY IV 10/26/25 10:00 10/28/25 10:00 125 MLS/HR Ondansetron HCl 4 mg Q6HPRN PRN IV 10/25/25 12:15 Pantoprazole Sodium 40 mg DAILY IV 10/26/25 10:00 10/28/25 11:52 40 MG Vancomycin HCl 0 ml @ 0 mls/hr PER PHARMACY IV 10/25/25 16:15 Heparin Sodium (Porcine) 5,000 units Q8HR SC 10/26/25 14:00 10/28/25 05:29 5,000 UNITS Carvedilol 3.125 mg Q12HR PO 10/26/25 22:00 10/27/25 22:12 3.125 MG Sevelamer HCl 1,600 mg TIDWM PO 10/26/25 18:00 10/28/25 11:53 1,600 MG objective HEENT: No evidence of JVD, no oral ulcers. Pulmonary: Diminished on auscultation bilaterally Cardiovascular S1-S2, no S3 or S4 Abdomen: Bowel sounds positive, soft no rebound tenderness Skin: No rash Neurological: Alert, oriented, no focal weakness Extremities: Trace edema, more edema in the left upper arm with chest veins dilated Left upper arm AV fistula positive bruit and thrill laboratory and microbiology Laboratory Tests 10/28/25 05:40 10/27/25 06:00 Test 10/27/25 06:00 Range/Units Serum Glucose 93 74-106 mg/dL Assessment/Plan Assessment: 1. Severe sepsis 2. Multifocal pneumonia 3. End-stage renal disease on hemodialysis Wednesday 4. Acute hypoxic respiratory failure, improving 5. New onset AFib RVR 6. Anemia 7. Cellulitis 8. Hyperkalemia managed with dialysis 9. Pericardial effusion 10. Central vein stenosis suspected Plan: Hemodialysis Wednesday Plan for fistulogram as an outpatient for suspected central vein stenosis Broad-spectrum antibiotics So far no growth on the cultures AFib management as per Cardiology Oxygen supplementation to keep pulses more than 90% Low-potassium diet, renal diet Cardiology consult Nima for goal hemoglobin 10 to 11 grams/deciliter Patient is stable from Nephrology perspective Thank you very much for allowing us to participate in the care of this patient please contact if you have any questions. Plan discussed with: Patient, Son LINDA NICOLE MD Oct 28, 2025 13:32
--- NOTE | 2025-10-28 16:52 | DVHPNRES ---
Progress Note Date Seen: Oct 28, 2025 Resident Creating Document: LENARD COFFEY RESIDENT Medical Necessity Reason Pt with a Central, PICC or Fol: Yes The following are medically ne: Central Line Subjective Review of Systems Owen Ames is a 80-year-old with past medical history of hypertension, ESRD on dialysis Wednesday and possible thyroid disorder who came to the ED with a chief complaint of shortness of breath. The patient mentioned he started having shortness of breath 1 week back which got progressively worse. The patient underwent dialysis on Wednesday were 3 L fluid was removed, without any events. After he went home from the dialysis he started feeling his shortness of breaths getting worse. He denied any chest pain, cough, phlegm, fever or chills. The patient mentions noticing blood in the stools stools being darker colored since 3 weeks after he got a colonoscopy and a polyp was removed. When he was brought to the hospital, patient was septic and EKG showed atrial fibrillation. The patient also had to be put on vasopressors 0.03 overnight, which was stopped in the morning today as his blood pressure stabilized. Nephrology evaluated the patient and patient underwent hemodialysis today, without any complications. Past medical history:hypertension, ESRD on dialysis Wednesday and possible thyroid disorder .?melanoma Past surgical history: Left upper arm AV fistula Home medications: Amlodipine, carvedilol, enalapril, sevelamer Social & Personal history: Lives at home with family, denies any smoking, alcohol, drug use Allergies: No known allergies Patient seen and examined at bedside. Patient is alert and oriented to time, place person and responding to all questions. Eyes: No Pain, No Vision change, No Conjunctivae inflammation, No Eyelid inflammation, No Redness ENT: No Ear pain, No Ear discharge, No Nose pain, No Nose discharge, No Nose congestion, No Mouth pain, No Mouth swelling, No Throat pain, No Throat swelling Cardiovascular: No Chest Pain, No Palpitations, No Orthopnea, No Paroxysmal No Dyspnea, No Edema, No Lt Headedness Respiratory: No Cough, No Dry, No Shortness of breath, No SOB with exertion, No Wheezing, No Hemoptysis, No Pleuritic Pain, No Sputum Gastrointestinal: No Nausea, No Vomiting, No Abdominal Pain, No Diarrhea, No Constipation, No Melena, No Hematochezia Genitourinary: No Dysuria, No Frequency, No Incontinence, No Hematuria, No Retention 10/27/25- the patient was seen and evaluated at bedside today. He still complains of pain in the left arm. All labs and charts were reviewed. PT request for service was placed. 10/28/25- the patient was seen and evaluated at bedside today. He is saturating well on 2 L oxygen by nasal cannula. He has no new complaints. All labs and charts were reviewed. Telemetry was reviewed, he is still in RVR with controlled rate, which we started Eliquis 2.5 mg b.i.d. nephrology recommended Fistulogram as outpatient for suspected central venous stenosis. Pending evaluation by Podiatry. Physical therapy recommended front wheel walker, request for the same was placed. Objective vital signs Vital Sign Date Time Temp Pulse Resp B/P (MAP) Pulse Ox O2 Delivery O2 Flow Rate FiO2 10/28/25 13:00 97.0 58 18 126/59 (81) 97 97.0 10/28/25 08:15 Nasal Cannula* 2 28 Total Intake and Output 10/27/25 10/27/25 10/28/25 15:00 23:00 07:00 Intake Total 300 ml 750 ml 300 ml Balance 300 ml 750 ml 300 ml medications Current Medications Medications Dose Ordered Sig/Florentin Route Start Time Stop Time Status Last Admin Dose Admin Ceftriaxone Sodium 50 ml @ 100 mls/hr DAILY@09 IV 10/26/25 09:00 10/28/25 12:03 100 MLS/HR Azithromycin 250 ml @ 125 mls/hr DAILY IV 10/26/25 10:00 10/28/25 10:00 125 MLS/HR Ondansetron HCl 4 mg Q6HPRN PRN IV 10/25/25 12:15 Pantoprazole Sodium 40 mg DAILY IV 10/26/25 10:00 10/28/25 11:52 40 MG Heparin Sodium (Porcine) 5,000 units Q8HR SC 10/26/25 14:00 10/28/25 15:00 5,000 UNITS Carvedilol 3.125 mg Q12HR PO 10/26/25 22:00 10/27/25 22:12 3.125 MG Sevelamer HCl 1,600 mg TIDWM PO 10/26/25 18:00 10/28/25 11:53 1,600 MG Apixaban 2.5 mg BID PO 10/29/25 10:00 Examination General Appearance: Cooperative. Well developed. Well nourished. NAD. Patient has a right femoral central line. Head Exam: Normal inspection Neck Exam: Normal inspection. Non-tender. Normal alignment Pulmonary/Respiratory: Chest non-tender. Clear bilateral breath sounds, no crackles, no wheezing. Cardiovascular/Chest: Regular rate and rhythm. No murmurs. No JVD. Peripheral Pulses: 2+ Radial (R). 2+ Radial (L). 2+ Pedal (R). 2+ Pedal (L) Abdominal Exam: Normal bowel sounds. Soft. normal abdomen, no visible veins, Nontender. No hepatospenomegaly. No masses Ankle Exam: Negative ankle edema Lower extremities: Negative lower extremity edema, 2 x 2 cm dark area on left great toe Upper extremity: Av fistula with palpable thrill on left inner arm, 3+ pitting edema of left upper extremity and 1+ edema of right upper extremity, engorged veins seen on the left shoulder area Neuro/Mental Status: A&O x4. Coherent. Thoughts/Psych: Normal thought pattern. Appropriate mood and affect. Good judgement and insight Skin Exam: Normal inspection. Normal color. Warm. Dry laboratory and microbiology Laboratory Tests 10/28/25 05:40 10/27/25 06:00 Test 10/27/25 06:00 Range/Units Serum Glucose 93 74-106 mg/dL Microbiology Date/Time Source Procedure Growth Status 10/26/25 10:07 Nose MRSA Screen - Final Complete 10/25/25 09:40 Blood Blood Culture - Preliminary Resulted Labs and/or images reviewed: Labs reviewed by me, Image(s) reviewed by me Problem List/Assessment/Plan Problem List/Assessment/Plan # Septic shock, likely from pneumonia # Acute hypoxic respiratory failure likely due to pneumonia # Pneumonia likely due to Gram +/- bacteria # Rule out metastasis from melanoma - IV antibiotics ceftriaxone + azithromycin - CT chest- cardiomegaly, pulmonary edema, bilateral effusions - PE less likely since modified wells score<4 - blood culture shows Gram-positive cocci clusters - D-dimer 3.41 - lactic acid 1.9 >1.0 - chest x-ray shows pulmonary vascular congestion # Congestive heart failure, likely HFrEF # Atrial fibrillation, likely new onset, CHADVAsc score 4, HAS bled score 2 # Pericardial effusion, ruled out - echocardiogram EF 50%, mild LVH, biatrial enlargement,MS suspected - last echocardiogram done in 2019 showed LVEF 45% with global hypokinesis with small pericardial effusion - started on Eliquis 2.5 mg b.i.d. p.o. # normocytic normochromic anemia, possibly of chronic disease, S/P 1 PRBC - monitor H&H - transfuse if hemoglobin is less than 7 # End-stage renal disease on dialysis MWF - nephrology on board- hemodialysis today on 10/26/2025, 2L removed, scheduled for HD on 10/29/2025 - monitor electrolytes # ?Rectal Bleeding - h/o colonoscopy status post polypectomy - IV Protonix - stool occult blood negative, repeat sample sent # Rule out DVT upper extremity # possible cellulitis left arm - No venous thrombus identified in the LEFT upper extremity vessels evaluated above. - fistulogram as an outpatient for suspected central vein stenosis # rule out osteomyelitis of left foot -left foot CT- Diffuse vascular atherosclerotic disease. Nonvisualization of flow in the dorsalis pedis artery. Flow is maintained to the foot via collaterals.Diffuse subcutaneous soft-tissue edema and swelling throughout the foot; possibly cellulitis. -podiatry consulted, pending evaluation PUD prophylaxis: Protonix DVT prophylaxis: Held because patient is anemic and reports rectal bleeding Goals of care discussed with the patient and his grandson at bedside for over 25 minutes. Chemical code only. Plan discussed with Dr. Carey Plan discussed with: Patient Date of Service: Oct 28, 2025 Billing Provider: MARCOS CAREY MD Common Visit Codes: [id number] INP/OBS CARE(HIGH) LENARD COFFEY RESIDENT Oct 28, 2025 16:52 MARCOS CAREY MD Oct 28, 2025 22:34
[2025-10-29] VITALS (8 sets, daily range): BP systolic 96–133; BP diastolic 35–68; PULSE 71–92; RESP 16–19; TEMP 96.7–99.4; O2SAT 90–99
[2025-10-29 06:56] LABS: Hemoglobin 8.3 g/dL (13.5-17.5); Nucleated Red Blood Cells % 0.0 %
[2025-10-29 06:58] LABS: Hematocrit 25.5 % (41.0-53.0); Mean Corpuscular Hemoglobin 28.3 pg (28.0-32.0); Mean Corpuscular Volume 86.4 fL (80.0-100.0)
[2025-10-29 07:07] LABS: Potassium 4.9 mmol/L (3.5-5.1)
[2025-10-29 07:08] LABS: Anion Gap 9 (5-15); Carbon Dioxide 29 mmol/L (20-31)
[2025-10-29 07:09] LABS: Calcium 9.2 mg/dL (8.7-10.4)
[2025-10-29 07:10] LABS: Chloride 93 mmol/L (98-107); Sodium 131 mmol/L (136-145)
[2025-10-29 07:13] LABS: Glucose 94 mg/dL (74-106)
[2025-10-29 07:14] LABS: BUN/Creatinine Ratio 5.8 (10.0-20.0)
[2025-10-29 07:22] LABS: Blood Urea Nitrogen 41 mg/dL (9-23)
[2025-10-29] MEDS ORDERED: VANCOMYCIN PER PHARMACY 0 MG IV SCH (07:30)
[2025-10-29] MEDS: APIXABAN 2.5 MG TAB PO SCH (08:46)
[2025-10-29] MEDS: VANCOMYCIN 500mg/100mL 100 ML IV ONE (11:00)
--- NOTE | 2025-10-29 13:58 | DVHCONRES ---
Date Seen: Oct 29, 2025 Reason for Consultation Left hallux wound History of Present Illness Patient is a 80-year-old male with a medical history of hypertension, end-stage renal disease on dialysis Wednesday was brought to the ED for chief complaint of shortness of breath since yesterday. Patient was reported to be apparently well until yesterday when he started to have shortness of breath associated after he got dialysis and later went home but continued to have shortness of breath following which she was brought to the hospital today morning for further evaluation. Patient denied any cough, phlegm, fever or chills, chest pain. Patient also reportedly has been having blood in the stools since the last 3 weeks since he got the colonoscopy and a polyp was removed. Patient denied any recent surgeries, immobilization, no calf pain, no chest pain. As per the grandson patient also has not been eating well since the last few days, patient denies any dysphagia, odynophagia or nausea/ vomiting. On arrival to the ED patient was seen to be tachycardic and EKG showed atrial fibrillation, elevated WBC count with left shift and was recorded to have a fever of 101.7 F. he will be admitted for further evaluation Past Medical History See H&P Past Surgical History See H&P Family History: Diabetes mellitus G8 MOTHER G8 FATHER G8 SISTER G8 SISTER G8 SISTER G8 SISTER FH: pneumonia G8 BROTHER Allergies: Coded Allergies: NO KNOWN ALLERGIES (Unverified , 02/04/20) Home Meds Active Scripts Vancomycin Hcl (Vancomycin Po) 125 Mg So, 125 MG PO QID, #40 ML Prov:JACKY MCDONALD MD 03/13/20 Enalapril Maleate (Enalapril Maleate) 2.5 Mg Tab, 2.5 MG PO Q12HR for 30 Days, #60 TAB Prov:DIAMOND PEACE MD 02/14/20 Carvedilol (COREG) 3.125 Mg Tab, 3.125 MG PO Q12HR for 30 Days, #60 TAB Prov:DIAMOND PEACE MD 02/14/20 Reported Medications Sevelamer Hydrochloride (Renagel) 800 Mg Tab, 1600 MG PO TID, TAB 02/05/20 Esomeprazole Magnesium (Esomeprazole Magnesium Dr) 40 Mg Cap, 40 MG PO DAILY, CAP 02/05/20 B-Complex W/ C & Folic Acid (Nephro-Roger Rx) 1 Tab Tb, 1 TAB PO DAILY, TAB 02/05/20 Current Medications Current Medications Medications (Trade) Dose Ordered Sig/Florentin Route PRN Reason Start Time Stop Time Status Last Admin Apixaban (Eliquis) 2.5 mg BID PO 10/29/25 10:00 10/29/25 08:46 Vancomycin HCl 0 ml @ 0 mls/hr PER PHARMACY IV 10/29/25 07:30 Vital Signs Vital Signs Date Time Temp Pulse Resp B/P (MAP) Pulse Ox O2 Delivery O2 Flow Rate FiO2 10/29/25 09:40 76 129/53 10/29/25 08:41 97.2 16 97 97.2 10/29/25 08:10 Nasal Cannula* 2 28 Physical Exam Dermatological: Skin is dry with mild erythema and some maceration around the wound site No gross deformities noted Mild non-pitting edema present bilaterally Left hallux lateral gangrene Vascular: Dorsalis pedis and posterior tibial pulses are 1+ bilaterally Capillary refill is under 2 seconds Skin temperature is warm bilaterally Neurologic: Protective sensation is absent on the plantar forefoot bilaterally Monofilament testing reveals decreased sensation in multiple plantar sites Musculoskeletal: Range of motion at the ankle and MTP joints is within normal limits. Strength is 5/5 in all tested muscle groups. Gait is antalgic due to offloading of the affected limb. Labs/Diagnostic Data Labs Test 10/29/25 06:35 10/28/25 05:40 10/26/25 12:25 10/26/25 08:55 Range/Units White Blood Count 13.3 H 4.4-10.8 10^3/uL Red Blood Count 2.95 L 4.5-5.90 10^6/uL Hemoglobin 8.3 L 13.5-17.5 g/dL Hematocrit 25.5 L 41.0-53.0 % Mean Corpuscular Volume 86.4 80.0-100.0 fL Mean Corpuscular Hemoglobin 28.3 28.0-32.0 pg Mean Corpuscular Hemoglobin Concent 32.8 32.0-36.0 g/dL Red Cell Distribution Width 17.0 H 11.8-14.3 % Platelet Count 265 140-450 10^3/uL Mean Platelet Volume 8.7 6.9-10.8 fL Neutrophils (%) (Auto) 82.7 H 37.0-80.0 % Lymphocytes (%) (Auto) 8.8 L 10.0-50.0 % Monocytes (%) (Auto) 6.0 0.0-12.0 % Eosinophils (%) (Auto) 2.1 0.0-7.0 % Basophils (%) (Auto) 0.4 0.0-2.0 % Neutrophils # (Auto) 11.0 H 1.6-8.6 10 ^3/uL Lymphocytes # (Auto) 1.2 0.4-5.4 10 ^3/uL Monocytes # (Auto) 0.8 0-1.3 10 ^3/uL Eosinophils # (Auto) 0.3 0-0.8 10 ^3/uL Basophils # (Auto) 0.1 0-0.2 10 ^3/uL Nucleated Red Blood Cells 0.0 % Sodium Level 131 #L 136-145 mmol/L Potassium Level 4.9 3.5-5.1 mmol/L Chloride Level 93 L 98-107 mmol/L Carbon Dioxide Level 29 20-31 mmol/L Anion Gap 9 5-15 Blood Urea Nitrogen 41 H 9-23 mg/dL Creatinine 7.08 H 0.700-1.30 mg/dL Glomerular Filtration Rate Calc 7 >90 mL/min BUN/Creatinine Ratio 5.8 L 10.0-20.0 Serum Glucose 94 74-106 mg/dL Calcium Level 9.2 8.7-10.4 mg/dL Random Vancomycin Level 17.1 H 5-10 ug/mL Hemoglobin A1c 5.1 <5.7 % A1C Troponin I High Sensitivity 67 *H </=54 ng/L Hepatitis B Surface Antigen Negative Negative Test 10/26/25 06:20 10/26/25 05:00 10/25/25 17:10 10/25/25 16:21 Range/Units B-Type Natriuretic Peptide 785.45 0-100 pg/mL Thyroid Stimulating Hormone (TSH) 3.52 0.55-4.78 uIU/mL Stool Occult Blood Sample #3 Negative Negative Lactic Acid Level 1.0 0.4-2.0 mmol/L Blood Gas Specimen Type Arterial Blood Gas Sample Site Left radial Blood Gas Patient Temperature 37.0 Arterial Blood Date Drawn [id number] Arterial Blood pH 7.517 H 7.350-7.450 Arterial Blood Partial Pressure CO2 39.1 35.0-48.0 mmHg Arterial Blood Partial Pressure O2 78.2 L 83.0-108.0 mmHg Arterial Blood HCO3 31.0 H 21.0-28.0 mmol/L Arterial Blood Oxygen Saturation 95.3 94.0-98.0 % Arterial Blood Base Excess 7.5 H -2.0-3.0 mmol/L Arterial Blood Oxyhemoglobin 93.8 L 94.0-98.0 % Arterial Blood Carboxyhemoglobin 1.0 0.5-1.5 % Arterial Blood Methemoglobin 0.6 0.0-1.5 % Arterial Blood Deoxyhemoglobin 4.6 0.0-5.0 % Silvano Test Yes Blood Gas Total Hemoglobin 8.00 L 13.5-17.5 g/dL Blood Gas Modality Nasal cannula FiO2 % 32.0 Test 10/25/25 09:25 Range/Units Prothrombin Time 13.0 H 9.3-11.8 sec Prothrombin Time INR 1.25 H 0.9-1.15 Activated Partial Thromboplast Time 32.8 24.5-34.5 SEC D-Dimer, Quantitative 3.41 H 0.0-0.49 mg/L FEU Total Bilirubin 0.6 0.2-1.0 mg/dL Aspartate Amino Transferase (AST) 39 13-40 U/L Alanine Aminotransferase (ALT) 23 7-40 U/L Alkaline Phosphatase 107 46-116 U/L Total Protein 6.8 5.7-8.2 g/dL Albumin 3.2 3.2-4.8 g/dL Microbiology Date/Time Source Procedure Growth Status 10/26/25 10:07 Nose MRSA Screen - Final Complete 10/25/25 09:40 Blood Blood Culture - Final Staphylococcus lugdunensis Complete Problems(with codes): (1) General medical examination (2) CHF (congestive heart failure) (3) Sepsis (4) End stage renal disease on dialysis Plan/Recommendation ASSESSMENT: Patient is a 80 year old seen on the floor for a worsening ulcer PLAN: - The patients chart was reviewed, clinical findings were discussed with the patient, the etiologies of the conditions were discussed in detail, and a treatment plan was agreed to at this time, with both oral and written instructions provided. - reviewed advanced imaging - recommend we get an MRI of the left foot - look to rule out osteomyelitis of the left hallux - keep dry with Betadine - continue IV antibiotics - we will determine if surgical intervention required pending MRI results All questions were answered and concerns addressed to the patient's satisfaction. The patient was given the phone number to the clinic and was told how to make contact with the clinic should any concerns or questions arise. Patient understands that if any questions or concerns arise prior to the next appointment, we should be contacted immediately. FOLLOW-UP: Continue to follow while inpatient Plan discussed with: Patient Visit Coding Podiatry Date of Service if different f: Oct 29, 2025 Billing Provider: ABDULLAHI LOW DPM Podiatry Common Visit Codes: CONSULT ONLY Podiatry Consult Codes: [id number]/[id number] NEW/EST HI 80 ABDULLAHI LOW DPM Oct 29, 2025 13:58
[2025-10-29] MEDS: SODIUM CHL 0.9% 1000 ML BAG XX ONE (16:00)
--- NOTE | 2025-10-29 17:12 | DVHPNRES ---
Progress Note Date Seen: Oct 29, 2025 Resident Creating Document: LENARD COFFEY RESIDENT Medical Necessity Reason Pt with a Central, PICC or Fol: No Subjective Review of Systems Owen Ames is a 80-year-old with past medical history of hypertension, ESRD on dialysis Wednesday and possible thyroid disorder who came to the ED with a chief complaint of shortness of breath. The patient mentioned he started having shortness of breath 1 week back which got progressively worse. The patient underwent dialysis on Wednesday were 3 L fluid was removed, without any events. After he went home from the dialysis he started feeling his shortness of breaths getting worse. He denied any chest pain, cough, phlegm, fever or chills. The patient mentions noticing blood in the stools stools being darker colored since 3 weeks after he got a colonoscopy and a polyp was removed. When he was brought to the hospital, patient was septic and EKG showed atrial fibrillation. The patient also had to be put on vasopressors 0.03 overnight, which was stopped in the morning today as his blood pressure stabilized. Nephrology evaluated the patient and patient underwent hemodialysis today, without any complications. Past medical history:hypertension, ESRD on dialysis Wednesday and possible thyroid disorder .?melanoma Past surgical history: Left upper arm AV fistula Home medications: Amlodipine, carvedilol, enalapril, sevelamer Social & Personal history: Lives at home with family, denies any smoking, alcohol, drug use Allergies: No known allergies Patient seen and examined at bedside. Patient is alert and oriented to time, place person and responding to all questions. Eyes: No Pain, No Vision change, No Conjunctivae inflammation, No Eyelid inflammation, No Redness ENT: No Ear pain, No Ear discharge, No Nose pain, No Nose discharge, No Nose congestion, No Mouth pain, No Mouth swelling, No Throat pain, No Throat swelling Cardiovascular: No Chest Pain, No Palpitations, No Orthopnea, No Paroxysmal No Dyspnea, No Edema, No Lt Headedness Respiratory: No Cough, No Dry, No Shortness of breath, No SOB with exertion, No Wheezing, No Hemoptysis, No Pleuritic Pain, No Sputum Gastrointestinal: No Nausea, No Vomiting, No Abdominal Pain, No Diarrhea, No Constipation, No Melena, No Hematochezia Genitourinary: No Dysuria, No Frequency, No Incontinence, No Hematuria, No Retention 10/27/25- the patient was seen and evaluated at bedside today. He still complains of pain in the left arm. All labs and charts were reviewed. PT request for service was placed. 10/28/25- the patient was seen and evaluated at bedside today. He is saturating well on 2 L oxygen by nasal cannula. He has no new complaints. All labs and charts were reviewed. Telemetry was reviewed, he is still in RVR with controlled rate, which we started Eliquis 2.5 mg b.i.d. nephrology recommended Fistulogram as outpatient for suspected central venous stenosis. Pending evaluation by Podiatry. Physical therapy recommended front wheel walker, request for the same was placed. Objective vital signs Vital Sign Date Time Temp Pulse Resp B/P (MAP) Pulse Ox O2 Delivery O2 Flow Rate FiO2 10/29/25 13:00 96.7 71 16 96/56 (69) 96 96.7 10/29/25 08:10 Nasal Cannula* 2 28 Total Intake and Output 10/28/25 10/28/25 10/29/25 15:00 23:00 07:00 Intake Total 625 ml 1000 ml 300 ml Balance 625 ml 1000 ml 300 ml medications Current Medications Medications Dose Ordered Sig/Florentin Route Start Time Stop Time Status Last Admin Dose Admin Ceftriaxone Sodium 50 ml @ 100 mls/hr DAILY@09 IV 10/26/25 09:00 10/29/25 08:26 100 MLS/HR Azithromycin 250 ml @ 125 mls/hr DAILY IV 10/26/25 10:00 10/29/25 10:18 125 MLS/HR Ondansetron HCl 4 mg Q6HPRN PRN IV 10/25/25 12:15 Pantoprazole Sodium 40 mg DAILY IV 10/26/25 10:00 10/29/25 08:24 40 MG Heparin Sodium (Porcine) 5,000 units Q8HR SC 10/26/25 14:00 10/29/25 13:07 5,000 UNITS Carvedilol 3.125 mg Q12HR PO 10/26/25 22:00 10/29/25 08:40 3.125 MG Sevelamer HCl 1,600 mg TIDWM PO 10/26/25 18:00 10/29/25 13:00 1,600 MG Apixaban 2.5 mg BID PO 10/29/25 10:00 10/29/25 08:46 2.5 MG Vancomycin HCl 0 ml @ 0 mls/hr PER PHARMACY IV 10/29/25 07:30 Examination General Appearance: Cooperative. Well developed. Well nourished. NAD. Patient has a right femoral central line. Head Exam: Normal inspection Neck Exam: Normal inspection. Non-tender. Normal alignment Pulmonary/Respiratory: Chest non-tender. Clear bilateral breath sounds, no crackles, no wheezing. Cardiovascular/Chest: Regular rate and rhythm. No murmurs. No JVD. Peripheral Pulses: 2+ Radial (R). 2+ Radial (L). 2+ Pedal (R). 2+ Pedal (L) Abdominal Exam: Normal bowel sounds. Soft. normal abdomen, no visible veins, Nontender. No hepatospenomegaly. No masses Ankle Exam: Negative ankle edema Lower extremities: Negative lower extremity edema, 2 x 2 cm dark area on left great toe Upper extremity: Av fistula with palpable thrill on left inner arm, 3+ pitting edema of left upper extremity and 1+ edema of right upper extremity, engorged veins seen on the left shoulder area Neuro/Mental Status: A&O x4. Coherent. Thoughts/Psych: Normal thought pattern. Appropriate mood and affect. Good judgement and insight Skin Exam: Normal inspection. Normal color. Warm. Dry laboratory and microbiology Laboratory Tests 10/29/25 06:35 Test 10/29/25 06:35 Range/Units Serum Glucose 94 74-106 mg/dL Microbiology Date/Time Source Procedure Growth Status 10/26/25 10:07 Nose MRSA Screen - Final Complete 10/25/25 09:40 Blood Blood Culture - Final Staphylococcus lugdunensis Complete Labs and/or images reviewed: Labs reviewed by me, Image(s) reviewed by me Problem List/Assessment/Plan Problem List/Assessment/Plan # Septic shock, likely from pneumonia # Acute hypoxic respiratory failure likely due to pneumonia # Pneumonia likely due to Gram +/- bacteria # Rule out metastasis from melanoma - IV antibiotics vancomycin per pharmacy - CT chest- cardiomegaly, pulmonary edema, bilateral effusions - PE less likely since modified wells score<4 - blood culture shows -Staph lugdunensis, repeat blood culture ordered - D-dimer 3.41 - lactic acid 1.9 >1.0 - chest x-ray shows pulmonary vascular congestion # Congestive heart failure, likely HFrEF # Atrial fibrillation, likely new onset, CHADVAsc score 4, HAS bled score 2 # Pericardial effusion, ruled out - echocardiogram EF 50%, mild LVH, biatrial enlargement,MS suspected - last echocardiogram done in 2019 showed LVEF 45% with global hypokinesis with small pericardial effusion - started on Eliquis 2.5 mg b.i.d. p.o. on 10/29/25 # normocytic normochromic anemia, possibly of chronic disease, S/P 1 PRBC - monitor H&H - transfuse if hemoglobin is less than 7 # End-stage renal disease on dialysis MWF - nephrology on board- hemodialysis today on 10/26/2025, 2L removed, on dialysis today - monitor electrolytes # ?Rectal Bleeding - h/o colonoscopy status post polypectomy - IV Protonix - stool occult blood negative, repeat sample sent # Rule out DVT upper extremity # possible cellulitis left arm - No venous thrombus identified in the LEFT upper extremity vessels evaluated above. - fistulogram as an outpatient for suspected central vein stenosis # rule out osteomyelitis of left foot -left foot CT- Diffuse vascular atherosclerotic disease. Nonvisualization of flow in the dorsalis pedis artery. Flow is maintained to the foot via collaterals.Diffuse subcutaneous soft-tissue edema and swelling throughout the foot; possibly cellulitis. -podiatry on board, foot MRI ordered pending report PUD prophylaxis: Protonix DVT prophylaxis: Held because patient is anemic and reports rectal bleeding Goals of care discussed with the patient and his grandson at bedside for over 25 minutes. Chemical code only. Plan discussed with Dr. Carey Plan discussed with: Patient, Other My Orders My Orders Orders - LENARD COFFEY RESIDENT Procedure Category Date Status Time Vancomycin Per PHA 10/29/25 In Process Pharmacy 07:30 Complete Blood Count LAB 10/30/25 Verified 04:00 Creatinine LAB 10/30/25 Verified 04:00 Vancomycin,Random LAB 10/30/25 Verified 04:00 Vancomycin Per LYNNETTE 10/29/25 In Process Pharmacy Protoc 11:00 Apply: LYNNETTE 10/29/25 In Process 11:40 Apply Z-Guard LYNNETTE 10/29/25 In Process 11:40 * Dietary Consult CONS 10/29/25 Transmitted 16:06 Date of Service: Oct 29, 2025 Billing Provider: MARCOS CAREY MD Common Visit Codes: [id number] INP/OBS CARE(HIGH) LENARD COFFEY RESIDENT Oct 29, 2025 17:12 MARCOS CAREY MD Oct 30, 2025 01:31
--- NOTE | 2025-10-29 17:15 | DVH ---
EXAM: MRI MRI L FOOT WO CONTRAST INDICATION: r/o OM TECHNIQUE: Multiplanar, multisequence imaging of the left foot without contrast COMPARISON: CT CT L FOOT WO CONTRAST on DOS: 10/25/25 FINDINGS: BONES: No MR evidence of an acute fracture, osseous contusion, or aggressive focal osseous lesion. indeterminate osteitis /bone marrow edema which may be related to stress reaction versus sequelae of degenerative change involving the talus. Small areas cystic change of the lateral malleolus. In regards to the clinical question, no definitive MR evidence of osteomyelitis allowing for limitation from large [id number]. MUSCLES: Edematous appearance of the intrinsic musculature likely compatible with myositis and/or denervation edema TENDONS: Intact however small amount of fluid at the [place] which may reflect tenosynovitis LIGAMENTS: Intact. JOINT SPACES: No joint effusion. NEUROVASCULAR: Normal. OTHER: None. IMPRESSION: 1. In regards to the clinical question, no definitive MR evidence of osteomyelitis allowing for limitation from large [id number]. 2. Indeterminate osteitis /bone marrow edema which may be related to stress reaction versus sequelae of degenerative change involving the talus. 3. Edematous appearance of the intrinsic musculature likely compatible with myositis and/or denervation edema.
--- NOTE | 2025-10-29 18:25 | DVHPN2 ---
Progress Note - Dictate Date Seen: Oct 29, 2025 Medical Necessity Reason Pt with a Central, PICC or Fol: No Subjective No new complaints vital signs Vital Sign Date Time Temp Pulse Resp B/P (MAP) Pulse Ox O2 Delivery O2 Flow Rate FiO2 10/29/25 16:35 97.0 81 16 133/66 (88) 99 97.0 10/29/25 08:10 Nasal Cannula* 2 28 Total Intake and Output 10/28/25 10/28/25 10/29/25 15:00 23:00 07:00 Intake Total 625 ml 1000 ml 300 ml Balance 625 ml 1000 ml 300 ml medications Current Medications Medications Dose Ordered Sig/Florentin Route Start Time Stop Time Status Last Admin Dose Admin Ceftriaxone Sodium 50 ml @ 100 mls/hr DAILY@09 IV 10/26/25 09:00 10/29/25 08:26 100 MLS/HR Azithromycin 250 ml @ 125 mls/hr DAILY IV 10/26/25 10:00 10/29/25 10:18 125 MLS/HR Ondansetron HCl 4 mg Q6HPRN PRN IV 10/25/25 12:15 Pantoprazole Sodium 40 mg DAILY IV 10/26/25 10:00 10/29/25 08:24 40 MG Heparin Sodium (Porcine) 5,000 units Q8HR SC 10/26/25 14:00 10/29/25 13:07 5,000 UNITS Carvedilol 3.125 mg Q12HR PO 10/26/25 22:00 10/29/25 08:40 3.125 MG Sevelamer HCl 1,600 mg TIDWM PO 10/26/25 18:00 10/29/25 13:00 1,600 MG Apixaban 2.5 mg BID PO 10/29/25 10:00 10/29/25 08:46 2.5 MG Vancomycin HCl 0 ml @ 0 mls/hr PER PHARMACY IV 10/29/25 07:30 objective Alert and oriented x 3 NAD Lungs CTA CV: IR, S4 gallop. II/ SE< Abdomen: soft, non tender, low intensity bowel sounds No leg edema laboratory and microbiology Laboratory Tests 10/29/25 06:35 Test 10/29/25 06:35 Range/Units Serum Glucose 94 74-106 mg/dL Problem List 1. End-stage renal disease on hemodialysis Wednesday 2. Pneumonia 3. Acute hypoxic respiratory failure, improving 4. New onset AFib RVR 5. Anemia 6. Cellulitis 7. Pericardial effusion Plan: Hemodialysis Wednesday, had HD today, no problems Plan for fistulogram as an outpatient for suspected central vein stenosis Broad-spectrum antibiotics AFib management as per Cardiology Oxygen supplementation to keep pulses more than 90% Low-potassium diet, renal diet Cardiology consult Nima for goal hemoglobin 10 to 11 grams/deciliter Plan discussed with: Other EHSAN CARBAJAL MD Oct 29, 2025 18:25
[2025-10-29] MEDS: EPOETIN ALFA-EPBX 10,000 UNIT/1ML VIAL SC ONE (21:12)
[2025-10-30] VITALS (8 sets, daily range): BP systolic 100–120; BP diastolic 51–70; PULSE 51–75; RESP 16–19; TEMP 98.2–99.2; O2SAT 96–100
[2025-10-30 07:01] LABS: Hematocrit 23.4 % (41.0-53.0); Hemoglobin 7.7 g/dL (13.5-17.5); Mean Corpuscular Hemoglobin 29.5 pg (28.0-32.0); Mean Corpuscular Volume 89.6 fL (80.0-100.0); Nucleated Red Blood Cells % 0.1 %
[2025-10-30 07:17] LABS: Potassium 4.2 mmol/L (3.5-5.1); Sodium 138 mmol/L (136-145)
[2025-10-30 07:18] LABS: Anion Gap 9 (5-15); Calcium 8.9 mg/dL (8.7-10.4)
[2025-10-30 07:23] LABS: BUN/Creatinine Ratio 4.4 (10.0-20.0); Glucose 91 mg/dL (74-106)
[2025-10-30 07:27] LABS: Blood Urea Nitrogen 23 mg/dL (9-23); Carbon Dioxide 33 mmol/L (20-31); Chloride 96 mmol/L (98-107)
--- NOTE | 2025-10-30 10:12 | MEDREC ---
[facility] ASP Intervention Section I [facility] ASP Intervention: Deescalate AB based on CS (Blood culture 03/02 shows S lugdunensis susceptible to oxacillin. Please d/c vancomycin and initiate nafcillin as this pathogen behaves similarly to S Aureus. And beta-lactam is superior than vancomycin for treating bacteremia with methicillin-sensitive S aureus. Please consider consulting ID as this has proven to reduce mortality) AMANDA HERNANDEZ [facility] RESIDENT Oct 30, 2025 10:12
[2025-10-30] MEDS: PANTOPRAZOLE 40 MG TAB PO ONE (10:34)
[2025-10-30] MEDS: AZITHROMYCIN 250 MG TAB PO ONE (10:34)
--- NOTE | 2025-10-30 12:09 | DVHPN2 ---
Progress Note - Dictate Date Seen: Oct 30, 2025 Has the PT tested + for MRSA If YES, has PT been informed?: No Medical Necessity Reason Pt with a Central, PICC or Fol: No Subjective No new complaints vital signs Vital Sign Date Time Temp Pulse Resp B/P (MAP) Pulse Ox O2 Delivery O2 Flow Rate FiO2 10/30/25 10:38 61 119/51 10/30/25 09:00 99.2 16 98 99.2 10/29/25 20:10 Room Air* 0 21 Total Intake and Output 10/29/25 10/29/25 10/30/25 15:00 23:00 07:00 Intake Total 300 ml 650 ml 100 ml Balance 300 ml 650 ml 100 ml medications Current Medications Medications Dose Ordered Sig/Florentin Route Start Time Stop Time Status Last Admin Dose Admin Ondansetron HCl 4 mg Q6HPRN PRN IV 10/25/25 12:15 Heparin Sodium (Porcine) 5,000 units Q8HR SC 10/26/25 14:00 10/30/25 05:34 5,000 UNITS Carvedilol 3.125 mg Q12HR PO 10/26/25 22:00 10/30/25 10:38 3.125 MG Sevelamer HCl 1,600 mg TIDWM PO 10/26/25 18:00 10/30/25 10:34 1,600 MG Vancomycin HCl 0 ml @ 0 mls/hr PER PHARMACY IV 10/29/25 07:30 Pantoprazole Sodium 40 mg DAILY@0600 PO 10/31/25 06:00 objective Alert and oriented x 3 NAD Lungs CTA CV: IR, S4 gallop. II/ SE< Abdomen: soft, non tender, low intensity bowel sounds No leg edema laboratory and microbiology Laboratory Tests 10/30/25 06:03 Test 10/30/25 06:03 Range/Units Serum Glucose 91 74-106 mg/dL Problem List 1. End-stage renal disease on hemodialysis Wednesday 2. Pneumonia 3. Acute hypoxic respiratory failure, improving 4. New onset AFib RVR 5. Anemia 6. Cellulitis 7. Pericardial effusion Plan: Hemodialysis Wednesday Plan for fistulogram as an outpatient for suspected central vein stenosis Broad-spectrum antibiotics AFib management as per Cardiology Oxygen supplementation to keep pulses more than 90% Low-potassium diet, renal diet Cardiology consult Nima for goal hemoglobin 10 to 11 grams/deciliter Dietary Evaluation Review Comments: Increase protein and energy intakes to promote wound healing cardiac Diet Expected Outcomes/Goals: improved nutrition status and gradully healed wounds Plan discussed with: Patient EHSAN CARBAJAL MD Oct 30, 2025 12:09
--- NOTE | 2025-10-30 18:50 | DVHPNRES ---
Progress Note Date Seen: Oct 30, 2025 Resident Creating Document: LENARD COFFEY RESIDENT Has the PT tested + for MRSA If YES, has PT been informed?: No Medical Necessity Reason Pt with a Central, PICC or Fol: No Subjective Review of Systems Owen Ames is a 80-year-old with past medical history of hypertension, ESRD on dialysis Wednesday and possible thyroid disorder who came to the ED with a chief complaint of shortness of breath. The patient mentioned he started having shortness of breath 1 week back which got progressively worse. The patient underwent dialysis on Wednesday were 3 L fluid was removed, without any events. After he went home from the dialysis he started feeling his shortness of breaths getting worse. He denied any chest pain, cough, phlegm, fever or chills. The patient mentions noticing blood in the stools stools being darker colored since 3 weeks after he got a colonoscopy and a polyp was removed. When he was brought to the hospital, patient was septic and EKG showed atrial fibrillation. The patient also had to be put on vasopressors 0.03 overnight, which was stopped in the morning today as his blood pressure stabilized. Nephrology evaluated the patient and patient underwent hemodialysis today, without any complications. Past medical history:hypertension, ESRD on dialysis Wednesday and possible thyroid disorder .?melanoma Past surgical history: Left upper arm AV fistula Home medications: Amlodipine, carvedilol, enalapril, sevelamer Social & Personal history: Lives at home with family, denies any smoking, alcohol, drug use Allergies: No known allergies Patient seen and examined at bedside. Patient is alert and oriented to time, place person and responding to all questions. Eyes: No Pain, No Vision change, No Conjunctivae inflammation, No Eyelid inflammation, No Redness ENT: No Ear pain, No Ear discharge, No Nose pain, No Nose discharge, No Nose congestion, No Mouth pain, No Mouth swelling, No Throat pain, No Throat swelling Cardiovascular: No Chest Pain, No Palpitations, No Orthopnea, No Paroxysmal No Dyspnea, No Edema, No Lt Headedness Respiratory: No Cough, No Dry, No Shortness of breath, No SOB with exertion, No Wheezing, No Hemoptysis, No Pleuritic Pain, No Sputum Gastrointestinal: No Nausea, No Vomiting, No Abdominal Pain, No Diarrhea, No Constipation, No Melena, No Hematochezia Genitourinary: No Dysuria, No Frequency, No Incontinence, No Hematuria, No Retention 10/27/25- the patient was seen and evaluated at bedside today. He still complains of pain in the left arm. All labs and charts were reviewed. PT request for service was placed. 10/28/25- the patient was seen and evaluated at bedside today. He is saturating well on 2 L oxygen by nasal cannula. He has no new complaints. All labs and charts were reviewed. Telemetry was reviewed, he is still in RVR with controlled rate, which we started Eliquis 2.5 mg b.i.d. nephrology recommended Fistulogram as outpatient for suspected central venous stenosis. Pending evaluation by Podiatry. Physical therapy recommended front wheel walker, request for the same was placed. 10/29/25- patient was seen at bedside today. The patient got hemodialysis today and 2.5 L fluid was removed. 10/30/25- the patient was evaluated at bedside today. Patient continues to complain of pain in the dorsum of left foot. MRI foot, left side showed myositis and/or denervation edema. Repeat blood culture was ordered. The patient was started on azithromycin 500 mg p.o. for pneumonia. Objective vital signs Vital Sign Date Time Temp Pulse Resp B/P (MAP) Pulse Ox O2 Delivery O2 Flow Rate FiO2 10/30/25 17:00 98.6 63 16 100/53 (69) 98 98.6 10/30/25 08:10 Nasal Cannula* 2 28 Total Intake and Output 10/29/25 10/29/25 10/30/25 15:00 23:00 07:00 Intake Total 300 ml 650 ml 100 ml Balance 300 ml 650 ml 100 ml medications Current Medications Medications Dose Ordered Sig/Florentin Route Start Time Stop Time Status Last Admin Dose Admin Ondansetron HCl 4 mg Q6HPRN PRN IV 10/25/25 12:15 Heparin Sodium (Porcine) 5,000 units Q8HR SC 10/26/25 14:00 10/30/25 05:34 5,000 UNITS Carvedilol 3.125 mg Q12HR PO 10/26/25 22:00 10/30/25 10:38 3.125 MG Sevelamer HCl 1,600 mg TIDWM PO 10/26/25 18:00 10/30/25 17:48 1,600 MG Vancomycin HCl 0 ml @ 0 mls/hr PER PHARMACY IV 10/29/25 07:30 Pantoprazole Sodium 40 mg DAILY@0600 PO 10/31/25 06:00 Examination General Appearance: Cooperative. Well developed. Well nourished. NAD. Patient has a right femoral central line. Head Exam: Normal inspection Neck Exam: Normal inspection. Non-tender. Normal alignment Pulmonary/Respiratory: Chest non-tender. Clear bilateral breath sounds, no crackles, no wheezing. Cardiovascular/Chest: Regular rate and rhythm. No murmurs. No JVD. Peripheral Pulses: 2+ Radial (R). 2+ Radial (L). 2+ Pedal (R). 2+ Pedal (L) Abdominal Exam: Normal bowel sounds. Soft. normal abdomen, no visible veins, Nontender. No hepatospenomegaly. No masses Ankle Exam: Negative ankle edema Lower extremities: Negative lower extremity edema, 2 x 2 cm dark area on left great toe Upper extremity: Av fistula with palpable thrill on left inner arm, 3+ pitting edema of left upper extremity and 1+ edema of right upper extremity, engorged veins seen on the left shoulder area Neuro/Mental Status: A&O x4. Coherent. Thoughts/Psych: Normal thought pattern. Appropriate mood and affect. Good judgement and insight Skin Exam: Normal inspection. Normal color. Warm. Dry laboratory and microbiology Laboratory Tests 10/30/25 06:03 Test 10/30/25 06:03 Range/Units Serum Glucose 91 74-106 mg/dL Microbiology Date/Time Source Procedure Growth Status 10/26/25 10:07 Nose MRSA Screen - Final Complete 10/25/25 09:40 Blood Blood Culture - Final Staphylococcus lugdunensis Complete Labs and/or images reviewed: Labs reviewed by me, Image(s) reviewed by me Problem List/Assessment/Plan Problem List/Assessment/Plan # Septic shock, likely from pneumonia # Acute hypoxic respiratory failure likely due to pneumonia # Pneumonia likely due to Gram +/- bacteria # Rule out metastasis from melanoma - IV antibiotics vancomycin per pharmacy - CT chest- cardiomegaly, pulmonary edema, bilateral effusions - PE less likely since modified wells score<4 - blood culture shows -Staph lugdunensis, repeat blood culture ordered - D-dimer 3.41 - lactic acid 1.9 >1.0 - chest x-ray shows pulmonary vascular congestion # Congestive heart failure, likely HFrEF # Atrial fibrillation, likely new onset, CHADVAsc score 4, HAS bled score 2 # Pericardial effusion, ruled out - echocardiogram EF 50%, mild LVH, biatrial enlargement,MS suspected - last echocardiogram done in 2019 showed LVEF 45% with global hypokinesis with small pericardial effusion - started on Eliquis 2.5 mg b.i.d. p.o. on 10/29/25 # normocytic normochromic anemia, possibly of chronic disease, S/P 1 PRBC - monitor H&H - transfuse if hemoglobin is less than 7 # End-stage renal disease on dialysis MWF - nephrology on board- hemodialysis on 10/29/2025- 2.5 L removed - monitor electrolytes # ?Rectal Bleeding - h/o colonoscopy status post polypectomy - IV Protonix - stool occult blood negative, repeat sample sent # Rule out DVT upper extremity # possible cellulitis left arm - No venous thrombus identified in the LEFT upper extremity vessels evaluated above. - fistulogram as an outpatient for suspected central vein stenosis # rule out osteomyelitis of left foot -left foot CT- Diffuse vascular atherosclerotic disease. Nonvisualization of flow in the dorsalis pedis artery. Flow is maintained to the foot via collaterals.Diffuse subcutaneous soft-tissue edema and swelling throughout the foot; possibly cellulitis. -podiatry on board, foot MRI -no definitive MR evidence of osteomyelitis,Indeterminate osteitis /bone marrow edema and Edematous appearance of the intrinsic musculature likely compatible with myositis and/or denervation edema PUD prophylaxis: Protonix DVT prophylaxis: Held because patient is anemic and reports rectal bleeding Goals of care discussed with the patient and his grandson at bedside for over 25 minutes. Chemical code only. Plan discussed with Dr. Jim Plan discussed with: Patient My Orders My Orders Orders - LENARD COFFEY RESIDENT Procedure Category Date Status Time Blood Culture MAXIM 10/30/25 In Process 10:10 Creatinine LAB 10/31/25 Verified 04:00 Vancomycin,Random LAB 10/31/25 Verified 04:00 Dietary Evaluation Review Comments: Increase protein and energy intakes to promote wound healing cardiac Diet Expected Outcomes/Goals: improved nutrition status and gradully healed wounds Visit Coding STANDARD RES Billing Provider: CHONG JIM MD Date of Service if different f: Oct 30, 2025 Common Visit Codes: [id number] INP/OBS CARE(HIGH) LENARD COFFEY RESIDENT Oct 30, 2025 18:50
[2025-10-31] VITALS (17 sets, daily range): BP systolic 94–155; BP diastolic 46–80; PULSE 60–87; RESP 11–20; TEMP 96.9–98.5; O2SAT 93–100
[2025-10-31] MEDS: PANTOPRAZOLE 40 MG TAB PO SCH (06:33)
[2025-10-31] MEDS: ACETAMINOPHEN 325 MG TAB PO ONE (06:57)
[2025-10-31] MEDS: SODIUM CHL 0.9% 1000 ML BAG XX ONE (07:00)
[2025-10-31 07:28] LABS: Hemoglobin 8.0 g/dL (13.5-17.5); Nucleated Red Blood Cells % 0.0 %
[2025-10-31 07:30] LABS: Hematocrit 24.1 % (41.0-53.0); Mean Corpuscular Hemoglobin 29.6 pg (28.0-32.0); Mean Corpuscular Volume 88.6 fL (80.0-100.0)
[2025-10-31 07:40] LABS: Potassium 4.9 mmol/L (3.5-5.1)
[2025-10-31 07:41] LABS: Anion Gap 8 (5-15); Calcium 9.1 mg/dL (8.7-10.4); Carbon Dioxide 31 mmol/L (20-31)
[2025-10-31 07:46] LABS: BUN/Creatinine Ratio 4.9 (10.0-20.0); Glucose 87 mg/dL (74-106)
[2025-10-31 07:47] LABS: Blood Urea Nitrogen 31 mg/dL (9-23); Chloride 95 mmol/L (98-107); Sodium 134 mmol/L (136-145)
--- NOTE | 2025-10-31 12:08 | DVHPN2 ---
Progress Note - Dictate Date Seen: Oct 31, 2025 Has the PT tested + for MRSA If YES, has PT been informed?: No Medical Necessity Reason Pt with a Central, PICC or Fol: No Subjective Had HD today Procedure went well, due to low bp the UF was minimal, but patient feels comfortable. vital signs Vital Sign Date Time Temp Pulse Resp B/P (MAP) Pulse Ox O2 Delivery O2 Flow Rate FiO2 10/31/25 09:00 97.0 60 16 109/56 (73) 98 97.0 10/31/25 02:00 Nasal Cannula* 2 28 Total Intake and Output 10/30/25 10/30/25 10/31/25 14:59 22:59 06:59 Intake Total 380 ml 100 ml Balance 380 ml 100 ml medications Current Medications Medications Dose Ordered Sig/Florentin Route Start Time Stop Time Status Last Admin Dose Admin Ondansetron HCl 4 mg Q6HPRN PRN IV 10/25/25 12:15 Heparin Sodium (Porcine) 5,000 units Q8HR SC 10/26/25 14:00 10/31/25 06:35 5,000 UNITS Carvedilol 3.125 mg Q12HR PO 10/26/25 22:00 10/30/25 21:36 3.125 MG Sevelamer HCl 1,600 mg TIDWM PO 10/26/25 18:00 10/31/25 08:52 1,600 MG Vancomycin HCl 0 ml @ 0 mls/hr PER PHARMACY IV 10/29/25 07:30 Pantoprazole Sodium 40 mg DAILY@0600 PO 10/31/25 06:00 10/31/25 06:33 40 MG objective Alert and oriented x 3 NAD Lungs CTA CV: IR, S4 gallop. II/ SE< Abdomen: soft, non tender, low intensity bowel sounds Left arm edema, patent left arm AVF laboratory and microbiology Laboratory Tests 10/31/25 06:59 Test 10/31/25 06:59 Range/Units Serum Glucose 87 74-106 mg/dL Problem List 1. End-stage renal disease on hemodialysis Wednesday 2. Pneumonia 3. Acute hypoxic respiratory failure has resolved 4. New onset AFib RVR 5. Anemia 6. Cellulitis of foot 7. Left arm edema is likely due to AVF circulatory problems, will send him for outpatient vascular surgery evaluation once he is discharged Plan: Continue Hemodialysis Wednesday Plan for fistulogram as an outpatient for suspected central vein stenosis Broad-spectrum antibiotics AFib management as per Cardiology Getting RANJITH today Oxygen supplementation to keep pulses more than 90% Low-potassium diet, renal diet Cardiology consult Nima for goal hemoglobin 10 to 11 grams/deciliter Dietary Evaluation Review Comments: Increase protein and energy intakes to promote wound healing cardiac Diet Expected Outcomes/Goals: improved nutrition status and gradully healed wounds Plan discussed with: Patient, Son EHSAN CARBAJAL MD Oct 31, 2025 12:08
--- NOTE | 2025-10-31 14:01 | DVHINCON2 ---
Date Seen: Oct 31, 2025 Referring Physician MD Benjamin resident Reason for Consultation Positive blood cultures, rule out infective endocarditis History of Present Illness This is a [place]isian-speaking 80-year-old male patient who presents to emergency room with chief complaint of worsening shortness of breath for one day. Cardiology has been consulted at this time for RANJITH evaluation given positive blood cultures. The patient denies any cardiac symptoms at time of assessment including chest pain, shortness of breath, palpitations, or dizziness. Initial twelve lead electrocardiogram found in patient's hard chart reveals atrial fibrillation with baseline wander. Significant past medical history includes congestive heart failure, atrial fibrillation (not on DOAC), hypertension, dyslipidemia, end-stage renal disease on hemodialysis, chronic anemia, and skin melanoma. The patient reports he has seen a nitroglycerin separator operator in the past, but does not regularly follow up with a nitroglycerin separator operator in the outpatient setting. It is also worth noting that the patient is off of DOAC therapy despite history of atrial fibrillation given recent GI bleed. Of note, risks of being off of DOAC therapy discussed with the patient and his son at bedside. Educated family that the patient is at risk for stroke being off of DOAC therapy. The patient and his family wish for the patient to remain off of anticoagulation given recent GI bleed and high-risk for bleeding. We will proceed with the patient wishes. Past Medical History Past medical history reviewed. No other significant than mentioned above. Past Surgical History Denies any previous surgeries Family History: Diabetes mellitus G8 MOTHER G8 FATHER G8 SISTER G8 SISTER G8 SISTER G8 SISTER FH: pneumonia G8 BROTHER Family History Family history reviewed. Social History Denies the use of tobacco, alcohol or illicit drugs. Allergies: Coded Allergies: NO KNOWN ALLERGIES (Unverified , 02/04/20) Home Meds Active Scripts Vancomycin Hcl (Vancomycin Po) 125 Mg So, 125 MG PO QID, #40 ML Prov:JACKY MCDONALD MD 03/13/20 Enalapril Maleate (Enalapril Maleate) 2.5 Mg Tab, 2.5 MG PO Q12HR for 30 Days, #60 TAB Prov:DIAMOND PEACE MD 02/14/20 Carvedilol (COREG) 3.125 Mg Tab, 3.125 MG PO Q12HR for 30 Days, #60 TAB Prov:DIAMOND PEACE MD 02/14/20 Reported Medications Sevelamer Hydrochloride (Renagel) 800 Mg Tab, 1600 MG PO TID, TAB 02/05/20 Esomeprazole Magnesium (Esomeprazole Magnesium Dr) 40 Mg Cap, 40 MG PO DAILY, CAP 02/05/20 B-Complex W/ C & Folic Acid (Nephro-Roger Rx) 1 Tab Tb, 1 TAB PO DAILY, TAB 02/05/20 Home Meds Home medications reviewed. Current Medications Current Medications Medications (Trade) Dose Ordered Sig/Florentin Route PRN Reason Start Time Stop Time Status Last Admin Pantoprazole Sodium (Protonix Tablet) 40 mg DAILY@0600 PO 10/31/25 06:00 10/31/25 06:33 Review of Systems Constitutional: No symptom reported Ears, Nose, & Throat: No symptom reported Eyes: No symptom reported Neurological: No symptoms reported Pulmonary/Respiratory: Shortness of breath Cardiovascular: No symptom reported Gastrointestinal: No symptom reported Genitourinary: No symptom reported Musculoskeletal: No symptom reported Skin: No symptom reported Psychiatric: No symptom reported Endocrine: No symptom reported Hematologic/Lymphatic: No symptom reported Vital Signs Vital Signs Date Time Temp Pulse Resp B/P (MAP) Pulse Ox O2 Delivery O2 Flow Rate FiO2 10/31/25 09:00 97.0 60 16 109/56 (73) 98 97.0 10/31/25 08:00 Nasal Cannula* 2 28 Physical Exam General Appearance: Cooperative. Well-developed. Well-nourished. No acute distress. Pulmonary/Respiratory: Clear, bilateral breaths sounds. Cardiovascular/Chest: Irregularly irregular rate and rhythm. Peripheral Pulses: 2+ Radial (R). 2+ Radial (L). Abdominal Exam: Normal bowel sounds. Ankle Exam: Negative ankle edema Lower extremities: Negative lower extremity edema Neuro/Mental Status: A/OX4, coherent. Thoughts/Psych: Normal thought pattern. Appropriate mood and affect. Good j udgment and insight. Appearance: No acute distress. Skin Exam: Normal inspection. Normal color. Warm and dry. Left upper arm fistula noted. Left foot wrapped with dressing. Labs/Diagnostic Data Labs Test 10/31/25 06:59 10/28/25 05:40 10/26/25 12:25 10/26/25 08:55 Range/Units White Blood Count 10.0 4.4-10.8 10^3/uL Red Blood Count 2.72 L 4.5-5.90 10^6/uL Hemoglobin 8.0 L 13.5-17.5 g/dL Hematocrit 24.1 L 41.0-53.0 % Mean Corpuscular Volume 88.6 80.0-100.0 fL Mean Corpuscular Hemoglobin 29.6 28.0-32.0 pg Mean Corpuscular Hemoglobin Concent 33.4 32.0-36.0 g/dL Red Cell Distribution Width 17.3 H 11.8-14.3 % Platelet Count 248 140-450 10^3/uL Mean Platelet Volume 8.5 6.9-10.8 fL Neutrophils (%) (Auto) 76.8 37.0-80.0 % Lymphocytes (%) (Auto) 12.1 10.0-50.0 % Monocytes (%) (Auto) 7.3 0.0-12.0 % Eosinophils (%) (Auto) 3.0 0.0-7.0 % Basophils (%) (Auto) 0.8 0.0-2.0 % Neutrophils # (Auto) 7.7 1.6-8.6 10 ^3/uL Lymphocytes # (Auto) 1.2 0.4-5.4 10 ^3/uL Monocytes # (Auto) 0.7 0-1.3 10 ^3/uL Eosinophils # (Auto) 0.3 0-0.8 10 ^3/uL Basophils # (Auto) 0.1 0-0.2 10 ^3/uL Nucleated Red Blood Cells 0.0 % Sodium Level 134 L 136-145 mmol/L Potassium Level 4.9 3.5-5.1 mmol/L Chloride Level 95 L 98-107 mmol/L Carbon Dioxide Level 31 20-31 mmol/L Anion Gap 8 5-15 Blood Urea Nitrogen 31 H 9-23 mg/dL Creatinine 6.33 H 0.700-1.30 mg/dL Glomerular Filtration Rate Calc 8 >90 mL/min BUN/Creatinine Ratio 4.9 L 10.0-20.0 Serum Glucose 87 74-106 mg/dL Calcium Level 9.1 8.7-10.4 mg/dL Random Vancomycin Level 15.5 H 5-10 ug/mL Hemoglobin A1c 5.1 <5.7 % A1C Troponin I High Sensitivity 67 *H </=54 ng/L Hepatitis B Surface Antigen Negative Negative Test 11/28/25 06:20 10/26/25 05:00 10/25/25 17:10 10/25/25 16:21 Range/Units B-Type Natriuretic Peptide 785.45 0-100 pg/mL Thyroid Stimulating Hormone (TSH) 3.52 0.55-4.78 uIU/mL Stool Occult Blood Sample #3 Negative Negative Lactic Acid Level 1.0 0.4-2.0 mmol/L Blood Gas Specimen Type Arterial Blood Gas Sample Site Left radial Blood Gas Patient Temperature 37.0 Arterial Blood Date Drawn [id number] Arterial Blood pH 7.517 H 7.350-7.450 Arterial Blood Partial Pressure CO2 39.1 35.0-48.0 mmHg Arterial Blood Partial Pressure O2 78.2 L 83.0-108.0 mmHg Arterial Blood HCO3 31.0 H 21.0-28.0 mmol/L Arterial Blood Oxygen Saturation 95.3 94.0-98.0 % Arterial Blood Base Excess 7.5 H -2.0-3.0 mmol/L Arterial Blood Oxyhemoglobin 93.8 L 94.0-98.0 % Arterial Blood Carboxyhemoglobin 1.0 0.5-1.5 % Arterial Blood Methemoglobin 0.6 0.0-1.5 % Arterial Blood Deoxyhemoglobin 4.6 0.0-5.0 % Silvano Test Yes Blood Gas Total Hemoglobin 8.00 L 13.5-17.5 g/dL Blood Gas Modality Nasal cannula FiO2 % 32.0 Test 10/25/25 09:25 Range/Units Prothrombin Time 13.0 H 9.3-11.8 sec Prothrombin Time INR 1.25 H 0.9-1.15 Activated Partial Thromboplast Time 32.8 24.5-34.5 SEC D-Dimer, Quantitative 3.41 H 0.0-0.49 mg/L FEU Total Bilirubin 0.6 0.2-1.0 mg/dL Aspartate Amino Transferase (AST) 39 13-40 U/L Alanine Aminotransferase (ALT) 23 7-40 U/L Alkaline Phosphatase 107 46-116 U/L Total Protein 6.8 5.7-8.2 g/dL Albumin 3.2 3.2-4.8 g/dL Microbiology Date/Time Source Procedure Growth Status 10/30/25 13:14 Blood Blood Culture - Preliminary NO GROWTH AFTER 24 HOURS OF INCUBATION. Resulted 10/26/25 10:07 Nose MRSA Screen - Final Complete Assessment Bacteremia, rule out infective endocarditis Chronic HFpEF, NYHA class III Atrial fibrillation with controlled rate (Not on DOAC due to hx of GI bleed) Hypertension Dyslipidemia Acute on chronic anemia status post PRBC transfusion Pneumonia End-stage renal disease on hemodialysis Skin melanoma Plan/Recommendation We will continue with the following plan/recommendations (Dr. Ambrosio): A transthoracic echocardiogram done on this admission reveals an EF of 50%, aortic stenosis with restricted motion and mean gradient not accurate therefore can not rule out severe or low flow low gradient on this study. Case discussed with . The patient presents with generalized weakness, pyrexia, and positive blood cultures during this admission. Given these findings, the patient has been recommended to undergo a transesophageal echocardiogram to rule out infective endocarditis. Procedure discussed with the patient and his son who was at bedside. The patient understands and is agreeable to undergo procedure. We will schedule the patient at soonest availability. Thank you for allowing us to care for this patient. Please call with any questions or concerns. Critical care time spent: 44 minutes This medical document was created using an electronic medical record system with voice recognition software and computerized dictation system. Although this document has been carefully reviewed, there might still be some phonetic and typographical errors. Occasional wrong-word or ``sound-alike substitutions may have occurred due to the inherent limitations of voice recognition software. These areas are purely typographical due to imperfections of the software programs and do not reflect any compromise in the patient's medical care. Please read the chart carefully and recognize, using context, where these substitutions have occurred. Plan discussed with: Patient, Son NYHA Physical activity limitations: Class3(Marked) ordinary (activity causes symtoms) Date of Service: Oct 31, 2025 Billing Provider: ELLA ROGERS Cardiology Common Codes: 66322-JDCZAPX INP/OBS CARE (High) Cardiology Consultation Codes: 39420-[id number] CONSULT <45MIN ELLA ROGERS Oct 31, 2025 14:00
--- NOTE | 2025-10-31 16:31 | DVHOP2 ---
Operative Report - 2 Report Details Date: 10/31/25 Preop Diagnosis: Fever sepsis Postop Diagnosis: Mitral valve vegetation Surgeon: Manuel Ambrosio MD Anesthesiologist: Conscious sedation Anesthesia: Mac Consent: The patient was informed of the risks and benefits of the procedure. These include but are not limited to complications of anesthesia, postoperative infection, incomplete relief of symptoms, recurrence of symptoms, damage to blood vessels, nerves and tendons, deep venous thrombosis, pulmonary embolism and possible need for repeat surgery in the future. Complications: No complications Findings: Mitral valve vegetation Indications for Surgery: Sepsis Name of Procedure Performed Transesophageal echocardiogram Procedure Details Procedure Details: Prior full informed consent obtained the patient was prepped and draped in usual fashion lidocaine gel given for gargle. Patient was placed in left lateral and semi-Bolanos position. Transesophageal probe was passed without difficulty. Conclusions 1. Technically good study. Sinus rhythm. Chamber dimension evaluation shows mild left atrial enlargement RV enlargement. Right atrial enlargement. There is a thickening and small vegetation along the tip of the posterolateral aspect of the mitral leaflet. It has degenerated part of the tip of the valve. There is some disease knows it also along the anterior mitral leaflet tip. There is slight prolapse of in echodensity which appears to be a vegetation into the left atrium. It is rather small. The aortic leaflets are also mildly thickened and calcified. The edge of the left coronary cusp with the non coronary cusp also appears to show some thickening and hypodensity. Can not rule out a small vegetation at this level as well. It is slightly mobile. The tricuspid and pulmonic or structurally normal. Left ventricular function is preserved at 50% with normal RV function. Severe mitral insufficiency. Mild aortic insufficiency. Moderate tricuspid regurgitation. No atrial or ventricular septal defects. Bubble study negative for crossing over. No other masses noted. Vegetations are highly probable in the mitral and aortic valves. Clinical correlation strongly recommended. No pericardial effusion noted. Condition Guarded Disposition Still a Patient Date of Service: Oct 31, 2025 Cardiology Common Codes: 14946-YCBRYVT INP/OBS CARE (High) Cardiology Procedure Codes: 81180-KIP W/IMG DOC INCL PROB ACQ MANUEL AMBROSIO Sr., MD Oct 31, 2025 16:31
[2025-10-31] MEDS: VANCOMYCIN 500mg/100mL 100 ML IV ONE (18:02)
[2025-10-31] MEDS: MIDAZOLAM HCL 2MG/2ML 2ml VIAL (1mg/ml) IV ONE (18:12)
[2025-10-31] MEDS: fentaNYL CITRATE 100 MCG/2 ML VL IV ONE (18:12)
[2025-10-31] MEDS: LIDOCAINE VISCOUS 2% 15ML UD MT ONE (18:12)
--- NOTE | 2025-10-31 18:27 | DVHPNRES ---
Progress Note Date Seen: Oct 31, 2025 Resident Creating Document: LENARD COFFEY RESIDENT Has the PT tested + for MRSA If YES, has PT been informed?: No Medical Necessity Reason Pt with a Central, PICC or Fol: No Subjective Review of Systems Owen Ames is a 80-year-old with past medical history of hypertension, ESRD on dialysis Wednesday and possible thyroid disorder who came to the ED with a chief complaint of shortness of breath. The patient mentioned he started having shortness of breath 1 week back which got progressively worse. The patient underwent dialysis on Wednesday were 3 L fluid was removed, without any events. After he went home from the dialysis he started feeling his shortness of breaths getting worse. He denied any chest pain, cough, phlegm, fever or chills. The patient mentions noticing blood in the stools stools being darker colored since 3 weeks after he got a colonoscopy and a polyp was removed. When he was brought to the hospital, patient was septic and EKG showed atrial fibrillation. The patient also had to be put on vasopressors 0.03 overnight, which was stopped in the morning today as his blood pressure stabilized. Nephrology evaluated the patient and patient underwent hemodialysis today, without any complications. Past medical history:hypertension, ESRD on dialysis Wednesday and possible thyroid disorder .?melanoma Past surgical history: Left upper arm AV fistula Home medications: Amlodipine, carvedilol, enalapril, sevelamer Social & Personal history: Lives at home with family, denies any smoking, alcohol, drug use Allergies: No known allergies Patient seen and examined at bedside. Patient is alert and oriented to time, place person and responding to all questions. Eyes: No Pain, No Vision change, No Conjunctivae inflammation, No Eyelid inflammation, No Redness ENT: No Ear pain, No Ear discharge, No Nose pain, No Nose discharge, No Nose congestion, No Mouth pain, No Mouth swelling, No Throat pain, No Throat swelling Cardiovascular: No Chest Pain, No Palpitations, No Orthopnea, No Paroxysmal No Dyspnea, No Edema, No Lt Headedness Respiratory: No Cough, No Dry, No Shortness of breath, No SOB with exertion, No Wheezing, No Hemoptysis, No Pleuritic Pain, No Sputum Gastrointestinal: No Nausea, No Vomiting, No Abdominal Pain, No Diarrhea, No Constipation, No Melena, No Hematochezia Genitourinary: No Dysuria, No Frequency, No Incontinence, No Hematuria, No Retention 10/27/25- the patient was seen and evaluated at bedside today. He still complains of pain in the left arm. All labs and charts were reviewed. PT request for service was placed. 10/28/25- the patient was seen and evaluated at bedside today. He is saturating well on 2 L oxygen by nasal cannula. He has no new complaints. All labs and charts were reviewed. Telemetry was reviewed, he is still in RVR with controlled rate, which we started Eliquis 2.5 mg b.i.d. nephrology recommended Fistulogram as outpatient for suspected central venous stenosis. Pending evaluation by Podiatry. Physical therapy recommended front wheel walker, request for the same was placed. 10/29/25- patient was seen at bedside today. The patient got hemodialysis today and 2.5 L fluid was removed. 10/30/25- the patient was evaluated at bedside today. Patient continues to complain of pain in the dorsum of left foot. MRI foot, left side showed myositis and/or denervation edema. Repeat blood culture was ordered. The patient was started on azithromycin 500 mg p.o. for pneumonia. 10/31/25- patient was seen and evaluated at bedside today. Patient complained of pain in his left foot for which he was given Tylenol 650 mg. Cardiology was consulted for possible RANJITH, to rule out infective endocarditis given the positive blood cultures. The patient will undergo RANJITH today. Objective vital signs Vital Sign Date Time Temp Pulse Resp B/P (MAP) Pulse Ox O2 Delivery O2 Flow Rate FiO2 10/31/25 17:30 96.9 67 16 122/55 (77) 99 96.9 10/31/25 08:00 Nasal Cannula* 2 28 Total Intake and Output 10/30/25 10/30/25 10/31/25 15:00 23:00 07:00 Intake Total 380 ml 100 ml Balance 380 ml 100 ml medications Current Medications Medications Dose Ordered Sig/Florentin Route Start Time Stop Time Status Last Admin Dose Admin Ondansetron HCl 4 mg Q6HPRN PRN IV 10/25/25 12:15 Heparin Sodium (Porcine) 5,000 units Q8HR SC 10/26/25 14:00 10/31/25 06:35 5,000 UNITS Carvedilol 3.125 mg Q12HR PO 10/26/25 22:00 10/30/25 21:36 3.125 MG Sevelamer HCl 1,600 mg TIDWM PO 10/26/25 18:00 10/31/25 18:02 1,600 MG Vancomycin HCl 0 ml @ 0 mls/hr PER PHARMACY IV 10/29/25 07:30 Pantoprazole Sodium 40 mg DAILY@0600 PO 10/31/25 06:00 10/31/25 06:33 40 MG Examination General Appearance: Cooperative. Well developed. Well nourished. NAD. Patient has a right femoral central line. Head Exam: Normal inspection Neck Exam: Normal inspection. Non-tender. Normal alignment Pulmonary/Respiratory: Chest non-tender. Clear bilateral breath sounds, no crackles, no wheezing. Cardiovascular/Chest: irregularly irregular rate and rhythm, MR murmur heard at apex, No JVD. Peripheral Pulses: 2+ Radial (R). 2+ Radial (L). 2+ Pedal (R). 2+ Pedal (L) Abdominal Exam: Normal bowel sounds. Soft. normal abdomen, no visible veins, Nontender. No hepatospenomegaly. No masses Ankle Exam: Negative ankle edema Lower extremities: Negative lower extremity edema, 2 x 2 cm dark area on left great toe Upper extremity: Av fistula with palpable thrill on left inner arm, 3+ pitting edema of left upper extremity and 1+ edema of right upper extremity, engorged veins seen on the left shoulder area Neuro/Mental Status: A&O x4. Coherent. Thoughts/Psych: Normal thought pattern. Appropriate mood and affect. Good judgement and insight Skin Exam: Normal inspection. Normal color. Warm. Dry laboratory and microbiology Laboratory Tests 10/31/25 06:59 Test 10/31/25 06:59 Range/Units Serum Glucose 87 74-106 mg/dL Microbiology Date/Time Source Procedure Growth Status 10/30/25 13:43 Blood Blood Culture - Preliminary NO GROWTH AFTER 24 HOURS OF INCUBATION. Resulted 10/26/25 10:07 Nose MRSA Screen - Final Complete Labs and/or images reviewed: Labs reviewed by me, Image(s) reviewed by me Problem List/Assessment/Plan Problem List/Assessment/Plan # Septic shock, likely from pneumonia # Acute hypoxic respiratory failure likely due to pneumonia # Pneumonia likely due to Gram +/- bacteria # Rule out metastasis from melanoma - IV antibiotics vancomycin per pharmacy - CT chest- cardiomegaly, pulmonary edema, bilateral effusions - PE less likely since modified wells score<4 - blood culture shows -Staph lugdunensis, repeat blood culture ordered - D-dimer 3.41 - lactic acid 1.9 >1.0 - chest x-ray shows pulmonary vascular congestion # Congestive heart failure, likely HFrEF # Atrial fibrillation, likely new onset, CHADVAsc score 4, HAS bled score 2 # Small Pericardial effusion - echocardiogram EF 50%, mild LVH, biatrial enlargement,MS suspected - last echocardiogram done in 2019 showed LVEF 45% with global hypokinesis with small pericardial effusion - started on Eliquis 2.5 mg b.i.d. p.o. on 10/29/25 - RANJITH done on 10/31/2025, pending report # normocytic normochromic anemia, possibly of chronic disease, S/P 1 PRBC - monitor H&H - transfuse if hemoglobin is less than 7 # End-stage renal disease on dialysis MWF - nephrology on board- hemodialysis on 10/31/2025 - monitor electrolytes # ?Rectal Bleeding - h/o colonoscopy status post polypectomy - IV Protonix - stool occult blood negative, repeat sample sent # Rule out DVT upper extremity # possible cellulitis left arm - No venous thrombus identified in the LEFT upper extremity vessels evaluated above. - fistulogram as an outpatient for suspected central vein stenosis # rule out osteomyelitis of left foot -left foot CT- Diffuse vascular atherosclerotic disease. Nonvisualization of flow in the dorsalis pedis artery. Flow is maintained to the foot via collaterals.Diffuse subcutaneous soft-tissue edema and swelling throughout the foot; possibly cellulitis. -podiatry on board, foot MRI -no definitive MR evidence of osteomyelitis,Indeterminate osteitis /bone marrow edema and Edematous appearance of the intrinsic musculature likely compatible with myositis and/or denervation edema PUD prophylaxis: Protonix DVT prophylaxis: Held because patient is anemic and reports rectal bleeding Goals of care discussed with the patient and his grandson at bedside for over 25 minutes. Chemical code only. Plan discussed with Dr. Jim Plan discussed with: Patient My Orders My Orders Orders - LENARD COFFEY RESIDENT Procedure Category Date Status Time Vancomycin,Random LAB 11/01/25 Verified 04:00 Creatinine LAB 11/01/25 Verified 04:00 Dietary Evaluation Review Comments: Increase protein and energy intakes to promote wound healing cardiac Diet Expected Outcomes/Goals: improved nutrition status and gradully healed wounds Visit Coding STANDARD RES Billing Provider: CHONG JIM MD Date of Service if different f: Oct 31, 2025 Common Visit Codes: [id number] INP/OBS CARE(HIGH) LENARD COFFEY RESIDENT Oct 31, 2025 18:27
[2025-10-31] MEDS: EPOETIN ALFA-EPBX 10,000 UNIT/1ML VIAL SC ONE (21:56)
[2025-11-01] VITALS (9 sets, daily range): BP systolic 106–126; BP diastolic 56–73; PULSE 63–83; RESP 17–20; TEMP 97.3–98.4; O2SAT 94–100
[2025-11-01 06:35] LABS: Hemoglobin 8.0 g/dL (13.5-17.5); Nucleated Red Blood Cells % 0.1 %
[2025-11-01 06:41] LABS: Hematocrit 24.0 % (41.0-53.0); Mean Corpuscular Hemoglobin 29.3 pg (28.0-32.0); Mean Corpuscular Volume 88.5 fL (80.0-100.0)
[2025-11-01 06:44] LABS: Potassium 4.5 mmol/L (3.5-5.1); Sodium 139 mmol/L (136-145)
[2025-11-01 06:45] LABS: Anion Gap 10 (5-15); Calcium 8.9 mg/dL (8.7-10.4)
[2025-11-01 06:49] LABS: Carbon Dioxide 32 mmol/L (20-31); Chloride 97 mmol/L (98-107)
[2025-11-01 06:50] LABS: BUN/Creatinine Ratio 4.2 (10.0-20.0); Blood Urea Nitrogen 19 mg/dL (9-23); Glucose 83 mg/dL (74-106)
--- NOTE | 2025-11-01 10:10 | DVHPN2 ---
Progress Note - Dictate Date Seen: Nov 01, 2025 Has the PT tested + for MRSA If YES, has PT been informed?: No Medical Necessity Reason Pt with a Central, PICC or Fol: No Subjective No new complaints vital signs Vital Sign Date Time Temp Pulse Resp B/P (MAP) Pulse Ox O2 Delivery O2 Flow Rate FiO2 11/01/25 09:00 98.2 63 17 114/73 (87) 99 98.2 11/01/25 07:50 Nasal Cannula* 2 28 Total Intake and Output 10/31/25 10/31/25 11/01/25 15:00 23:00 07:00 Intake Total 240 ml 240 ml Balance 240 ml 240 ml medications Current Medications Medications Dose Ordered Sig/Florentin Route Start Time Stop Time Status Last Admin Dose Admin Ondansetron HCl 4 mg Q6HPRN PRN IV 10/25/25 12:15 Heparin Sodium (Porcine) 5,000 units Q8HR SC 10/26/25 14:00 11/01/25 06:17 5,000 UNITS Carvedilol 3.125 mg Q12HR PO 10/26/25 22:00 10/31/25 21:55 3.125 MG Sevelamer HCl 1,600 mg TIDWM PO 10/26/25 18:00 11/01/25 08:30 1,600 MG Vancomycin HCl 0 ml @ 0 mls/hr PER PHARMACY IV 10/29/25 07:30 Pantoprazole Sodium 40 mg DAILY@0600 PO 10/31/25 06:00 11/01/25 06:13 40 MG objective Alert and oriented x 3 NAD Lungs CTA CV: IR, S4 gallop. II/ SE< Abdomen: soft, non tender, low intensity bowel sounds Left arm edema, patent left arm AVF laboratory and microbiology Laboratory Tests 11/01/25 05:42 Test 11/01/25 05:42 Range/Units Serum Glucose 83 74-106 mg/dL Problem List 1. End-stage renal disease on hemodialysis Wednesday 2. Pneumonia 3. Acute hypoxic respiratory failure has resolved 4. New onset AFib RVR 5. Anemia 6. Cellulitis of foot 7. Left arm edema is likely due to AVF circulatory problems, will send him for outpatient vascular surgery evaluation once he is discharged Plan: Continue Hemodialysis Wednesday Plan for fistulogram as an outpatient for suspected central vein stenosis Broad-spectrum antibiotics AFib management as per Cardiology Oxygen supplementation to keep pulses more than 90% Low-potassium diet, renal diet Cardiology consult Nima for goal hemoglobin 10 to 11 grams/deciliter Dietary Evaluation Review Comments: Increase protein and energy intakes to promote wound healing cardiac Diet Expected Outcomes/Goals: improved nutrition status and gradully healed wounds Plan discussed with: Patient EHSAN CARBAJAL MD Nov 01, 2025 10:10
--- NOTE | 2025-11-01 18:06 | DVHPNRES ---
Progress Note Date Seen: Nov 01, 2025 Resident Creating Document: LENARD COFFEY RESIDENT Has the PT tested + for MRSA If YES, has PT been informed?: No Medical Necessity Reason Pt with a Central, PICC or Fol: No Subjective Review of Systems Owen Ames is a 80-year-old with past medical history of hypertension, ESRD on dialysis Wednesday and possible thyroid disorder who came to the ED with a chief complaint of shortness of breath. The patient mentioned he started having shortness of breath 1 week back which got progressively worse. The patient underwent dialysis on Wednesday were 3 L fluid was removed, without any events. After he went home from the dialysis he started feeling his shortness of breaths getting worse. He denied any chest pain, cough, phlegm, fever or chills. The patient mentions noticing blood in the stools stools being darker colored since 3 weeks after he got a colonoscopy and a polyp was removed. When he was brought to the hospital, patient was septic and EKG showed atrial fibrillation. The patient also had to be put on vasopressors 0.03 overnight, which was stopped in the morning today as his blood pressure stabilized. Nephrology evaluated the patient and patient underwent hemodialysis today, without any complications. Past medical history:hypertension, ESRD on dialysis Wednesday and possible thyroid disorder .?melanoma Past surgical history: Left upper arm AV fistula Home medications: Amlodipine, carvedilol, enalapril, sevelamer Social & Personal history: Lives at home with family, denies any smoking, alcohol, drug use Allergies: No known allergies Patient seen and examined at bedside. Patient is alert and oriented to time, place person and responding to all questions. Eyes: No Pain, No Vision change, No Conjunctivae inflammation, No Eyelid inflammation, No Redness ENT: No Ear pain, No Ear discharge, No Nose pain, No Nose discharge, No Nose congestion, No Mouth pain, No Mouth swelling, No Throat pain, No Throat swelling Cardiovascular: No Chest Pain, No Palpitations, No Orthopnea, No Paroxysmal No Dyspnea, No Edema, No Lt Headedness Respiratory: No Cough, No Dry, No Shortness of breath, No SOB with exertion, No Wheezing, No Hemoptysis, No Pleuritic Pain, No Sputum Gastrointestinal: No Nausea, No Vomiting, No Abdominal Pain, No Diarrhea, No Constipation, No Melena, No Hematochezia Genitourinary: No Dysuria, No Frequency, No Incontinence, No Hematuria, No Retention 10/27/25- the patient was seen and evaluated at bedside today. He still complains of pain in the left arm. All labs and charts were reviewed. PT request for service was placed. 10/28/25- the patient was seen and evaluated at bedside today. He is saturating well on 2 L oxygen by nasal cannula. He has no new complaints. All labs and charts were reviewed. Telemetry was reviewed, he is still in RVR with controlled rate, which we started Eliquis 2.5 mg b.i.d. nephrology recommended Fistulogram as outpatient for suspected central venous stenosis. Pending evaluation by Podiatry. Physical therapy recommended front wheel walker, request for the same was placed. 10/29/25- patient was seen at bedside today. The patient got hemodialysis today and 2.5 L fluid was removed. 10/30/25- the patient was evaluated at bedside today. Patient continues to complain of pain in the dorsum of left foot. MRI foot, left side showed myositis and/or denervation edema. Repeat blood culture was ordered. The patient was started on azithromycin 500 mg p.o. for pneumonia. 10/31/25- patient was seen and evaluated at bedside today. Patient complained of pain in his left foot for which he was given Tylenol 650 mg. Cardiology was consulted for possible RANJITH, to rule out infective endocarditis given the positive blood cultures. The patient will undergo RANJITH today. 11/01/25- patient was seen at bedside today. No new complaints. RANJITH done on 10/31/2025 revealed vegetations on mitral valve. We will be continued on the same medication regimen. Objective vital signs Vital Sign Date Time Temp Pulse Resp B/P (MAP) Pulse Ox O2 Delivery O2 Flow Rate FiO2 11/01/25 17:00 98.2 83 18 126/71 (89) 94 98.2 11/01/25 07:50 Nasal Cannula* 2 28 Total Intake and Output 10/31/25 10/31/25 11/01/25 15:00 23:00 07:00 Intake Total 240 ml 240 ml Balance 240 ml 240 ml medications Current Medications Medications Dose Ordered Sig/Florentin Route Start Time Stop Time Status Last Admin Dose Admin Ondansetron HCl 4 mg Q6HPRN PRN IV 10/25/25 12:15 Heparin Sodium (Porcine) 5,000 units Q8HR SC 10/26/25 14:00 11/01/25 16:14 5,000 UNITS Carvedilol 3.125 mg Q12HR PO 10/26/25 22:00 11/01/25 10:59 3.125 MG Sevelamer HCl 1,600 mg TIDWM PO 10/26/25 18:00 11/01/25 13:34 1,600 MG Vancomycin HCl 0 ml @ 0 mls/hr PER PHARMACY IV 10/29/25 07:30 Pantoprazole Sodium 40 mg DAILY@0600 PO 10/31/25 06:00 11/01/25 06:13 40 MG Examination General Appearance: Cooperative. Well developed. Well nourished. NAD. Patient has a right femoral central line. Head Exam: Normal inspection Neck Exam: Normal inspection. Non-tender. Normal alignment Pulmonary/Respiratory: Chest non-tender. Clear bilateral breath sounds, no crackles, no wheezing. Cardiovascular/Chest: irregularly irregular rate and rhythm, MR murmur heard at apex, No JVD. Peripheral Pulses: 2+ Radial (R). 2+ Radial (L). 2+ Pedal (R). 2+ Pedal (L) Abdominal Exam: Normal bowel sounds. Soft. normal abdomen, no visible veins, Nontender. No hepatospenomegaly. No masses Ankle Exam: Negative ankle edema Lower extremities: Negative lower extremity edema, 2 x 2 cm dark area on left great toe Upper extremity: Av fistula with palpable thrill on left inner arm, 3+ pitting edema of left upper extremity and 1+ edema of right upper extremity, engorged veins seen on the left shoulder area Neuro/Mental Status: A&O x4. Coherent. Thoughts/Psych: Normal thought pattern. Appropriate mood and affect. Good judgement and insight Skin Exam: Normal inspection. Normal color. Warm. Dry laboratory and microbiology Laboratory Tests 11/01/25 05:42 Test 11/01/25 05:42 Range/Units Serum Glucose 83 74-106 mg/dL Microbiology Date/Time Source Procedure Growth Status 10/30/25 13:43 Blood Blood Culture - Preliminary NO GROWTH AFTER 48 HOURS OF INCUBATION. Resulted 10/26/25 10:07 Nose MRSA Screen - Final Complete Labs and/or images reviewed: Labs reviewed by me, Image(s) reviewed by me Problem List/Assessment/Plan Problem List/Assessment/Plan # Septic shock, likely from pneumonia # Acute hypoxic respiratory failure likely due to pneumonia # Pneumonia likely due to Gram +/- bacteria # Rule out metastasis from melanoma - IV antibiotics vancomycin per pharmacy - CT chest- cardiomegaly, pulmonary edema, bilateral effusions - PE less likely since modified wells score<4 - blood culture shows -Staph lugdunensis, repeat blood culture-no growth after 48 hours - D-dimer 3.41 - lactic acid 1.9 >1.0 - chest x-ray shows pulmonary vascular congestion # Congestive heart failure, likely HFrEF # Atrial fibrillation, likely new onset, CHADVAsc score 4, HAS bled score 2 # Small Pericardial effusion # Infective endocarditis - echocardiogram EF 50%, mild LVH, biatrial enlargement,MS suspected - last echocardiogram done in 2019 showed LVEF 45% with global hypokinesis with small pericardial effusion - started on Eliquis 2.5 mg b.i.d. p.o. on 10/29/25 - RANJITH done on 10/31/2025- mitral valve vegetation # normocytic normochromic anemia, possibly of chronic disease, S/P 1 PRBC - monitor H&H - transfuse if hemoglobin is less than 7 # End-stage renal disease on dialysis MWF - nephrology on board- hemodialysis on 10/31/2025 - monitor electrolytes # ?Rectal Bleeding - h/o colonoscopy status post polypectomy - IV Protonix - stool occult blood negative, repeat sample sent # Rule out DVT upper extremity # possible cellulitis left arm - No venous thrombus identified in the LEFT upper extremity vessels evaluated above. - fistulogram as an outpatient for suspected central vein stenosis # rule out osteomyelitis of left foot -left foot CT- Diffuse vascular atherosclerotic disease. Nonvisualization of flow in the dorsalis pedis artery. Flow is maintained to the foot via collaterals.Diffuse subcutaneous soft-tissue edema and swelling throughout the foot; possibly cellulitis. -podiatry on board, foot MRI -no definitive MR evidence of osteomyelitis,Indeterminate osteitis /bone marrow edema and Edematous appearance of the intrinsic musculature likely compatible with myositis and/or denervation edema PUD prophylaxis: Protonix DVT prophylaxis: Held because patient is anemic and reports rectal bleeding Goals of care discussed with the patient and his grandson at bedside for over 25 minutes. Chemical code only. Plan discussed with Dr. Jim Plan discussed with: Patient My Orders My Orders Orders - LENARD COFFEY RESIDENT Procedure Category Date Status Time Vancomycin,Random LAB 11/02/25 Verified 04:00 Creatinine LAB 11/02/25 Verified 04:00 Complete Blood Count LAB 11/02/25 Verified 04:00 Dietary Evaluation Review Comments: Increase protein and energy intakes to promote wound healing cardiac Diet Expected Outcomes/Goals: improved nutrition status and gradully healed wounds Visit Coding STANDARD RES Billing Provider: CHONG JIM MD Date of Service if different f: Nov 01, 2025 Common Visit Codes: [id number] INP/OBS CARE(HIGH) LENARD COFFEY RESIDENT Nov 01, 2025 18:06
[2025-11-02] VITALS (8 sets, daily range): BP systolic 115–156; BP diastolic 64–101; PULSE 70–88; RESP 16–21; TEMP 96.9–98.5; O2SAT 93–98
[2025-11-02] MEDS ORDERED: SODIUM CHL 0.9% 1000 ML BAG XX ONE (07:00)
[2025-11-02 07:19] LABS: Anion Gap 10 (5-15); Carbon Dioxide 30 mmol/L (20-31); Potassium 4.8 mmol/L (3.5-5.1)
[2025-11-02 07:21] LABS: Calcium 9.3 mg/dL (8.7-10.4)
[2025-11-02 07:25] LABS: Chloride 96 mmol/L (98-107); Sodium 136 mmol/L (136-145)
[2025-11-02 07:26] LABS: BUN/Creatinine Ratio 4.4 (10.0-20.0); Glucose 81 mg/dL (74-106)
[2025-11-02 07:34] LABS: Blood Urea Nitrogen 25 mg/dL (9-23)
[2025-11-02 08:56] LABS: Hematocrit 27.0 % (41.0-53.0); Hemoglobin 8.8 g/dL (13.5-17.5); Mean Corpuscular Hemoglobin 29.4 pg (28.0-32.0); Mean Corpuscular Volume 89.9 fL (80.0-100.0); Nucleated Red Blood Cells % 0.0 %
--- NOTE | 2025-11-02 13:39 | DVHPN2 ---
Progress Note - Dictate Date Seen: Nov 02, 2025 Has the PT tested + for MRSA If YES, has PT been informed?: No Medical Necessity Reason Pt with a Central, PICC or Fol: No Subjective No new complaints vital signs Vital Sign Date Time Temp Pulse Resp B/P (MAP) Pulse Ox O2 Delivery O2 Flow Rate FiO2 11/02/25 10:21 62 110/65 11/02/25 09:00 97.8 16 97 97.8 11/02/25 08:00 Nasal Cannula* 2 28 Total Intake and Output 11/01/25 11/01/25 11/02/25 15:00 23:00 07:00 Intake Total 775 ml 200 ml Balance 775 ml 200 ml medications Current Medications Medications Dose Ordered Sig/Florentin Route Start Time Stop Time Status Last Admin Dose Admin Ondansetron HCl 4 mg Q6HPRN PRN IV 10/25/25 12:15 Heparin Sodium (Porcine) 5,000 units Q8HR SC 10/26/25 14:00 11/02/25 06:22 5,000 UNITS Carvedilol 3.125 mg Q12HR PO 10/26/25 22:00 11/02/25 09:21 3.125 MG Sevelamer HCl 1,600 mg TIDWM PO 10/26/25 18:00 11/02/25 09:21 1,600 MG Vancomycin HCl 0 ml @ 0 mls/hr PER PHARMACY IV 10/29/25 07:30 Pantoprazole Sodium 40 mg DAILY@0600 PO 10/31/25 06:00 11/02/25 06:20 40 MG objective Alert and oriented x 3 NAD Lungs CTA CV: IR, S4 gallop. II/ SE< Abdomen: soft, non tender, low intensity bowel sounds Left arm edema, patent left arm AVF laboratory and microbiology Laboratory Tests 11/02/25 08:22 11/02/25 06:18 Test 11/02/25 06:18 Range/Units Serum Glucose 81 74-106 mg/dL Problem List 1. End-stage renal disease on hemodialysis Wednesday 2. Pneumonia 3. Acute hypoxic respiratory failure has resolved 4. New onset AFib RVR 5. Anemia 6. Cellulitis of foot, work up negative for OM 7. Left arm edema is likely due to AVF circulatory problems, will send him for outpatient vascular surgery evaluation once he is discharged 8. Endocarditis: Bacteremia with RANJITH showing valve vegetation Plan: Continue Hemodialysis Wednesday Plan for fistulogram as an outpatient for suspected central vein stenosis Broad-spectrum antibiotics AFib management as per Cardiology Oxygen supplementation to keep pulses more than 90% Low-potassium diet, renal diet Cardiology consult Nima for goal hemoglobin 10 to 11 grams/deciliter Dietary Evaluation Review Comments: Increase protein and energy intakes to promote wound healing cardiac Diet Expected Outcomes/Goals: improved nutrition status and gradully healed wounds Plan discussed with: Patient EHSAN CARBAJAL MD Nov 02, 2025 13:39
[2025-11-02] MEDS ORDERED: VANCOMYCIN 500mg/100mL 100 ML IV ONE (15:00)
[2025-11-02] MEDS: VANCOMYCIN 750mg/100mL IV ONE (16:01)
--- NOTE | 2025-11-02 18:00 | DVHPNRES ---
Progress Note Date Seen: Nov 02, 2025 Resident Creating Document: LENARD COFFEY RESIDENT Has the PT tested + for MRSA If YES, has PT been informed?: No Medical Necessity Reason Pt with a Central, PICC or Fol: No Subjective Review of Systems Owen Ames is a 80-year-old with past medical history of hypertension, ESRD on dialysis Wednesday and possible thyroid disorder who came to the ED with a chief complaint of shortness of breath. The patient mentioned he started having shortness of breath 1 week back which got progressively worse. The patient underwent dialysis on Wednesday were 3 L fluid was removed, without any events. After he went home from the dialysis he started feeling his shortness of breaths getting worse. He denied any chest pain, cough, phlegm, fever or chills. The patient mentions noticing blood in the stools stools being darker colored since 3 weeks after he got a colonoscopy and a polyp was removed. When he was brought to the hospital, patient was septic and EKG showed atrial fibrillation. The patient also had to be put on vasopressors 0.03 overnight, which was stopped in the morning today as his blood pressure stabilized. Nephrology evaluated the patient and patient underwent hemodialysis today, without any complications. Past medical history:hypertension, ESRD on dialysis Wednesday and possible thyroid disorder .?melanoma Past surgical history: Left upper arm AV fistula Home medications: Amlodipine, carvedilol, enalapril, sevelamer Social & Personal history: Lives at home with family, denies any smoking, alcohol, drug use Allergies: No known allergies Patient seen and examined at bedside. Patient is alert and oriented to time, place person and responding to all questions. Eyes: No Pain, No Vision change, No Conjunctivae inflammation, No Eyelid inflammation, No Redness ENT: No Ear pain, No Ear discharge, No Nose pain, No Nose discharge, No Nose congestion, No Mouth pain, No Mouth swelling, No Throat pain, No Throat swelling Cardiovascular: No Chest Pain, No Palpitations, No Orthopnea, No Paroxysmal No Dyspnea, No Edema, No Lt Headedness Respiratory: No Cough, No Dry, No Shortness of breath, No SOB with exertion, No Wheezing, No Hemoptysis, No Pleuritic Pain, No Sputum Gastrointestinal: No Nausea, No Vomiting, No Abdominal Pain, No Diarrhea, No Constipation, No Melena, No Hematochezia Genitourinary: No Dysuria, No Frequency, No Incontinence, No Hematuria, No Retention 10/27/25- the patient was seen and evaluated at bedside today. He still complains of pain in the left arm. All labs and charts were reviewed. PT request for service was placed. 10/28/25- the patient was seen and evaluated at bedside today. He is saturating well on 2 L oxygen by nasal cannula. He has no new complaints. All labs and charts were reviewed. Telemetry was reviewed, he is still in RVR with controlled rate, which we started Eliquis 2.5 mg b.i.d. nephrology recommended Fistulogram as outpatient for suspected central venous stenosis. Pending evaluation by Podiatry. Physical therapy recommended front wheel walker, request for the same was placed. 10/29/25- patient was seen at bedside today. The patient got hemodialysis today and 2.5 L fluid was removed. 10/30/25- the patient was evaluated at bedside today. Patient continues to complain of pain in the dorsum of left foot. MRI foot, left side showed myositis and/or denervation edema. Repeat blood culture was ordered. The patient was started on azithromycin 500 mg p.o. for pneumonia. 10/31/25- patient was seen and evaluated at bedside today. Patient complained of pain in his left foot for which he was given Tylenol 650 mg. Cardiology was consulted for possible RANJITH, to rule out infective endocarditis given the positive blood cultures. The patient will undergo RANJITH today. 11/01/25- patient was seen at bedside today. No new complaints. RANJITH done on 10/31/2025 revealed vegetations on mitral valve. We will be continued on the same medication regimen. 11/02/25- the patient was seen at bedside today. No new complaints. Patient underwent hemodialysis today and 1.5 L was removed. Grandson was by bedside and was given updates. human services assistant consult to arrange IV vancomycin at the dialysis center was requested. The patient can be discharged once IV vancomycin has been arranged at the dialysis center. Objective vital signs Vital Sign Date Time Temp Pulse Resp B/P (MAP) Pulse Ox O2 Delivery O2 Flow Rate FiO2 11/02/25 17:00 98.5 74 18 126/64 (84) 97 98.5 11/02/25 08:00 Nasal Cannula* 2 28 Total Intake and Output 11/01/25 11/01/25 11/02/25 15:00 23:00 07:00 Intake Total 775 ml 200 ml Balance 775 ml 200 ml medications Current Medications Medications Dose Ordered Sig/Florentin Route Start Time Stop Time Status Last Admin Dose Admin Ondansetron HCl 4 mg Q6HPRN PRN IV 10/25/25 12:15 Heparin Sodium (Porcine) 5,000 units Q8HR SC 10/26/25 14:00 11/02/25 06:22 5,000 UNITS Carvedilol 3.125 mg Q12HR PO 10/26/25 22:00 11/02/25 09:21 3.125 MG Sevelamer HCl 1,600 mg TIDWM PO 10/26/25 18:00 11/02/25 17:07 1,600 MG Vancomycin HCl 0 ml @ 0 mls/hr PER PHARMACY IV 10/29/25 07:30 Pantoprazole Sodium 40 mg DAILY@0600 PO 10/31/25 06:00 11/02/25 06:20 40 MG Examination General Appearance: Cooperative. Well developed. Well nourished. NAD. Patient has a right femoral central line. Head Exam: Normal inspection Neck Exam: Normal inspection. Non-tender. Normal alignment Pulmonary/Respiratory: Chest non-tender. Clear bilateral breath sounds, no crackles, no wheezing. Cardiovascular/Chest: irregularly irregular rate and rhythm, MR murmur heard at apex, No JVD. Peripheral Pulses: 2+ Radial (R). 2+ Radial (L). 2+ Pedal (R). 2+ Pedal (L) Abdominal Exam: Normal bowel sounds. Soft. normal abdomen, no visible veins, Nontender. No hepatospenomegaly. No masses Ankle Exam: Negative ankle edema Lower extremities: Negative lower extremity edema, 2 x 2 cm dark area on left great toe Upper extremity: Av fistula with palpable thrill on left inner arm, 3+ pitting edema of left upper extremity and 1+ edema of right upper extremity, engorged veins seen on the left shoulder area Neuro/Mental Status: A&O x4. Coherent. Thoughts/Psych: Normal thought pattern. Appropriate mood and affect. Good judgement and insight Skin Exam: Normal inspection. Normal color. Warm. Dry laboratory and microbiology Laboratory Tests 11/02/25 08:22 11/02/25 06:18 Test 11/02/25 06:18 Range/Units Serum Glucose 81 74-106 mg/dL Microbiology Date/Time Source Procedure Growth Status 10/30/25 13:43 Blood Blood Culture - Preliminary NO GROWTH AFTER 72 HOURS OF INCUBATION. Resulted 10/26/25 10:07 Nose MRSA Screen - Final Complete Labs and/or images reviewed: Labs reviewed by me, Image(s) reviewed by me Problem List/Assessment/Plan Problem List/Assessment/Plan # Septic shock, likely from pneumonia # Acute hypoxic respiratory failure likely due to pneumonia # Pneumonia likely due to Gram +/- bacteria # Rule out metastasis from melanoma - IV antibiotics vancomycin per pharmacy - CT chest- cardiomegaly, pulmonary edema, bilateral effusions - PE less likely since modified wells score<4 - blood culture shows -Staph lugdunensis, repeat blood culture-no growth after 72 hours - chest x-ray shows pulmonary vascular congestion # Congestive heart failure, likely HFrEF # Atrial fibrillation, likely new onset, CHADVAsc score 4, HAS bled score 2 # Small Pericardial effusion # 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 p.o. on 10/29/25 - RANJITH done on 10/31/2025- mitral valve vegetation # normocytic normochromic anemia, possibly of chronic disease, S/P 1 PRBC - monitor H&H - transfuse if hemoglobin is less than 7 # End-stage renal disease on dialysis MWF - nephrology on board- hemodialysis on 11/02/2025- removed 1.5 liter - monitor electrolytes # ?Rectal Bleeding - h/o colonoscopy status post polypectomy - IV Protonix - stool occult blood negative, repeat sample sent # Rule out DVT upper extremity # possible cellulitis left arm # Possible central vein stenosis, left - No venous thrombus identified in the LEFT upper extremity vessels evaluated above. - fistulogram as an outpatient for suspected central vein stenosis # rule out osteomyelitis of left foot -left foot CT- Diffuse vascular atherosclerotic disease. Nonvisualization of flow in the dorsalis pedis artery. Flow is maintained to the foot via collaterals.Diffuse subcutaneous soft-tissue edema and swelling throughout the foot; possibly cellulitis. -podiatry on board, foot MRI -no definitive MR evidence of osteomyelitis,Indeterminate osteitis /bone marrow edema and Edematous appearance of the intrinsic musculature likely compatible with myositis and/or denervation edema PUD prophylaxis: Protonix DVT prophylaxis: Held because patient is anemic and reports rectal bleeding Goals of care discussed with the patient and his grandson at bedside for over 25 minutes. Chemical code only. Plan discussed with Dr. Jim Plan discussed with: Patient My Orders My Orders Orders - LENARD COFFEY RESIDENT Procedure Category Date Status Time Vancomycin,Random LAB 11/03/25 Verified 04:00 Creatinine LAB 11/03/25 Verified 04:00 Dietary Evaluation Review Comments: Increase protein and energy intakes to promote wound healing cardiac Diet Expected Outcomes/Goals: improved nutrition status and gradully healed wounds Visit Coding STANDARD RES Billing Provider: CHONG JIM MD Date of Service if different f: Nov 02, 2025 Common Visit Codes: [id number] INP/OBS CARE(HIGH) LENARD COFFEY RESIDENT Nov 02, 2025 18:00
[2025-11-02] MEDS: EPOETIN ALFA-EPBX 10,000 UNIT/1ML VIAL SC ONE (22:42)
[2025-11-03 01:00] VITALS: BP 149/72; PULSE 81; RESP 18; TEMP 98.5; O2SAT 94
[2025-11-03 05:00] VITALS: BP 146/70; PULSE 74; RESP 18; TEMP 98.6; O2SAT 95
[2025-11-03 06:53] LABS: Nucleated Red Blood Cells % 0.2 %
[2025-11-03 06:56] LABS: Hematocrit 25.7 % (41.0-53.0); Hemoglobin 8.4 g/dL (13.5-17.5); Mean Corpuscular Hemoglobin 28.8 pg (28.0-32.0); Mean Corpuscular Volume 88.6 fL (80.0-100.0)
[2025-11-03 06:59] LABS: Chloride 98 mmol/L (98-107); Potassium 4.2 mmol/L (3.5-5.1); Sodium 139 mmol/L (136-145)
[2025-11-03 07:00] LABS: Anion Gap 10 (5-15)
[2025-11-03 07:01] LABS: Calcium 9.2 mg/dL (8.7-10.4)
[2025-11-03 07:05] LABS: Glucose 81 mg/dL (74-106)
[2025-11-03 07:06] LABS: BUN/Creatinine Ratio 3.1 (10.0-20.0); Blood Urea Nitrogen 13 mg/dL (9-23)
[2025-11-03 07:10] LABS: Carbon Dioxide 31 mmol/L (20-31)
[2025-11-03 08:00] VITALS: PULSE 66; PULSE 78; RESP 16; O2SAT 97
[2025-11-03 08:36] VITALS: BP 140/70; PULSE 81; RESP 18; TEMP 98.1; O2SAT 100
--- NOTE | 2025-11-03 11:37 | DVHPN2 ---
Progress Note - Dictate Date Seen: Nov 03, 2025 Has the PT tested + for MRSA If YES, has PT been informed?: No Medical Necessity Reason Pt with a Central, PICC or Fol: No Subjective No new complaints vital signs Vital Sign Date Time Temp Pulse Resp B/P (MAP) Pulse Ox O2 Delivery O2 Flow Rate FiO2 11/03/25 10:06 81 140/70 11/03/25 08:36 98.1 18 100 98.1 11/02/25 20:00 Room Air* 0 21 Total Intake and Output 11/02/25 11/02/25 11/03/25 15:00 23:00 07:00 Intake Total 760 ml 600 ml Output Total 200 ml Balance 560 ml 600 ml medications Current Medications Medications Dose Ordered Sig/Florentin Route Start Time Stop Time Status Last Admin Dose Admin Ondansetron HCl 4 mg Q6HPRN PRN IV 10/25/25 12:15 Heparin Sodium (Porcine) 5,000 units Q8HR SC 10/26/25 14:00 11/03/25 05:48 5,000 UNITS Carvedilol 3.125 mg Q12HR PO 10/26/25 22:00 11/03/25 10:06 3.125 MG Sevelamer HCl 1,600 mg TIDWM PO 10/26/25 18:00 11/03/25 08:24 1,600 MG Vancomycin HCl 0 ml @ 0 mls/hr PER PHARMACY IV 10/29/25 07:30 Pantoprazole Sodium 40 mg DAILY@0600 PO 10/31/25 06:00 11/03/25 05:48 40 MG objective Alert and oriented x 3 NAD Lungs CTA CV: IR, S4 gallop. II/ SE< Abdomen: soft, non tender, low intensity bowel sounds Left arm edema, patent left arm AVF laboratory and microbiology Laboratory Tests 11/03/25 05:49 Test 11/03/25 05:49 Range/Units Serum Glucose 81 74-106 mg/dL Problem List 1. End-stage renal disease on hemodialysis Wednesday 2. Pneumonia 3. Acute hypoxic respiratory failure has resolved 4. New onset AFib RVR 5. Anemia 6. Cellulitis of foot, work up negative for OM 7. Left arm edema is likely due to AVF circulatory problems, will send him for outpatient vascular surgery evaluation once he is discharged 8. 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
[2025-11-03 12:46] VITALS: BP 156/64; PULSE 82; RESP 17; TEMP 97.9; O2SAT 96
[2025-11-03] MEDS: VANCOMYCIN 500mg/100mL 100 ML IV ONE (15:00)
[2025-11-03 16:54] VITALS: BP 139/74; PULSE 82; RESP 17; TEMP 98.6; O2SAT 94
--- NOTE | 2025-11-03 17:46 | DVHDSRES ---
Discharge Summary Date of Admission Resident Creating Document: PAOLO PACHECO RESIDENT Oct 25, 2025 at 12:13 Date of Discharge: Nov 03, 2025 Admitting Diagnosis Acute hypoxic respiratory failure likely due to pneumonia Pneumonia likely due to Gram +/- bacteria Septic shock likely from pneumonia Rule out metastasis from melanoma Congestive heart failure, likely HFrEF Atrial fibrillation, likely new onset ?Pericardial effusion End-stage renal disease on dialysis MWF ?Rectal Bleeding h/o colonoscopy status post polypectomy Wounds: none Labs/Diagnostic Data: Laboratory Results Test 11/03/25 05:49 10/28/25 05:40 10/26/25 12:25 10/26/25 08:55 White Blood Count 6.0 10^3/uL (4.4-10.8) Red Blood Count 2.90 10^6/uL (4.5-5.90) Hemoglobin 8.4 g/dL (13.5-17.5) Hematocrit 25.7 % (41.0-53.0) Mean Corpuscular Volume 88.6 fL (80.0-100.0) Mean Corpuscular Hemoglobin 28.8 pg (28.0-32.0) Mean Corpuscular Hemoglobin Concent 32.5 g/dL (32.0-36.0) Red Cell Distribution Width 17.9 % (11.8-14.3) Platelet Count 248 10^3/uL (140-450) Mean Platelet Volume 8.5 fL (6.9-10.8) Neutrophils (%) (Auto) 68.5 % (37.0-80.0) Lymphocytes (%) (Auto) 15.7 % (10.0-50.0) Monocytes (%) (Auto) 10.5 % (0.0-12.0) Eosinophils (%) (Auto) 4.2 % (0.0-7.0) Basophils (%) (Auto) 1.1 % (0.0-2.0) Neutrophils # (Auto) 4.1 10 ^3/uL (1.6-8.6) Lymphocytes # (Auto) 0.9 10 ^3/uL (0.4-5.4) Monocytes # (Auto) 0.6 10 ^3/uL (0-1.3) Eosinophils # (Auto) 0.3 10 ^3/uL (0-0.8) Basophils # (Auto) 0.1 10 ^3/uL (0-0.2) Nucleated Red Blood Cells 0.2 % Sodium Level 139 mmol/L (136-145) Potassium Level 4.2 mmol/L (3.5-5.1) Chloride Level 98 mmol/L (98-107) Carbon Dioxide Level 31 mmol/L (20-31) Anion Gap 10 (5-15) Blood Urea Nitrogen 13 mg/dL (9-23) Creatinine 4.18 mg/dL (0.700-1.30) Glomerular Filtration Rate Calc 14 mL/min (>90) BUN/Creatinine Ratio 3.1 (10.0-20.0) Serum Glucose 81 mg/dL (74-106) Calcium Level 9.2 mg/dL (8.7-10.4) Random Vancomycin Level 11.9 ug/mL (5-10) Hemoglobin A1c 5.1 % A1C (<5.7) Troponin I High Sensitivity 67 ng/L (</=54) Hepatitis B Surface Antigen Negative (Negative) Test 10/26/25 06:20 10/26/25 05:00 10/25/25 17:10 10/25/25 16:21 B-Type Natriuretic Peptide 785.45 pg/mL (0-100) Thyroid Stimulating Hormone (TSH) 3.52 uIU/mL (0.55-4.78) Stool Occult Blood Sample #3 Negative (Negative) Lactic Acid Level 1.0 mmol/L (0.4-2.0) Blood Gas Specimen Type Arterial Blood Gas Sample Site Left radial Blood Gas Patient Temperature 37.0 Arterial Blood Date Drawn [id number] Arterial Blood pH 7.517 (7.350-7.450) Arterial Blood Partial Pressure CO2 39.1 mmHg (35.0-48.0) Arterial Blood Partial Pressure O2 78.2 mmHg (83.0-108.0) Arterial Blood HCO3 31.0 mmol/L (21.0-28.0) Arterial Blood Oxygen Saturation 95.3 % (94.0-98.0) Arterial Blood Base Excess 7.5 mmol/L (-2.0-3.0) Arterial Blood Oxyhemoglobin 93.8 % (94.0-98.0) Arterial Blood Carboxyhemoglobin 1.0 % (0.5-1.5) Arterial Blood Methemoglobin 0.6 % (0.0-1.5) Arterial Blood Deoxyhemoglobin 4.6 % (0.0-5.0) Silvano Test Yes Blood Gas Total Hemoglobin 8.00 g/dL (13.5-17.5) Blood Gas Modality Nasal cannula FiO2 % 32.0 Test 10/25/25 09:25 Prothrombin Time 13.0 sec (9.3-11.8) Prothrombin Time INR 1.25 (0.9-1.15) Activated Partial Thromboplast Time 32.8 SEC (24.5-34.5) D-Dimer, Quantitative 3.41 mg/L FEU (0.0-0.49) Total Bilirubin 0.6 mg/dL (0.2-1.0) Aspartate Amino Transferase (AST) 39 U/L (13-40) Alanine Aminotransferase (ALT) 23 U/L (7-40) Alkaline Phosphatase 107 U/L (46-116) Total Protein 6.8 g/dL (5.7-8.2) Albumin 3.2 g/dL (3.2-4.8) Other Laboratory Tests 11/03/25 05:49 Brief Hx & Hospital Course: Patient is a 80-year-old male with a medical history of hypertension, ESRD on dialysis was brought to the hospital with a chief complaint of shortness of breath and generalized weakness. On arrival to the ER patient was septic and later had hypotension and had to be started on vasopressors but later discontinued. Blood cultures showed growth of Staph lugdunensis. Echocardiogram showed LVEF 50% with the aortic stenosis, [id number] mitral regurgitation and with the suspicion of valvular vegetation cardiology were consulted and patient underwent RANJITH which showed thickening and a small vegetation along the tip of the posterolateral aspect of the mitral leaflet. With the patient meeting modified Chan's criteria for infective endocarditis, was decided to treat the patient for at least 6 weeks of IV antibiotics. Since patient gets dialysis Wednesday at [facility] dialysis, process was initiated to reach antibiotics at dialysis center. As per the individual small group instructor Dr. Alcantara, he recommended to discharge the patient and that he will arrange IV antibiotics to be given at the hemodialysis center for the next 6 weeks. Patient also has atrial fibrillation but after discussion with the patient's son, did not want the patient to be on anticoagulation since he was bleeding per rectum after the colonoscopy. Left arm swelling, nephrology recommended outpatient fistulogram. Patient discharged home in stable condition. Discharge plan: IV antibiotics to be arranged with the individual small group instructor at hemodialysis center for the next 6 weeks. IV vancomycin recommended Continue on home medications of carvedilol 3.125 b.i.d., if blood pressure remains elevated above 160, recommend to resume enalapril 2.5 mg daily Time spent on discharge plannin minutes Plan discussed with Dr. Kramer Consults/Reason for consult Cardiology consultation for possible infective endocarditis Nephrology consultation for ESRD on dialysis Operations or Procedures Operative Report - 2 Report Details Date: 10/31/25 Preop Diagnosis: Fever sepsis Postop Diagnosis: Mitral valve vegetation Surgeon: Manuel Ambrosio MD Anesthesiologist: Conscious sedation Anesthesia: Mac Consent: The patient was informed of the risks and benefits of the procedure. These include but are not limited to complications of anesthesia, postoperative infection, incomplete relief of symptoms, recurrence of symptoms, damage to blood vessels, nerves and tendons, deep venous thrombosis, pulmonary embolism and possible need for repeat surgery in the future. Complications: No complications Findings: Mitral valve vegetation Indications for Surgery: Sepsis Name of Procedure Performed Transesophageal echocardiogram Procedure Details Procedure Details: Prior full informed consent obtained the patient was prepped and draped in usual fashion lidocaine gel given for gargle. Patient was placed in left lateral and semi-Bolanos position. Transesophageal probe was passed without difficulty. Conclusions 1. Technically good study. Sinus rhythm. Chamber dimension evaluation shows mild left atrial enlargement RV enlargement. Right atrial enlargement. There is a thickening and small vegetation along the tip of the posterolateral aspect of the mitral leaflet. It has degenerated part of the tip of the valve. There is some disease knows it also along the anterior mitral leaflet tip. There is slight prolapse of in echodensity which appears to be a vegetation into the left atrium. It is rather small. The aortic leaflets are also mildly thickened and calcified. The edge of the left coronary cusp with the non coronary cusp also appears to show some thickening and hypodensity. Can not rule out a small vegetation at this level as well. It is slightly mobile. The tricuspid and pulmonic or structurally normal. Left ventricular function is preserved at 50% with normal RV function. Severe mitral insufficiency. Mild aortic insufficiency. Moderate tricuspid regurgitation. No atrial or ventricular septal defects. Bubble study negative for crossing over. No other masses noted. Vegetations are highly probable in the mitral and aortic valves. Clinical correlation strongly recommended. No pericardial effusion noted. Condition Guarded Disposition 2 Still a Patient Date of Service: Oct 31, 2025 Cardiology Common Codes: 58644-XQZLVBT INP/OBS CARE (High) Cardiology Procedure Codes: 63171-YFC W/IMG DOC INCL PROB MANUEL VELASCO Sr., MD Oct 31, 2025 16:31 Condition at Discharge: Good Final Diagnosis/Problems List Septic shock, likely from pneumonia Acute hypoxic respiratory failure likely due to pneumonia Pneumonia likely due to Gram +/- bacteria Congestive heart failure, likely HFrEF Atrial fibrillation, likely new onset, CHADVAsc score 4, HAS bled score 2 Small Pericardial effusion Infective endocarditis, mitral valve vegetation normocytic normochromic anemia, possibly of chronic disease, S/P 1 PRBC End-stage renal disease on dialysis MWF Rectal Bleeding, ruled out Ruled out DVT upper extremity possible cellulitis left arm,ruled out Possible central vein stenosis, left ruled out osteomyelitis of left foot Melanoma of left foot big toe Discharge Disposition: Home Discharge Instruct/Medications Diet: Cardiac 2g Na,low cholest, Renal Activity: No Restrictions, As Tolerated Follow Up/Referral: Follow-up in [facility] clinic in 1 week Follow-up with PCP in 1 week Follow-up at dialysis center for IV antibiotic vancomycin for 4 weeks Medications: Per EMR Scheduled B-Complex W/ C & Folic Acid (Nephro-Roger Rx), 1 TAB PO DAILY, (Reported) Carvedilol (Coreg), 3.125 MG PO Q12HR Enalapril Maleate (Enalapril Maleate), 2.5 MG PO Q12HR Esomeprazole Magnesium (Esomeprazole Magnesium Dr), 40 MG PO DAILY, (Reported) Sevelamer Hydrochloride (Renagel), 1,600 MG PO TID, (Reported) Vancomycin Hcl (Vancomycin Po), 125 MG PO QID Discharge Statement: "Patient was advised to return to the ER or call 911 if any headaches, dizziness, shortness of breath, chest pain, abdominal pain, bleeding, fevers, or worsening of medical condition. Patient was counseled about treatment plan, medications, possible side effects, patientverbalized understanding. All questions were answered to the best of my ability. This discharge took greater then 30 minutes in planning, reviewing documentation, counseling the patient, and discussing with other team members." ASSESSMENT ASSESSMENT Assessment Septic shock, likely from pneumonia Acute hypoxic respiratory failure likely due to pneumonia Pneumonia likely due to Gram +/- bacteria Congestive heart failure, likely HFrEF Atrial fibrillation, likely new onset, CHADVAsc score 4, HAS bled score 2 Small Pericardial effusion Infective endocarditis, mitral valve vegetation normocytic normochromic anemia, possibly of chronic disease, S/P 1 PRBC End-stage renal disease on dialysis MWF Rectal Bleeding, ruled out Ruled out DVT upper extremity possible cellulitis left arm,ruled out Possible central vein stenosis, left ruled out osteomyelitis of left foot Melanoma of left foot big toe Visit Coding STANDARD RES Billing Provider: AMADEO KRAMER MD Date of Service if different f: Nov 03, 2025 Common Visit Codes: 66975-BCU/OBS DISCH DAY >30min PAOLO PACHECO RESIDENT Nov 03, 2025 17:46
== END 2025-11-03 17:42 | disposition home or self-care (01) | DRG 720 ==
LOC: ER 08:55 → OVERFLOW 12:13 → TELE-WESTW 10-26 16:50
PROVIDERS: ADMIT Student in an Organized Health Care Education/Training Program; ATTEND Student in an Organized Health Care Education/Training Program
PROC: 5A1D70Z Performance of Urinary Filtration, Intermittent, Less than 6 Hours Per Day (ICD-10-PCS; principal; 2025-10-26)
PROC: 30233N1 Transfusion of Nonautologous Red Blood Cells into Peripheral Vein, Percutaneous Approach (ICD-10-PCS; 2025-10-26)
PROC: 5A1D70Z Performance of Urinary Filtration, Intermittent, Less than 6 Hours Per Day (ICD-10-PCS; 2025-10-29)
PROC: 5A1D70Z Performance of Urinary Filtration, Intermittent, Less than 6 Hours Per Day (ICD-10-PCS; 2025-10-31)
PROC: B24BZZ4 Ultrasonography of Heart with Aorta, Transesophageal (ICD-10-PCS; 2025-10-31)
DX: A41.50 Gram-negative sepsis, unspecified (principal); I33.0 Acute and subacute infective endocarditis; R65.21 Severe sepsis with septic shock; J96.01 Acute respiratory failure with hypoxia; I13.2 Hypertensive heart and chronic kidney disease with heart failure and with stage 5 chronic kidney disease, or end stage renal disease; J15.69 Pneumonia due to other Gram-negative bacteria; N18.6 End stage renal disease; Z99.2 Dependence on renal dialysis; J15.9 Unspecified bacterial pneumonia; E11.22 Type 2 diabetes mellitus with diabetic chronic kidney disease; D64.9 Anemia, unspecified; I48.91 Unspecified atrial fibrillation; E87.5 Hyperkalemia; I50.32 Chronic diastolic (congestive) heart failure; E78.5 Hyperlipidemia, unspecified; I34.0 Nonrheumatic mitral (valve) insufficiency; I07.1 Rheumatic tricuspid insufficiency; I87.1 Compression of vein; Z83.3 Family history of diabetes mellitus; Z85.820 Personal history of malignant melanoma of skin
CPT/HCPCS: 36415; 36430; 36600; 71045; 71250; 73700; 73718; 80048; 80053; 80202; 82270; 82565; 82805; 83036; 83605; 83880; 84443; 84484; 85014; 85018; 85025; 85379; 85610; 85730; 86850; 86900; 86901; 86920; 87040; 87077; 87081; 87186; 87340; 90935; 92610; 93005; 93306; 93312; 93971; 96365; 96367; 96375; 97110; 97116; 97163; 97530; G0378; J2250; J2470